=== PATIENT | male | born 1955 | race Caucasian/White ===

== ENCOUNTER 2020-12-31 22:37 | Observation (INO) ==
[2020-12-31] MEDS ORDERED: ASPIRIN CHEW 324 MG PO STA (22:55)
[2020-12-31] MEDS ORDERED: ASPIRIN 81 MG CHEW ONE (22:55)
--- NOTE | 2020-12-31 23:01 | Emergency Department Note ---
Impression & Plan Chest pain, Heart palpitations, Premature ventricular contraction ED Provider Note NAME: ABHI DOAN AGE: 65 SEX: M : 1955 ARRIVES VIA: Walk-In INFORMANT: Patient, ED PROVIDER(S): Manuel Lopez DO CHIEF COMPLAINT: Chest pain HPI: The patient is a 65-year-old male who is a history of coronary artery bypass grafting who presented to the emergency department for an evaluation of chest pain. The patient states that earlier this evening he started noticing chest pain while he was helping make dinner. 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 He states it was not overly exertional compared to his normal baseline. The patient started noticing pain in his left upper extremity and into his left upper chest. He has had similar episodes in the past with coronary artery syndrome however the patient states this pain is somewhat different. He did take baby aspirin as well as 3 sublingual nitroglycerin prior to coming to the emergency department without any a slight amount of relief of his pain. He denies having any shortness of breath. He denies having any back pain. He said no abdominal pain or vomiting. He denies having any lower extremity swelling. He states on his most recent catheterization his coronary artery bypass graft appeared to have failed and collapsed. He was felt to have no further intervention that would help him and his medical management at this time. Otherwise he states he has been very compliant with his outpatient medications. He did take a dose of beta-juana this evening as well. ROS: See above HPI for pertinent positives & negatives. A total of 10 systems reviewed and were otherwise negative. PAST MEDICAL HISTORY: See Below PAST SURGICAL HISTORY: See Below FAMILY HISTORY: See Below SOCIAL HISTORY: See Below HOME MEDICATIONS: See Below ALLERGIES: See Below VITALS: See Below PHYSICAL EXAMINATION: GENERAL: The patient is awake and alert. The patient is somewhat anxious appearing. EYES: The conjunctivae are clear. The pupils are round and reactive. EARS, NOSE, MOUTH AND THROAT: The nose is without any evidence of any deformity. NECK: The neck is nontender and supple. RESPIRATORY: Normal respiratory effort is noted there is no evidence of wheezing rhonchi or rales CARDIOVASCULAR: Regular rate and rhythm noted there no murmurs rubs or gallops normal S1 normal S2. GASTROINTESTINAL: The abdomen is soft. Abdomen is nontender. MUSCULOSKELETAL/EXTREMITIES: There is no evidence of gross deformity full range of motion is noted in the hips and shoulders. SKIN: There is no obvious evidence of any rash. There are no petechiae, pallor or cyanosis noted. NEUROLOGIC: Patient is awake alert and oriented x3. MEDICAL DECISION MAKING: The patient is a 65-year-old male who has a long cardiac history including coronary artery bypass grafting who presented to the emergency department for an evaluation of chest pain. The patient was also having episodes of palpitations which appear to be corresponding with PVCs. I discussed the patient's laboratory and radiographic studies with him. I also discussed the limitations of the emergency department work-up for chest pain with him. Given the patient's past medical history I do feel that he is high risk and outpatient cardiac work-up may not be ideal. I discussed the patient's condition with the on-call [facility] order dispatcher. I also discussed his case with the on-call [facility] hospitalist. He has agreed to evaluate the patient in the emergency department for further management and disposition. The patient was treated with aspirin in the emergency department. He was also given Lopressor. The patient took nitroglycerin prior to arrival. He does not have shortness of breath. I do not feel this is consistent with pulmonary embolism. Triage Nursing notes reviewed. Prior medical records reviewed Vital Signs: reviewed and remarkable for no significant abnormalities Differential diagnosis: Cardiac ischemia, aortic dissection, pulmonary embolism, pneumothorax, pneumonia, pericarditis, myocarditis, esophageal rupture, GERD, cholecystitis, pancreatitis, musculoskeletal, as well as other pathologies. ER treatment provided: See below Diagnostics interpreted by me: ECG: EKG was obtained in the emergency department. My interpretation is normal sinus rhythm at 74 bpm. There was no ectopy. There was no acute ST segment abnormalities noted. This was compared to a tracing from December 032018. No significant changes were noted. A second EKG was obtained in the emergency department. My interpretation is normal sinus rhythm at 65 bpm. There was no ectopy. There was no acute ST segment abnormalities noted. There was no significant change compared to the earlier tracing. Cardiac Monitoring: An order was placed for continuous cardiac monitoring. The monitor shows a rate of 63 bpm with sinus rhythm. Laboratory studies: As stated above and show below. Imaging studies: See below Consultation(s): [id number]: I discussed this case with Dr. Serrano who is on-call for [facility] cardio logy. 0015: I discussed this case with Dr. Yao who is on-call for [facility] hospitalist. They will evaluate the patient in the emergency department. Past Med/Surg History Medical History CAD (coronary artery disease) s/p PCI to LAD due to atretic WHITAKER graft CAD (coronary artery disease) Diabetes Diabetes HTN (hypertension) Hyperlipidemia Hypothyroidism associated with surgical procedure Kidney disease Obesity (BMI 30.0-34.9) Thyroid cancer thyroidectomy in 2001 Thyroidectomy (02/21/13) Surgical History Aortocoronary bypass status 03/2014 : 2x CABG at [facility] [place] [place] History of cardiac cath History of thyroidectomy Stented coronary artery Occluded Staphenous Vein Graft. NIMESH x's 4 Social History Smoking Status: Never smoker Second Hand Exposure: Yes ( smoker); Hx Alcohol Use: No Hx Substance Use: No Preferred Language: Georgian Communication Ability: Effective Dispensing Operator Required: No Beliefs That Will Affect Care: None marital status: Current Living Situation: Spouse current occupation: Retired Feels Safe at Home: Yes Assistive Devices: None Allergies Allergies Allergy/AdvReac Type Severity Reaction Status Date / Time Quinolones Allergy Unknown Unknown Verified 04/24/20 22:21 ofloxacin [From Floxin] AdvReac Severe Hallucinati Verified 04/24/20 22:21 ng Home Meds Home Medications Medication Instructions Recorded Confirmed alprazolam 0.5 mg tablet (Xanax) 0.5 mg PO HS PRN 01/29/18 12/31/20 aspirin 81 mg tablet,delayed 81 mg PO HS 01/29/18 12/31/20 release duloxetine 60 mg capsule,delayed 60 mg PO QAM 01/29/18 12/31/20 release (Cymbalta) metoprolol succinate 100 mg 100 mg PO HS 01/29/18 12/31/20 tablet,extended release 24 hr nitroglycerin 0.4 mg sublingual 0.4 mg SUBLINGUAL DIRECTED PRN 01/29/18 12/31/20 tablet (Nitrostat) icosapent ethyl 1 gram capsule 1 g PO DAILY 12/03/18 12/31/20 (Vascepa) atorvastatin 80 mg tablet (Lipitor) 80 mg PO HS 09/13/19 12/31/20 cyanocobalamin (vitamin B-12) 100 100 mcg PO DAILY 09/13/19 12/31/20 mcg tablet prasugrel 10 mg tablet (Effient) 10 mg PO QAM 09/13/19 12/31/20 ascorbic acid (vitamin C) 500 mg 500 mg PO QAM 04/24/20 12/31/20 tablet (Vitamin C) dexlansoprazole 60 mg 60 mg PO QAM 04/24/20 12/31/20 capsule,biphase delayed release (Dexilant) ferrous sulfate 325 mg (65 mg 325 mg PO QAM 04/24/20 12/31/20 iron) tablet levothyroxine 137 mcg tablet 137 mcg PO QAM 04/24/20 12/31/20 (Synthroid) metformin 500 mg tablet,extended 1,000 mg PO QAM 04/24/20 12/31/20 release 24 hr ondansetron 4 mg disintegrating 4 mg PO Q8H PRN 04/24/20 12/31/20 tablet acetaminophen 500 mg tablet 1,000 mg PO Q6H PRN 12/31/20 12/31/20 (Tylenol Extra Strength) empagliflozin 25 mg tablet 25 mg PO DAILY 12/31/20 12/31/20 (Jardiance) ezetimibe 10 mg tablet 10 mg PO DAILY 12/31/20 12/31/20 gabapentin 300 mg capsule 300 mg PO DAILY 12/31/20 12/31/20 isosorbide mononitrate 60 mg 60 mg PO DAILY 12/31/20 12/31/20 tablet,extended release 24 hr Previous Rx's Medication Instructions Recorded tamsulosin 0.4 mg capsule 0.4 mg PO DAILY #30 cap 04/26/20 Results & Data (ED) Vital Signs Vital Signs - 24 hr 12/31/20 22:39 12/31/20 23:00 12/31/20 23:30 Temperature 36.5 C Temperature Source Temporal Artery Scan Pulse Rate 78 71 70 Pulse Rate from SpO2 Sensor 71 71 Respiratory Rate 18 21 20 Respiratory Effort / Characteristics Non-Labored Spontaneous Respiratory Depth Normal Respiratory Pattern Regular Blood Pressure 137/78 128/76 121/81 Blood Pressure Mean 97 93 94 Blood Pressure Position Sitting Pulse Oximetry 96 96 95 Oxygen Delivery Method Room Air Sepsis Recent Fever Within 48 Hours No Sepsis New/Unexplained Change in Mental Status No Sepsis Action Taken by Nursing No Action Required 01/01/21 00:00 01/01/21 00:11 01/01/21 00:30 Temperature Temperature Source Pulse Rate 68 71 64 Pulse Rate from SpO2 Sensor 68 64 Respiratory Rate 19 19 Respiratory Effort / Characteristics Respiratory Depth Respiratory Pattern Blood Pressure 123/78 123/78 115/79 Blood Pressure Mean 93 91 Blood Pressure Position Pulse Oximetry 95 91 Oxygen Delivery Method Sepsis Recent Fever Within 48 Hours Sepsis New/Unexplained Change in Mental Status Sepsis Action Taken by Nursing 01/01/21 01:00 Temperature Temperature Source Pulse Rate 63 Pulse Rate from SpO2 Sensor 63 Respiratory Rate 25 H Respiratory Effort / Characteristics Respiratory Depth Respiratory Pattern Blood Pressure 132/77 Blood Pressure Mean 95 Blood Pressure Position Pulse Oximetry 95 Oxygen Delivery Method Sepsis Recent Fever Within 48 Hours Sepsis New/Unexplained Change in Mental Status Sepsis Action Taken by Shelter Medications Current Medication List: was personally reviewed by me Laboratory Data Attestation: I reviewed the patient's lab results. Result diagrams: 12/31/20 23:05 12/31/20 23:05 Lab Results 12/31/20 12/31/20 12/31/20 Range/Units 23:05 23:05 23:05 WBC 4.90 (4.8-10.8) K/uL RBC 5.94 (4.7-6.1) M/uL Hgb 16.9 (14.0-18.0) g/dL Hct 50.0 (42-52) % MCV 84.2 (80-100) fL MCH 28.5 (25-34) pg MCHC 33.8 (32-36) g/dL RDW Std Deviation 42.2 (36.4-46.3) fL RDW Coeff of Cuco 14.0 (11.5-14.5) % Plt Count 163 (130-400) K/uL MPV 9.0 (7.4-10.4) fL Immature Gran % (Auto) 0.4 % Neut % (Auto) 66.7 % Lymph % (Auto) 9.0 % [place] % (Auto) 18.2 % Eos % (Auto) 5.5 % Baso % (Auto) 0.2 % Neut # (Auto) 3.27 (1.4-6.5) K/uL Lymph # (Auto) 0.44 L (1.2-3.4) K/uL [place] # (Auto) 0.89 H (0.11-0.59) K/uL Eos # (Auto) 0.27 (0-0.5) K/uL Baso # (Auto) 0.01 (0-0.2) K/uL Immature Gran # (Auto) 0.02 (0.00-0.02) K/uL APTT 29.4 (21.0-31.0) Seconds PTT Ratio 1.1 Sodium 140 (136-145) mmol/L Potassium 3.9 (3.5-5.1) mmol/L Chloride 105 (98-107) mmol/L Carbon Dioxide 27 (21-32) mmol/L Anion Gap 8.0 (3-11) BUN 18 (7-18) mg/dl Creatinine 1.69 H (0.6-1.4) mg/dl Est Cr Clr Drug Dosing 49.7 ml/min Est GFR ( Amer) 48.7 ml/min Est GFR (Non-Af Amer) 42.0 ml/min BUN/Creatinine Ratio 10.8 (10-20) Glucose 114 H (70-99) mg/dl Calcium 9.7 (8.5-10.1) mg/dl Total Bilirubin 1.0 (0.2-1) mg/dl AST 15 (15-37) U/L ALT 26 (12-78) U/L Alkaline Phosphatase 108 (45-117) U/L Troponin I < 0.015 (0-0.045) ng/ml Total Protein 7.4 (6.4-8.2) gm/dl Albumin 4.0 (3.4-5.0) gm/dl Globulin 3.4 (2.5-4.0) gm/dl Albumin/Globulin Ratio 1.2 (0.9-2) Lipase 156 (73-393) U/L COVID-19 Eval Order 01/01/21 Range/Units 00:12 WBC (4.8-10.8) K/uL RBC (4.7-6.1) M/uL Hgb (14.0-18.0) g/dL Hct (42-52) % MCV (80-100) fL MCH (25-34) pg MCHC (32-36) g/dL RDW Std Deviation (36.4-46.3) fL RDW Coeff of Cuco (11.5-14.5) % Plt Count (130-400) K/uL MPV (7.4-10.4) fL Immature Gran % (Auto) % Neut % (Auto) % Lymph % (Auto) % [place] % (Auto) % Eos % (Auto) % Baso % (Auto) % Neut # (Auto) (1.4-6.5) K/uL Lymph # (Auto) (1.2-3.4) K/uL [place] # (Auto) (0.11-0.59) K/uL Eos # (Auto) (0-0.5) K/uL Baso # (Auto) (0-0.2) K/uL Immature Gran # (Auto) (0.00-0.02) K/uL APTT (21.0-31.0) Seconds PTT Ratio Sodium (136-145) mmol/L Potassium (3.5-5.1) mmol/L Chloride (98-107) mmol/L Carbon Dioxide (21-32) mmol/L Anion Gap (3-11) BUN (7-18) mg/dl Creatinine (0.6-1.4) mg/dl Est Cr Clr Drug Dosing ml/min Est GFR ( Amer) ml/min Est GFR (Non-Af Amer) ml/min BUN/Creatinine Ratio (10-20) Glucose (70-99) mg/dl Calcium (8.5-10.1) mg/dl Total Bilirubin (0.2-1) mg/dl AST (15-37) U/L ALT (12-78) U/L Alkaline Phosphatase (45-117) U/L Troponin I (0-0.045) ng/ml Total Protein (6.4-8.2) gm/dl Albumin (3.4-5.0) gm/dl Globulin (2.5-4.0) gm/dl Albumin/Globulin Ratio (0.9-2) Lipase (73-393) U/L COVID-19 Eval Order Covid19 at [facility] Administered Medications Discontinued Medications Aspirin (Aspirin 81 Mg Chew) Confirm Administered Dose 243 mg .ROUTE .STK-MED ONE Stop: 12/31/20 22:56 Last Admin: 12/31/20 22:57 Dose: 243 mg Documented by: [id number] Metoprolol Tartrate (Metoprolol Tartrate 1 Mg/Ml Vial) 5 mg IV NOW STA Stop: 01/01/21 00:01 Last Admin: 01/01/21 00:11 Dose: 5 mg Documented by: [id number] Imaging Data Attestation: I personally reviewed and interpreted this imaging study as follows: My Impression: 1 view chest x-ray was obtained in the emergency department. Postoperative changes were noted. No free air was noted, no definite infiltrate was noted, this was compared to a chest x-ray from December 032018. No significant changes were noted. Discharge Plan Visit Data Chief Complaint: Cardiac Assessment Stated Complaint: PAIN IN L ARM SOMETIMES, HX HEART PROBLEMS ED Provider: Manuel Lopez Discharge Problem: Chest pain, Heart palpitations, Premature ventricular contraction Patient Disposition: Being Evaluated by Hospitalist Condition: Good Forms Stand Alone Forms: My [facility] Prescriptions Prescriptions: No Action prasugrel [Effient] 10 mg tablet 10 mg PO QAM RF: 0 cyanocobalamin (vitamin B-12) 100 mcg tablet 100 mcg PO DAILY RF: 0 atorvastatin [Lipitor] 80 mg tablet 80 mg PO HS RF: 0 icosapent ethyl [Vascepa] 1 gram Capsule 1 g PO DAILY RF: 0 aspirin 81 mg Tablet,Delayed Release (Dr/Ec) 81 mg PO HS RF: 0 alprazolam [Xanax] 0.5 mg Tablet 0.5 mg PO HS PRN (Reason: Sleep) RF: 0 metoprolol succinate 100 mg tablet extended release 24 hr 100 mg PO HS RF: 0 nitroglycerin [Nitrostat] 0.4 mg Tablet, Sublingual 0.4 mg Sublingual DIRECTED PRN (Reason: Chest Pain) RF: 0 duloxetine [Cymbalta] 60 mg Capsule,Delayed Release(Dr/Ec) 60 mg PO QAM RF: 0 levothyroxine [Synthroid] 137 mcg tablet 137 mcg PO QAM RF: 0 ascorbic acid (vitamin C) [Vitamin C] 500 mg Tablet 500 mg PO QAM RF: 0 ferrous sulfate 325 mg (65 mg iron) tablet 325 mg PO QAM RF: 0 ondansetron 4 mg tablet,disintegrating 4 mg PO Q8H PRN (Reason: Nausea) RF: 0 metformin 500 mg tablet extended release 24 hr 1,000 mg PO QAM RF: 0 Dexilant 60 mg capsule,biphase delayed releas 60 mg PO QAM RF: 0 tamsulosin 0.4 mg capsule 0.4 mg PO DAILY Qty: 30 RF: 0 acetaminophen [Tylenol Extra Strength] 500 mg Tablet 1,000 mg PO Q6H PRN (Reason: Pain) RF: 0 isosorbide mononitrate 60 mg tablet extended release 24 hr 60 mg PO DAILY RF: 0 gabapentin 300 mg capsule 300 mg PO DAILY RF: 0 ezetimibe 10 mg tablet 10 mg PO DAILY RF: 0 Jardiance 25 mg tablet 25 mg PO DAILY RF: 0 Referrals Referrals: Abundio Melissa MD [Primary Care Provider] -
[2020-12-31 23:25] LABS: Basophils # (auto) 0.01 K/uL (0-0.2); Basophils % (auto) 0.2 %; Eosinophils # (auto) 0.27 K/uL (0-0.5); Eosinophils % (auto) 5.5 %; Hemoglobin 16.9 g/dL (14.0-18.0); Immature Granulocytes # (auto) 0.02 K/uL (0.00-0.02); Immature Granulocytes % (auto) 0.4 %; Lymphocytes # (auto) 0.44 K/uL (1.2-3.4); Mean Corpuscular Hemoglobin 28.5 pg (25-34); Mean Corpuscular Hgb Conc 33.8 g/dL (32-36); Mean Corpuscular Volume 84.2 fL (80-100); Monocytes # (auto) 0.89 K/uL (0.11-0.59); Monocytes % (auto) 18.2 %; Neutrophils # (auto) 3.27 K/uL (1.4-6.5); Neutrophils % (auto) 66.7 %; Platelet Count 163 K/uL (130-400); RDW Standard Deviation 42.2 fL (36.4-46.3); Red Blood Count 5.94 M/uL (4.7-6.1)
[2020-12-31 23:45] LABS: Alanine Aminotransferase 26 U/L (12-78); Aspartate Aminotransferase 15 U/L (15-37); BUN Creatinine Ratio 10.8 (10-20); Blood Urea Nitrogen 18 mg/dl (7-18); Calcium 9.7 mg/dl (8.5-10.1); Carbon Dioxide 27 mmol/L (21-32); Chloride 105 mmol/L (98-107); Creatinine Clr Calc Pharmacy 49.7 ml/min; Est GFR (African American) 48.7 ml/min; Glucose 114 mg/dl (70-99); Lipase 156 U/L (73-393); Potassium 3.9 mmol/L (3.5-5.1); Sodium 140 mmol/L (136-145)
[2020-12-31 23:46] LABS: Partial Thromboplastin Ratio 1.1; Partial Thromboplastin Time 29.4 Seconds (21.0-31.0)
[2020-12-31 23:50] LABS: Albumin Globulin Ratio 1.2 (0.9-2); Alkaline Phosphatase 108 U/L (45-117); Globulin 3.4 gm/dl (2.5-4.0); Total Protein 7.4 gm/dl (6.4-8.2); Troponin I < 0.015 ng/ml (0-0.045)
[2021-01-01] MEDS ORDERED: METOPROLOL TARTRATE 1 MG/ML VIAL IV STA
[2021-01-01] MEDS ORDERED: ONDANSETRON INJ 2 MG/ML 2 ML VIAL IV PRN (03:56)
[2021-01-01] MEDS ORDERED: NITROGLYCERIN SL 0.4 MG/TAB TAB SL PRN ×2 (03:56)
[2021-01-01] MEDS ORDERED: ACETAMINOPHEN 325 MG TAB PO PRN (03:56)
[2021-01-01] MEDS ORDERED: ALPRAZolam 0.5 MG TABLET PO PRN (03:56)
[2021-01-01] MEDS ORDERED: POLYETHYLENE (MIRALAX) 17 GM PACK PO PRN (03:56)
[2021-01-01] MEDS ORDERED: ACETAMINOPHEN HOME PACK 500 MG TABLET PO PRN (03:56)
[2021-01-01] MEDS ORDERED: ONDANSETRON 4 MG OD TAB PO PRN (04:26)
[2021-01-01] MEDS ORDERED: GLUCOSE 40% GEL 15 GM TUBE PO PRN (04:30)
[2021-01-01] MEDS ORDERED: GLUCAGON FOR INJ 1 MG VIAL IM PRN (04:30)
[2021-01-01] MEDS ORDERED: GLUCOSE 10 TABS/TUBE PO PRN (04:30)
[2021-01-01] MEDS ORDERED: DEXTROSE 50% 50 ML SYRINGE IV PRN (04:30)
[2021-01-01] MEDS ORDERED: CARBOHYDRATES FOR HYPOGLYCEMIA PO PRN (04:30)
--- NOTE | 2021-01-01 05:04 | History and Physical Report ---
DATE OF ADMISSION: 01/01/2021. CHIEF COMPLAINT: Chest pain. 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 The patient says he noticed chest pain around dinner time, initially started in the left arm and on and off in the chest. He could not eat much. He took 3 nitros but the pain did not improve and decided to come to the ER. Currently, pain is better, but still comes on and off. Initial EKG and troponins are negative. Currently, resting comfortably and hemodynamically stable. Denies any shortness of breath, no sweating, no nausea. He has some headache from the nitro, no cough, no fevers, no blurred visions, no earache, no runny nose, no sore throat. Appetite is okay otherwise, no abdominal pain, normal bowel and bladder movements. He says , he was in [place], had a cardiac catheterization and his venous grafts had collapsed, but he is currently on medical management. Recently saw [facility] for any further recommendations and still waiting for their opinion. ALLERGIES: QUINOLONES. PAST MEDICAL HISTORY: As mentioned above. PAST SURGICAL HISTORY: CABG, bronchoscopy, colonoscopy, cardiac catheterization, laparoscopic cholecystectomy, removal of thyroid gland. MEDICATIONS: The patient is on Tylenol Extra Strength 1000 mg p.o. q. 6 hours p.r.n., Xanax 0.5 mg p.o. at bedtime p.r.n., vitamin C 500 mg p.o. a.m., aspirin 81 mg p.o. at bedtime, atorvastatin 80 mg p.o. at bedtime, vitamin B12 100 mg p.o. daily, Dexilant 60 mg p.o. a.m., Cymbalta 60 mg p.o. a.m., Jardiance 25 mg p.o. daily, ezetimibe 10 p.o. daily, ferrous sulfate 325 mg p.o. a.m., gabapentin 300 mg p.o. daily, Vascepa 1 gram p.o. daily, isosorbide mononitrate 60 mg p.o. daily, isosorbide mononitrate 120 mg p.o. daily, levothyroxine 137 mcg p.o. daily, metformin 1000 mg p.o. a.m., metoprolol succinate 100 mg p.o. at bedtime, Nitrostat 0.4 mg sublingual p.r.n., Zofran 4 mg p.o. q. 8 hours p.r.n., prasugrel 10 mg p.o. a.m., Flomax 0.4 mg p.o. daily. FAMILY HISTORY: Significant for brother had COVID, ulcerative colitis. Sister has Crohn's disease, father has diabetes, heart disorder; mother has diabetes. SOCIAL HISTORY: , no smoking, no alcohol, no drug use. REVIEW OF SYSTEMS: As per HPI. Rest of review of systems is negative. PHYSICAL EXAMINATION: GENERAL: The patient is of moderate build, not in acute distress. VITAL SIGNS: Temperature 36.5, pulse 60, respiratory rate 16, blood pressure 116/76, oxygen 95% on room air. HEENT: Pupils equal, round and reactive to light. Oral mucosa moist. NECK: No JVD, no neck masses. CARDIOVASCULAR: S1 and S2 heard. Regular rate and rhythm. No murmur, no gallop. RESPIRATORY SYSTEM: Normal AP diameter. No accessory muscle use. No wheezing, no crackles. ABDOMEN: Soft, bowel sounds present, nontender, no distention. CENTRAL NERVOUS SYSTEM: Cranial nerves II-XII grossly intact, nonfocal. EXTREMITIES: No edema, no erythema. LABORATORY DATA: WBC 4.8, hemoglobin 16.9, hematocrit 50, platelets 163. APTT 29.1. Sodium 140, potassium 3.9, chloride 105, bicarbonate 27, BUN 18, creatinine 1.69, serum glucose 114, calcium 9.7, total bilirubin 1, AST 15, ALT 26, alkaline phosphatase 108. Troponin I less than 0.015. Lipase 156. SARS-CoV-2 PCR negative. IMAGING DATA: Chest x-ray, no acute findings. EKG: Normal sinus rhythm, rate of 65, no significant change was found. ASSESSMENT AND PLAN: This is a 65-year-old male who presents with chest pain. 1. Chest pain, history of CAD status post CABG, status post stent. As per patient, his venous grafts had stenotic and is currently under medical management. He recently saw [facility], waiting for their recommendations. Currently, EKG and troponins are unremarkable. Follow the serial enzymes, echo. Keep him n.p.o. Continue his home medications. Consult Cardiology in a.m. for further recommendations. 2. History of CAD, status post stent. s/p cabg. Continue his home medication of aspirin, prasugrel, atorvastatin, isosorbide mononitrate, metoprolol succinate. We will monitor. 3. History of diabetes: Hold his home medication, place on insulin sliding scale. Follow the blood sugars. 4. History of hypercalcemia with sarcoidosis. Follow up. 5. Obstructive sleep apnea, on CPAP at bedtime. 6. GERD, home medication 7. Chronic kidney disease stage III, currently creatinine of 1.69, seems to be at baseline per the recent labs. Follow repeat labs. 8. Deep venous thrombosis prophylaxis. Sequential compression devices. DISPOSITION: Closely monitor in tele floor. Level 1 full code. Expect to discharge home and follow with family doctor. Job ID: [id number] [facility] HEALTH SYSTEMJosé Miguel
[2021-01-01 05:23] LABS: Basophils # (auto) 0.01 K/uL (0-0.2); Basophils % (auto) 0.2 %; Eosinophils # (auto) 0.34 K/uL (0-0.5); Eosinophils % (auto) 7.7 %; Hematocrit (blood only) 47.1 % (42-52); Hemoglobin 15.9 g/dL (14.0-18.0); Immature Granulocytes # (auto) 0.02 K/uL (0.00-0.02); Immature Granulocytes % (auto) 0.5 %; Lymphocytes # (auto) 0.57 K/uL (1.2-3.4); Mean Corpuscular Hemoglobin 28.3 pg (25-34); Mean Corpuscular Hgb Conc 33.8 g/dL (32-36); Mean Platelet Volume 9.2 fL (7.4-10.4); Monocytes # (auto) 1.01 K/uL (0.11-0.59); Neutrophils # (auto) 2.45 K/uL (1.4-6.5); Neutrophils % (auto) 55.6 %; Platelet Count 156 K/uL (130-400); RDW Standard Deviation 42.7 fL (36.4-46.3); Red Blood Count 5.61 M/uL (4.7-6.1)
[2021-01-01 05:41] LABS: BUN Creatinine Ratio 12.8 (10-20); Blood Urea Nitrogen 20 mg/dl (7-18); Carbon Dioxide 26 mmol/L (21-32); Chloride 108 mmol/L (98-107); Creatinine Clr Calc Pharmacy 54.9 ml/min; Est GFR (African American) 54.9 ml/min; Est GFR (Non-African American) 47.4 ml/min; Glucose 106 mg/dl (70-99); Magnesium 1.9 mg/dl (1.8-2.4); Potassium 3.7 mmol/L (3.5-5.1); Sodium 140 mmol/L (136-145)
[2021-01-01 05:45] LABS: Troponin I < 0.015 ng/ml (0-0.045)
[2021-01-01] MEDS ORDERED: INSULIN ASPART 100 UNITS/ML 3 ML PEN SC SCH (06:00)
[2021-01-01] MEDS ORDERED: LEVOTHYROXINE SODIUM 137 MCG TABLET PO SCH (06:30)
--- NOTE | 2021-01-01 07:56 | XRay Report ---
SINGLE VIEW CHEST CLINICAL HISTORY: Atypical chest pain. FINDINGS: An AP, portable, upright chest radiograph is compared to study dated 12/03/2018 and correlate d with chest CT dated 03/03/2020. The patient is status post midline sternotomy. 4 views of the herberth c orresponds to mediastinal lymphadenopathy when compared to prior CT scans. The heart is enlarged noti ng atherosclerotic calcification of the thoracic aorta. The pulmonary vasculature is noncongested. Th ere is bibasilar scarring/atelectasis. No airspace consolidation or large pleural effusion is identif ied. No pneumothorax is seen. The skeletal structures are osteopenic. The bony thorax is grossly inta ct. IMPRESSION: 1. Cardiomegaly with no acute cardiopulmonary abnormality. 2. Hilar enlargement corresponds to lymphadenopathy when correlated with prior CT scans. This is da lar to previous. ACT 112: Negative or not required by law. Electronically signed by: Mario Loving M.D. 01/01/2021 7:54 AM
[2021-01-01 07:58] LABS: Estimated Average Glucose 143 mg/dl; Hemoglobin A1C 6.6 % (4.5-5.6)
[2021-01-01 08:32] VITALS: O2SAT 98
[2021-01-01] MEDS ORDERED: ASCORBIC ACID 500 MG TAB PO SCH (09:00)
[2021-01-01] MEDS ORDERED: CYANOCOBALAMIN (VITAMIN B-12) 100 MCG TABLET PO SCH (09:00)
[2021-01-01] MEDS ORDERED: OMEGA-3 (PURIFIED FISH OIL) 1 GM CAP PO SCH (09:00)
[2021-01-01] MEDS ORDERED: DULoxetine HCL 60 MG CAP PO SCH (09:00)
[2021-01-01] MEDS ORDERED: PRASugrel TAB 10 MG TAB PO SCH (09:00)
[2021-01-01] MEDS ORDERED: TAMSULOSIN HCL 0.4 MG CAP PO SCH (09:00)
[2021-01-01] MEDS ORDERED: EZETIMIBE 10 MG TABLET PO SCH (09:00)
[2021-01-01] MEDS ORDERED: FERROUS SULFATE 325 MG TAB PO SCH (09:00)
[2021-01-01] MEDS ORDERED: PANTOprazole 40 MG TAB PO SCH (09:00)
[2021-01-01] MEDS ORDERED: ISOSORBIDE MONO EXTENDED REL 60 MG TABCR PO SCH (09:00)
[2021-01-01] MEDS ORDERED: GABAPENTIN 300 MG CAP PO SCH (09:00)
--- NOTE | 2021-01-01 10:43 | Cardiology Consultation ---
Date of Consultation January 01, 2021 Assessment & Plan (1) Chest pain: (2) Premature ventricular contraction: (3) CAD (coronary artery disease): Patient is a complex 65-year-old male with multiple coronary inventions, last cardiac catheterization July 2020 demonstrating chronic occlusion of the left circumflex and right coronary artery. Patient has class II 3 angina pectoris and presents now with symptoms of chest pressure pain and left arm pain, sensed ventricular ectopy. No signs of acute coronary syndrome by EKG, echo or cardiac enzyme. Patient in mid process of evaluation by [facility] regarding interventions available Recommend increasing medical therapy. Add low-dose amlodipine 2.5 mg/day for possible antianginal effect, aid in collaterals. Continue all other prehospital medications including metoprolol succinate. Patient can be discharged home for outpatient follow-up. See [facility] cardiology in the next 2 weeks. Patient has appointment with [facility] next week, videoconference after review of imaging History of Present Illness Reason for Consultation: Chest pain chronic coronary artery disease Requesting Physician: Dr. Campos Attending Physician: Willian Campos MD History of Present Illness Patient is a 65-year-old male with complex coronary artery disease prior coronary bypass grafting and coronary interventions with chronic class III angina pectoris. Patient presented last night with symptoms of left arm and chest pain, sensed ventricular ectopy. Symptoms were not resolving and he sought ER evaluation. EKGs and cardiac enzymes without ischemic findings. Patient asymptomatic this morning anxious to be discharged. He denies recent fevers chills or infections. Notes no bleeding difficulties. Notes exertional dyspnea is a chronic issue. Appetite and weight have been stable. Sugars are controlled. Allergies Allergy/AdvReac Type Severity Reaction Status Date / Time Quinolones Allergy Unknown Unknown Verified 04/24/20 22:21 ofloxacin [From Floxin] AdvReac Severe Hallucinati Verified 04/24/20 22:21 ng Home Medications Medication Instructions Recorded Confirmed Type alprazolam 0.5 mg tablet (Xanax) 0.5 mg PO HS PRN 01/29/18 12/31/20 History aspirin 81 mg tablet,delayed 81 mg PO HS 01/29/18 12/31/20 History release duloxetine 60 mg capsule,delayed 60 mg PO QAM 01/29/18 12/31/20 History release (Cymbalta) metoprolol succinate 100 mg 100 mg PO HS 01/29/18 12/31/20 History tablet,extended release 24 hr nitroglycerin 0.4 mg sublingual 0.4 mg SUBLINGUAL DIRECTED PRN 01/29/18 12/31/20 History tablet (Nitrostat) icosapent ethyl 1 gram capsule 1 g PO DAILY 12/03/18 12/31/20 History (Vascepa) atorvastatin 80 mg tablet (Lipitor) 80 mg PO HS 09/13/19 12/31/20 History cyanocobalamin (vitamin B-12) 100 100 mcg PO DAILY 09/13/19 12/31/20 History mcg tablet prasugrel 10 mg tablet (Effient) 10 mg PO QAM 09/13/19 12/31/20 History ascorbic acid (vitamin C) 500 mg 500 mg PO QAM 04/24/20 12/31/20 History tablet (Vitamin C) dexlansoprazole 60 mg 60 mg PO QAM 04/24/20 12/31/20 History capsule,biphase delayed release (Dexilant) ferrous sulfate 325 mg (65 mg 325 mg PO QAM 04/24/20 12/31/20 History iron) tablet levothyroxine 137 mcg tablet 137 mcg PO QAM 04/24/20 12/31/20 History (Synthroid) metformin 500 mg tablet,extended 1,000 mg PO QAM 04/24/20 12/31/20 History release 24 hr ondansetron 4 mg disintegrating 4 mg PO Q8H PRN 04/24/20 12/31/20 History tablet tamsulosin 0.4 mg capsule 0.4 mg PO DAILY #30 cap 04/26/20 12/31/20 Rx acetaminophen 500 mg tablet 1,000 mg PO Q6H PRN 12/31/20 12/31/20 History (Tylenol Extra Strength) empagliflozin 25 mg tablet 25 mg PO DAILY 12/31/20 12/31/20 History (Jardiance) ezetimibe 10 mg tablet 10 mg PO DAILY 12/31/20 12/31/20 History gabapentin 300 mg capsule 300 mg PO DAILY 12/31/20 12/31/20 History isosorbide mononitrate 60 mg 120 mg PO DAILY 12/31/20 01/01/21 History tablet,extended release 24 hr Patient History Medical History CAD (coronary artery disease) s/p PCI to LAD due to atretic WHITAKER graft CAD (coronary artery disease) Diabetes Diabetes HTN (hypertension) Hyperlipidemia Hypothyroidism associated with surgical procedure Kidney disease Obesity (BMI 30.0-34.9) Thyroid cancer thyroidectomy in 2001 Thyroidectomy (02/21/13) Surgical History Aortocoronary bypass status 03/2014 : 2x CABG at [facility] [place] [facility] History of cardiac cath History of thyroidectomy Stented coronary artery Occluded Staphenous Vein Graft. NIMESH x's 4 Social History Smoking Status: Never smoker Second Hand Exposure: Yes ( smoker); Hx Alcohol Use: No Hx Substance Use: No Preferred Language: Armenian Communication Ability: Effective Fuse Cup Expander Required: No Beliefs That Will Affect Care: None marital status: Current Living Situation: Alone current occupation: Retired Other Information That Helps Us Care for You: No Feels Safe at Home: Yes Safety Concerns: Feels Safe At This Time Assistive Devices: CPAP Review of Systems 2 Review of Systems: All systems reviewed & are unremarkable except as noted in HPI & below Physical Exam Constitutional: WD/WN, vitals as above Eyes: PERRL, conjunctivae normal, anicteric sclerae ENMT: external ear and nose normal, oropharynx normal Neck: trachea midline, no thyromegaly Respiratory: normal respiratory effort, lungs clear to auscultation Cardiovascular: Rate/Rhythm: regular rate and regular rhythm Heart Sounds: normal S1 and normal S2; no gallop and no murmur Palpation: normal PMI Vessels: normal carotid upstroke and radial pulses present; no JVD and no carotid bruit Extremities: no edema Gastrointestinal (Abdomen): normal bowel sounds, soft, nontender, no hepatosplenomegaly Musculoskeletal: no cyanosis or clubbing, extremities motor strength 5/5 Skin: no rashes, warm and dry Neurologic: PERRL, EOMI, accommodation nl, no face palsy, no dysarthria Psychiatric: A+Ox3, euthymic affect Results & Data ([facility]) Vital Signs (Past 12 Hours) Vital Signs Temp Pulse Pulse Resp BP BP Pulse Ox 01/01/21 08:00 36.9 C 59 L 18 118/71 98 09/02/21 05:01 58 L 18 123/71 93 01/01/21 04:30 61 15 108/57 L 93 01/01/21 04:11 36.6 C 66 16 120/72 94 01/01/21 04:00 65 19 120/72 95 01/01/21 03:30 60 16 116/72 93 01/01/21 03:00 61 18 122/74 93 01/01/21 02:31 66 18 124/76 92 01/01/21 02:02 61 18 126/75 94 01/01/21 01:30 57 L 18 119/79 93 01/01/21 01:00 63 25 H 132/77 95 01/01/21 00:30 64 19 115/79 91 01/01/21 00:11 71 123/78 01/01/21 00:00 68 19 123/78 95 12/31/20 23:30 70 20 121/81 95 12/31/20 23:00 71 21 128/76 96 Laboratory Results Laboratory Results - last 24 hr 12/31/20 12/31/20 12/31/20 23:05 23:05 23:05 WBC 4.90 RBC 5.94 Hgb 16.9 Hct 50.0 MCV 84.2 MCH 28.5 MCHC 33.8 RDW Std Deviation 42.2 RDW Coeff of Cuco 14.0 Plt Count 163 MPV 9.0 Immature Gran % (Auto) 0.4 Neut % (Auto) 66.7 Lymph % (Auto) 9.0 [place] % (Auto) 18.2 Eos % (Auto) 5.5 Baso % (Auto) 0.2 Neut # (Auto) 3.27 Lymph # (Auto) 0.44 L [place] # (Auto) 0.89 H Eos # (Auto) 0.27 Baso # (Auto) 0.01 Immature Gran # (Auto) 0.02 APTT 29.4 PTT Ratio 1.1 Sodium 140 Potassium 3.9 Chloride 105 Carbon Dioxide 27 Anion Gap 8.0 BUN 18 Creatinine 1.69 H Est Cr Clr Drug Dosing 49.7 Est GFR ( Amer) 48.7 Est GFR (Non-Af Amer) 42.0 BUN/Creatinine Ratio 10.8 Glucose 114 H POC Glucose Estimat Average Glucose Hemoglobin A1c Calcium 9.7 Magnesium Total Bilirubin 1.0 AST 15 ALT 26 Alkaline Phosphatase 108 Troponin I < 0.015 Total Protein 7.4 Albumin 4.0 Globulin 3.4 Albumin/Globulin Ratio 1.2 Lipase 156 COVID-19 Eval Order SARS-CoV-2 (PCR) 01/01/21 01/01/21 01/01/21 00:12 00:12 05:12 WBC 4.40 L RBC 5.61 Hgb 15.9 Hct 47.1 MCV 84.0 MCH 28.3 MCHC 33.8 RDW Std Deviation 42.7 RDW Coeff of Cuco 14.0 Plt Count 156 MPV 9.2 Immature Gran % (Auto) 0.5 Neut % (Auto) 55.6 Lymph % (Auto) 13.0 [place] % (Auto) 23.0 Eos % (Auto) 7.7 Baso % (Auto) 0.2 Neut # (Auto) 2.45 Lymph # (Auto) 0.57 L [place] # (Auto) 1.01 H Eos # (Auto) 0.34 Baso # (Auto) 0.01 Immature Gran # (Auto) 0.02 APTT PTT Ratio Sodium Potassium Chloride Carbon Dioxide Anion Gap BUN Creatinine Est Cr Clr Drug Dosing Est GFR ( Amer) Est GFR (Non-Af Amer) BUN/Creatinine Ratio Glucose POC Glucose Estimat Average Glucose Hemoglobin A1c Calcium Magnesium Total Bilirubin AST ALT Alkaline Phosphatase Troponin I Total Protein Albumin Globulin Albumin/Globulin Ratio Lipase COVID-19 Eval Order Covid19 at [facility] SARS-CoV-2 (PCR) NEGATIVE 01/01/21 01/01/21 01/01/21 05:15 05:15 05:59 WBC RBC Hgb Hct MCV MCH MCHC RDW Std Deviation RDW Coeff of Cuco Plt Count MPV Immature Gran % (Auto) Neut % (Auto) Lymph % (Auto) [place] % (Auto) Eos % (Auto) Baso % (Auto) Neut # (Auto) Lymph # (Auto) [place] # (Auto) Eos # (Auto) Baso # (Auto) Immature Gran # (Auto) APTT PTT Ratio Sodium 140 Potassium 3.7 Chloride 108 H Carbon Dioxide 26 Anion Gap 6.0 BUN 20 H Creatinine 1.53 H Est Cr Clr Drug Dosing 54.9 Est GFR ( Amer) 54.9 Est GFR (Non-Af Amer) 47.4 BUN/Creatinine Ratio 12.8 Glucose 106 H POC Glucose 111 H Estimat Average Glucose 143 Hemoglobin A1c 6.6 H Calcium 9.0 Magnesium 1.9 Total Bilirubin AST ALT Alkaline Phosphatase Troponin I < 0.015 Total Protein Albumin Globulin Albumin/Globulin Ratio Lipase COVID-19 Eval Order SARS-CoV-2 (PCR) 01/01/21 10:41 WBC RBC Hgb Hct MCV MCH MCHC RDW Std Deviation RDW Coeff of Cuco Plt Count MPV Immature Gran % (Auto) Neut % (Auto) Lymph % (Auto) [place] % (Auto) Eos % (Auto) Baso % (Auto) Neut # (Auto) Lymph # (Auto) [place] # (Auto) Eos # (Auto) Baso # (Auto) Immature Gran # (Auto) APTT PTT Ratio Sodium Potassium Chloride Carbon Dioxide Anion Gap BUN Creatinine Est Cr Clr Drug Dosing Est GFR ( Amer) Est GFR (Non-Af Amer) BUN/Creatinine Ratio Glucose POC Glucose Estimat Average Glucose Hemoglobin A1c Calcium Magnesium Total Bilirubin AST ALT Alkaline Phosphatase Troponin I Pending Total Protein Albumin Globulin Albumin/Globulin Ratio Lipase COVID-19 Eval Order SARS-CoV-2 (PCR) (1) Chest pain Chest pain type: unspecified Qualified Code(s): R07.9 - Chest pain, unspecified
--- NOTE | 2021-01-01 11:16 | Hospitalist Progress Note ---
Date of Service January 01, 2021 delayed entry date of service noted above Assessment & Plan (1) Chest pain: Plan: ASSESSMENT AND PLAN: This is a 65-year-old male who presents with chest pain. 1. Chest pain, acute coronary syndrome ruled out - history of CAD status post CABG, status post stent. -Troponins negative EKG no signs of acute ischemia or infarct Echocardiogram unrevealing as per Dr. Serrano fire control technician g -Evaluated by Dr. Serrano Recommend addition of amlodipine 2.5 mg/day for possible antianginal effect Continue usual cardiac medications Follow-up with the clinic as scheduled next week 2. History of CAD, status post stent. s/p cabg. --Continue usual aspirin, prasugrel, atorvastatin, isosorbide mononitrate, metoprolol succinate. 3. History of diabetes: Continue usual regimen 4. History of hypercalcemia with sarcoidosis. Follow up. 5. Obstructive sleep apnea, on CPAP at bedtime. 6. GERD, home medication 7. Chronic kidney disease stage III, currently creatinine of 1.69, seems to be at baseline 8. Deep venous thrombosis prophylaxis. Sequential compression devices. DISPOSITION: [place] home Follow-up with [facility] in 1 week Follow-up with Nena fire control technician g as scheduled plan of care discussed with patient in detail and at length all questions answered he is understanding, agreeable, comfortable with the plan of care Admission and Anticipated Discharge Date Admission Date: January 01, 2021 Subjective ff up for chest pain, etc seen resting in bed, comfortable states he feels much better overall chest pain free no dyspnea, palpitations, dizziness no other symptoms states that he is ready and would like to be discharged Review of Systems Review of Systems: all noted and negative except for above Physical Exam Physical Exam: General- oriented x 3, not in distress, speaks in sentences with no effort or accessory muscle use Eyes- anicteric Neck- no JVD Lungs- clear BS BL no rales/wheezing Heart- normal rate, regular rhythm; no murmurs Abdomen- normal bowel sounds, nondistended, soft, nontender Extremities- no pretibial edema, no calf tenderness Neuro- alert, oriented x 3; no gross focal neurologic deficits Skin- warm & dry Results & Data Results & Data ([facility]) Vital Signs (Past 12 Hours) Vital Signs Temp Pulse Pulse Resp BP BP Pulse Ox 01/01/21 08:00 36.9 C 59 L 18 118/71 98 01/01/21 05:01 58 L 18 123/71 93 01/01/21 04:30 61 15 108/57 L 93 01/01/21 04:11 36.6 C 66 16 120/72 94 01/01/21 04:00 65 19 120/72 95 01/01/21 03:30 60 16 116/72 93 01/01/21 03:00 61 18 122/74 93 01/01/21 02:31 66 18 124/76 92 01/01/21 02:02 61 18 126/75 94 01/01/21 01:30 57 L 18 119/79 93 01/01/21 01:00 63 25 H 132/77 95 01/01/21 00:30 64 19 115/79 91 01/01/21 00:11 71 123/78 01/01/21 00:00 68 19 123/78 95 12/31/20 23:30 70 20 121/81 95 all noted and reviewed including below (1) Chest pain Chest pain type: unspecified Qualified Code(s): R07.9 - Chest pain, unspecified
[2021-01-01 12:23] VITALS: BP 125/76; PULSE 62; TEMP 98.6
[2021-01-01] MEDS ORDERED: ATORVASTATIN 40 MG TAB PO SCH (21:00)
[2021-01-01] MEDS ORDERED: METOPROLOL SUCC 50MG EXT REL TAB PO SCH (21:00)
[2021-01-01] MEDS ORDERED: ASPIRIN 81 MG ECTAB PO SCH (21:00)
--- NOTE | 2021-01-02 05:58 | Electrocardiogram Report ---
Test Reason : Blood Pressure : / mmHG Vent. Rate : 074 BPM Atrial Rate : 074 BPM P-R Int : 166 ms QRS Dur : 080 ms QT Int : 386 ms P-R-T Axes : 038 006 039 degrees QTc Int : 428 ms Poor data quality, interpretation may be adversely affected Normal sinus rhythm Normal ECG When compared with ECG of 03-DEC-2018 19:36, No significant change was found Confirmed by Kun Davies ([id number]) on 01/02/2021 5:58:38 AM Referred By: REFERRED SELF Confirmed By:Kun Davies
--- NOTE | 2021-01-02 05:59 | Electrocardiogram Report ---
Test Reason : Blood Pressure : / mmHG Vent. Rate : 065 BPM Atrial Rate : 065 BPM P-R Int : 162 ms QRS Dur : 086 ms QT Int : 410 ms P-R-T Axes : 014 -10 023 degrees QTc Int : 426 ms Poor data quality, interpretation may be adversely affected Normal sinus rhythm Normal ECG When compared with ECG of 31-DEC-2020 22:52, No significant change was found Confirmed by Kun Davies ([id number]) on 01/02/2021 5:59:16 AM Referred By: REFERRED SELF Confirmed By:Kun Davies
--- NOTE | 2021-01-05 17:32 | Discharge Summary ---
Date of Service January 05, 2021 Admission HPI Per Admitting Provider CHIEF COMPLAINT: Chest pain. 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 The patient says he noticed chest pain around dinner time, initially started in the left arm and on and off in the chest. He could not eat much. He took 3 nitros but the pain did not improve and decided to come to the ER. Currently, pain is better, but still comes on and off. Initial EKG and troponins are negative. Currently, resting comfortably and hemodynamically stable. Denies any shortness of breath, no sweating, no nausea. He has some headache from the nitro, no cough, no fevers, no blurred visions, no earache, no runny nose, no sore throat. Appetite is okay otherwise, no abdominal pain, normal bowel and bladder movements. He says , he was in [place], had a cardiac catheterization and his venous grafts had collapsed, but he is currently on medical management. Recently saw [facility] for any further recommendations and still waiting for their opinion. Admission Exam (Per Admitting) Constitutional GENERAL: The patient is of moderate build, not in acute distress. VITAL SIGNS: Temperature 36.5, pulse 60, respiratory rate 16, blood pressure 116/76, oxygen 95% on room air. HEENT: Pupils equal, round and reactive to light. Oral mucosa moist. NECK: No JVD, no neck masses. CARDIOVASCULAR: S1 and S2 heard. Regular rate and rhythm. No murmur, no gallop. RESPIRATORY SYSTEM: Normal AP diameter. No accessory muscle use. No wheezing, no crackles. ABDOMEN: Soft, bowel sounds present, nontender, no distention. CENTRAL NERVOUS SYSTEM: Cranial nerves II-XII grossly intact, nonfocal. EXTREMITIES: No edema, no erythema. Discharge Data Consultations 01/01/21 00:15 ED Decision to Admit Stat 01/01/21 08:00 Consult Cardiology Routine Hospital Course (1) Chest pain: ASSESSMENT AND PLAN: This is a 65-year-old male who presents with chest pain. 1. Chest pain, acute coronary syndrome ruled out - history of CAD status post CABG, status post stent. -Troponins negative EKG no signs of acute ischemia or infarct Echocardiogram unrevealing as per Dr. Serrano sales consulting director -Evaluated by Dr. Serrano Recommend addition of amlodipine 2.5 mg/day for possible antianginal effect Continue usual cardiac medications Follow-up with the clinic as scheduled next week 2. History of CAD, status post stent. s/p cabg. --Continue usual aspirin, prasugrel, atorvastatin, isosorbide mononitrate, metoprolol succinate. 3. History of diabetes: Continue usual regimen 4. History of hypercalcemia with sarcoidosis. Follow up. 5. Obstructive sleep apnea, on CPAP at bedtime. 6. GERD, home medication 7. Chronic kidney disease stage III, currently creatinine of 1.69, seems to be at baseline 8. Deep venous thrombosis prophylaxis. Sequential compression devices. DISPOSITION: [place] home Follow-up with [facility] in 1 week Follow-up with carmita sales consulting director as scheduled plan of care discussed with patient in detail and at length all questions answered he is understanding, agreeable, comfortable with the plan of care
== END 2021-01-01 12:39 | disposition home or self-care (01) ==
LOC: ED 22:37 → EDINP 22:37
DX: E66.9 Obesity, unspecified; I49.3 Ventricular premature depolarization; I25.10 Atherosclerotic heart disease of native coronary artery without angina pectoris; Z95.5 Presence of coronary angioplasty implant and graft; Z79.899 Other long term (current) drug therapy; K21.9 Gastro-esophageal reflux disease without esophagitis; R07.9 Chest pain, unspecified; D86.9 Sarcoidosis, unspecified; Z95.1 Presence of aortocoronary bypass graft; Z79.02 Long term (current) use of antithrombotics/antiplatelets; Z79.82 Long term (current) use of aspirin; G47.33 Obstructive sleep apnea (adult) (pediatric); E11.22 Type 2 diabetes mellitus with diabetic chronic kidney disease; N18.30 Chronic kidney disease, stage 3 unspecified

== ENCOUNTER 2022-07-31 17:41 | Inpatient (IN) ==
[2022-07-31] MEDS ORDERED: SODIUM CHLORIDE 0.9% 1000ML 1,000 ML IV SCH (17:45)
[2022-07-31] MEDS ORDERED: ONDANSETRON INJ 2 MG/ML 2 ML VIAL IV STA (17:45)
--- NOTE | 2022-07-31 17:48 | ED Triage Note ---
Date of Service July 31, 2022 History of Present Illness This patient was briefly evaluated while in triage. An abbreviated physical exam was performed. This patient is a 66-year-old Male who presents to the ED for evaluation of nausea and vomiting for the past few days. He has attempted Zofran without rel ief. He does not describe any distinct pain. Nothing to eat or drink today due to the symptoms. Physical Exam VITALS: Vitals are noted on the nurse's note and reviewed by myself. Vital signs stable. GENERAL: Well-developed, well-nourished, white male, who is mildly uncomfortable appearing. HEAD: Normocephalic atraumatic. NEURO: Patient was alert and oriented to person place and time. CN II through XII grossly intact. Initial orders for labs and / or imaging were placed and patient was placed in the waiting area until a bed is available. Please see further documentation for the full ED course. MDM / Impression Impression Impression: Lab test positive for detection of COVID-19 virus, Nausea & vomiting Impression: Nausea & vomiting Qualifiers: Vomiting type: unspecified Qualified Code(s): R11.2 - Nausea with vomiting, unspecified
--- NOTE | 2022-07-31 17:58 | Emergency Department Note ---
Impression & Plan Lab test positive for detection of COVID-19 virus, Nausea & vomiting ED Provider Note NAME: ABHI DOAN AGE: 66 SEX: M : 1955 ARRIVES VIA: Walk-In INFORMANT: Patient, ED PROVIDER(S): Manuel Lopez DO CHIEF COMPLAINT: Vomiting HPI: The patient is a 66-year-old male who presented to the emergency department for an evaluation of nausea vomiting. The patient states that he has had symptoms for the last 2 to 3 days. He has been exposed to some family members that have been positive for COVID. He denies having any cough. He denies having any chest pain or difficulty breathing. He denies having any swelling in the legs. The patient has extensive cardiac history. He does take blood thinners. He denies having any black or bloody bowel movements. The patient has not been seen by provider today. Because of the weekend he came to the emergency department for further evaluation. ROS: See above HPI for pertinent positives & negatives. A total of 10 systems reviewed and were otherwise negative. PAST MEDICAL HISTORY: See Below PAST SURGICAL HISTORY: See Below FAMILY HISTORY: See Below SOCIAL HISTORY: See Below HOME MEDICATIONS: See Below ALLERGIES: See Below VITALS: See Below PHYSICAL EXAMINATION: GENERAL: The patient is awake and alert. He is very anxious appearing. EYES: The conjunctivae are clear. The pupils are round and reactive. EARS, NOSE, MOUTH AND THROAT: The nose is without any evidence of any deformity. NECK: The neck is nontender and supple. RESPIRATORY: Normal respiratory effort is noted there is no evidence of wheezing rhonchi or rales CARDIOVASCULAR: Regular rate and rhythm noted there no murmurs rubs or gallops normal S1 normal S2. GASTROINTESTINAL: The abdomen is soft. Abdomen is nontender. MUSCULOSKELETAL/EXTREMITIES: There is no evidence of gross deformity full range of motion is noted in the hips and shoulders. SKIN: There is no obvious evidence of any rash. There are no petechiae, pallor or cyanosis noted. NEUROLOGIC: Patient is awake alert and oriented x3 MEDICAL DECISION MAKING: The patient is a 66-year-old male who presented to the emergency department for nausea vomiting. The patient has been exposed to COVID-19 through family members. The patient was treated with IV fluids and IV antiemetics. He was reevaluated multiple times. He was feeling somewhat better but was very concerned because he was not able to keep down his medications and he takes multiple cardiac medications. For this reason I discussed patient's condition with the on-call [facility] hospitalist. They have agreed to evaluate the patient in the emergency department for further management and disposition. Triage Nursing notes reviewed. Prior medical records reviewed Vital Signs: reviewed and remarkable for no significant abnormalities Differential diagnosis: Gastroenteritis, food borne illness, infections, appendicitis, diverticulitis, inflammatory bowel disease, obstruction, GI bleed, biliary pathology, volvulus, as well as other pathologies. ER treatment provided: See below Diagnostics interpreted by me: ECG: EKG was obtained in the emergency department. My interpretation is normal sinus rhythm at 75 bpm. There is no ectopy. Nonspecific ST segment depressions were noted. Inferior T wave inversions were noted. This was compared to a tracing from April 19, 2021. No changes were noted. Cardiac Monitoring: An order was placed for continuous cardiac monitoring. The monitor shows a rate of 88 bpm with sinus rhythm. Laboratory studies: As stated above and show below. Imaging studies: See below. Radiographic imaging was reviewed by myself Consultation(s): I discussed this case with Dr. Yao [facility]. Past Med/Surg History Medical History CAD (coronary artery disease) s/p PCI to LAD due to atretic WHITAKER graft CAD (coronary artery disease) Diabetes Diabetes HTN (hypertension) Hyperlipidemia Hypothyroidism associated with surgical procedure Kidney disease Obesity (BMI 30.0-34.9) Thyroid cancer thyroidectomy in 2001 Thyroidectomy (02/21/13) Surgical History Aortocoronary bypass status 03/2014 : [place] [facility] [place] of cardiac cath History of thyroidectomy Stented coronary artery Occluded Staphenous Vein Graft. 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 Beliefs That Will Affect Care: None marital status: Current Living Situation: Alone current occupation: Retired Feels Safe at Home: Yes Assistive Devices: CPAP Allergies Allergies Allergy/AdvReac Type Severity Reaction Status Date / Time Quinolones Allergy Unknown Unknown Verified 04/19/21 17:22 ofloxacin [From Floxin] AdvReac Severe Hallucinati Verified 04/19/21 17:22 ng Home Meds Home Medications Medication Instructions Recorded Confirmed alprazolam 0.5 mg tablet (Xanax) 0.5 mg PO HS 01/29/18 07/31/22 metoprolol succinate 100 mg 100 mg PO HS 01/29/18 02/24/22 tablet,extended release 24 hr nitroglycerin 0.4 mg sublingual 0.4 mg sublingual DIRECTED PRN 01/29/18 02/24/22 tablet (Nitrostat) Chest Pain icosapent ethyl 1 gram capsule 1 g PO DAILY 12/03/18 02/24/22 (Vascepa) atorvastatin 80 mg tablet (Lipitor) 80 mg PO HS 09/13/19 02/24/22 cyanocobalamin (vitamin B-12) 100 100 mcg PO DAILY 09/13/19 02/24/22 mcg tablet ascorbic acid (vitamin C) 500 mg 500 mg PO 3XWK 04/24/20 02/24/22 tablet (Vitamin C) dexlansoprazole 60 mg 60 mg PO QAM 04/24/20 02/24/22 capsule,biphase delayed release (Dexilant) ferrous sulfate 325 mg (65 mg 325 mg PO 3XWK 04/24/20 02/24/22 iron) tablet levothyroxine 137 mcg tablet 137 mcg PO QAM 04/24/20 07/31/22 (Synthroid) metformin 500 mg tablet,extended 500 mg PO BIDM 04/24/20 07/31/22 release 24 hr ondansetron 4 mg disintegrating 4 mg PO Q8H PRN Nausea 04/24/20 07/31/22 tablet empagliflozin 25 mg tablet 25 mg PO DAILY 12/31/20 02/24/22 (Jardiance) ezetimibe 10 mg tablet 10 mg PO DAILY 12/31/20 07/31/22 isosorbide mononitrate 60 mg 120 mg PO DAILY 12/31/20 02/24/22 tablet,extended release 24 hr apixaban 5 mg tablet (Eliquis) 5 mg PO BID 04/19/21 07/31/22 clopidogrel 75 mg tablet 75 mg PO DAILY 04/19/21 07/31/22 duloxetine 30 mg capsule,delayed 30 mg PO DAILY 04/19/21 02/24/22 release ranolazine 500 mg tablet,extended 500 mg PO BID 04/19/21 02/24/22 release,12 hr duloxetine 60 mg capsule,delayed 60 mg PO QAM 07/31/22 07/31/22 release finasteride 5 mg tablet mg 07/31/22 gabapentin 300 mg capsule 300 mg PO HS 07/31/22 07/31/22 glipizide 2.5 mg tablet, extended 2.5 mg PO QAM 07/31/22 07/31/22 release 24 hr pantoprazole 40 mg tablet,delayed 40 mg PO AMHS 07/31/22 07/31/22 release Previous Rx's Medication Instructions Recorded tamsulosin 0.4 mg capsule 0.4 mg PO DAILY #30 caps 04/26/20 amlodipine 2.5 mg tablet 2.5 mg PO DAILY #30 tabs 01/01/21 metoprolol succinate 25 mg 25 mg PO HS #30 tabs 04/19/21 tablet,extended release 24 hr ondansetron 4 mg disintegrating 4 - 8 mg PO Q8H PRN nausea and 02/24/22 tablet vomiting #14 tabs oxycodone 5 mg tablet 5 mg PO Q6H PRN pain #12 tabs 02/24/22 Results & Data (ED) Vital Signs Vital Signs - 24 hr 07/31/22 17:45 07/31/22 18:12 Temperature 37.0 C Temperature Source Temporal Artery Scan Oral Pulse Rate 88 Respiratory Rate 18 Respiratory Effort / Characteristics Non-Labored Spontaneous Respiratory Depth Normal Respiratory Pattern Regular Blood Pressure 118/83 Blood Pressure Mean 94 Blood Pressure Position Sitting Pulse Oximetry 98 Oxygen Delivery Method Room Air Sepsis Recent Fever Within 48 Hours No Sepsis New/Unexplained Change in Mental Status No Sepsis Action Taken by Nursing No Action Required Home Medications Current Medication List: was personally reviewed by me Laboratory Data Attestation: I reviewed the patient's lab results. 07/31/22 18:05 07/31/22 18:05 Lab Results 07/31/22 07/31/22 07/31/22 Range/Units 18:05 18:05 18:32 WBC 4.63 L (4.8-10.8) K/ul RBC 5.73 (4.70-6.10) M/uL Hgb 16.8 (14.0-18.0) g/dl Hct 49.1 (42.0-52.0) % MCV 85.7 (80.0-100.0) fL MCH 29.3 (25.0-34.0) pg MCHC 34.2 (32.0-36.0) g/dL RDW Std Deviation 40.8 (36.4-46.3) fL RDW Coeff of Cuco 13.2 (11.5-14.5) % Plt Count 185 (130-400) K/uL MPV 9.1 L (9.4-12.4) fL Immature Gran % (Auto) 1.1 % Neut % (Auto) 79.7 % Lymph % (Auto) 4.8 % [place] % (Auto) 14.0 % Eos % (Auto) 0.0 % Baso % (Auto) 0.4 % Neut # (Auto) 3.69 (1.40-6.50) K/uL Lymph # (Auto) 0.22 L (1.2-3.4) K/uL [place] # (Auto) 0.65 H (0.11-0.59) K/uL Eos # (Auto) 0.00 (0-0.50) K/uL Baso # (Auto) 0.02 (0-0.2) K/uL Immature Gran # (Auto) 0.05 (0.01-0.20) K/uL Sodium 137 (136-145) mmol/L Potassium 3.6 (3.5-5.1) mmol/L Chloride 99 (98-107) mmol/L Carbon Dioxide 25 (21-32) mmol/L Anion Gap 13 H (3-11) BUN 15 (6-23) mg/dl Creatinine 1.35 (0.6-1.4) mg/dl Est Cr Clr Drug Dosing 54.6 ml/min Est GFR ( Amer) 63.4 ml/min Est GFR (Non-Af Amer) 54.7 ml/min BUN/Creatinine Ratio 11.1 (10-20) Glucose 126 H (70-99(Fasting)) mg/dl Calcium 9.0 (8.6-10.3) mg/dl Magnesium 1.8 (1.7-2.4) mg/dl Total Bilirubin 1.1 H (0.2-1.0) mg/dl AST 18 (13-39) U/L ALT 15 (7-52) U/L Alkaline Phosphatase 66 (34-104) U/L Troponin I High Sens 9.8 (0-20) pg/ml Total Protein 7.6 (6.0-8.3) gm/dl Albumin 4.4 (3.4-5.0) gm/dl Globulin 3.2 (2.5-4.0) gm/dl Albumin/Globulin Ratio 1.4 (0.9-2) Lipase 26 (11-82) U/L SARS-CoV-2 (PCR) POSITIVE A* (Negative) Influenza Type A (PCR) Negative (Neg) Influenza Type B (PCR) Negative (Neg) RSV (RT-PCR) Negative (Neg) Administered Medications Discontinued Medications Sodium Chloride (Nss 1000ml) 1,000 mls @ 999 mls/hr IV .Q1H1M ANA Stop: 07/31/22 18:45 Last Infusion: 07/31/22 19:14 Dose: 0 mls/hr Documented By: Admin: 07/31/22 18:07 Dose: 999 mls/hr Documented By: AV Promethazine HCl (Phenergan) 12.5 mg in 50.5 mls @ 202 mls/hr IV NOW STA Stop: 07/31/22 19:10 Last Infusion: 07/31/22 19:28 Dose: 0 mls/hr Documented By: Admin: 07/31/22 19:05 Dose: 202 mls/hr Documented By: ASHLEIGH Ondansetron HCl (Ondansetron Inj 2 Mg/Ml 2 Ml Vial) 4 mg IV NOW STA Stop: 07/31/22 17:46 Last Admin: 07/31/22 18:07 Dose: 4 mg Documented By: AV Imaging Data Attestation: I personally reviewed and interpreted this imaging study as follows: My Impression: 1 view chest x-ray and KUB were obtained emergency department. My interpretation is no free air and no definite infiltrate, nonspecific bowel gas pattern, no signs of obstruction, final report below. Radiologist's Impression: Chest X-Ray 07/31/22 17:57 XR chest 1V portable CLINICAL HISTORY: vomiting TECHNIQUE: Single frontal radiograph of the chest was obtained. Comparison: Comparison is made to chest radiograph 04/19/2021 FINDINGS: No lines and tubes are seen. Mild bilateral hilar prominence is unchanged. Stable mild cardiomegaly. The lungs are clear. No evidence of pleural effusion or pneumothorax. IMPRESSION: No acute chest disease. ACT 112: Negative or not required by law. Electronically signed by: Saulo Gilliam M.D. 07/31/2022 6:45 PM KUB X-Ray 07/31/22 17:57 XR KUB/Abdomen 1 view CLINICAL HISTORY: vomiting TECHNIQUE: 1 view of the abdomen was obtained. Comparison: Comparison is made to abdomen radiograph 04/26/2020 FINDINGS: Cholecystomy clips are seen in the right upper quadrant. Degenerative changes are seen in the visualized skeleton. The bowel gas pattern is nonobstructive. A moderate amount of stool is noted within the large bowel. IMPRESSION: Nonobstructive bowel gas pattern. ACT 112: Negative or not required by law. Electronically signed by: Saulo Gilliam M.D. 07/31/2022 6:43 PM Discharge Plan Visit Data Chief Complaint: Nausea Stated Complaint: NAUSEA, VOMITING ED Provider: Manuel Lopez Discharge Problem: Lab test positive for detection of COVID-19 virus, Nausea & vomiting Patient Disposition: Being Evaluated by Hospitalist Forms Stand Alone Forms: My [facility] [address] Prescriptions Prescriptions: No Action cyanocobalamin (vitamin B-12) 100 mcg tablet 100 mcg PO DAILY atorvastatin [Lipitor] 80 mg tablet 80 mg PO HS icosapent ethyl [Vascepa] 1 gram Capsule 1 g PO DAILY alprazolam [Xanax] 0.5 mg Tablet 0.5 mg PO HS metoprolol succinate 100 mg tablet extended release 24 hr 100 mg PO HS nitroglycerin [Nitrostat] 0.4 mg Tablet, Sublingual 0.4 mg Sublingual DIRECTED PRN (Reason: Chest Pain) Rx Instructions: PLACE ONE TABLET UNDER THE TONGUE EVERY 5 MINUTES FOR UP TO 3 DOSES OVER 15 MINUTES IF NEEDED FOR CHEST PAIN levothyroxine [Synthroid] 137 mcg tablet 137 mcg PO QAM ascorbic acid (vitamin C) [Vitamin C] 500 mg Tablet 500 mg PO 3XWK Rx Instructions: TAKES ON MON, WED, & FRI. ferrous sulfate 325 mg (65 mg iron) tablet 325 mg PO 3XWK Rx Instructions: TAKES MON, WED, & FRI. TAKE THIS MEDICATION WITH VITAMIN C ondansetron 4 mg tablet,disintegrating 4 mg PO Q8H PRN (Reason: Nausea) Rx Instructions: ALLOW TABLET TO DISSOLVE ON TONGUE metformin 500 mg tablet extended release 24 hr 500 mg PO BIDM dexlansoprazole [Dexilant] 60 mg capsule,biphase delayed releas 60 mg PO QAM tamsulosin 0.4 mg capsule 0.4 mg PO DAILY Qty: 30 0RF isosorbide mononitrate 60 mg tablet extended release 24 hr 120 mg PO DAILY ezetimibe 10 mg tablet 10 mg PO DAILY Jardiance 25 mg tablet 25 mg PO DAILY amlodipine 2.5 mg tablet 2.5 mg PO DAILY Qty: 30 2RF clopidogrel 75 mg tablet 75 mg PO DAILY duloxetine 30 mg capsule,delayed release(DR/EC) 30 mg PO DAILY ranolazine 500 mg tablet extended release 12 hr 500 mg PO BID Eliquis 5 mg tablet 5 mg PO BID metoprolol succinate 25 mg tablet extended release 24 hr 25 mg PO HS Qty: 30 0RF Rx Instructions: This medication is to be taken along with your 100 mg tablet at bedtime. finasteride 5 mg tablet duloxetine 60 mg capsule,delayed release(DR/EC) 60 mg PO QAM gabapentin 300 mg capsule 300 mg PO HS glipizide 2.5 mg tablet extended release 24hr 2.5 mg PO QAM pantoprazole 40 mg tablet,delayed release (DR/EC) 40 mg PO AMHS ondansetron 4 mg tablet,disintegrating 4 - 8 mg PO Q8H PRN (Reason: nausea and vomiting) Qty: 14 0RF oxycodone 5 mg tablet 5 mg PO Q6H PRN (Reason: pain) Qty: 12 0RF Referrals Referrals: Abundio Melissa MD [Primary Care Provider] -
[2022-07-31 18:37] LABS: Basophils # (auto) 0.02 K/uL (0-0.2); Basophils % (auto) 0.4 %; Hematocrit (blood only) 49.1 % (42.0-52.0); Hemoglobin 16.8 g/dl (14.0-18.0); Immature Granulocytes # (auto) 0.05 K/uL (0.01-0.20); Immature Granulocytes % (auto) 1.1 %; Lymphocytes # (auto) 0.22 K/uL (1.2-3.4); Lymphocytes % (auto) 4.8 %; Mean Corpuscular Hemoglobin 29.3 pg (25.0-34.0); Mean Corpuscular Hgb Conc 34.2 g/dL (32.0-36.0); Mean Corpuscular Volume 85.7 fL (80.0-100.0); Mean Platelet Volume 9.1 fL (9.4-12.4); Monocytes # (auto) 0.65 K/uL (0.11-0.59); Neutrophils # (auto) 3.69 K/uL (1.40-6.50); Neutrophils % (auto) 79.7 %; Platelet Count 185 K/uL (130-400); RDW Coefficient of Variation 13.2 % (11.5-14.5); RDW Standard Deviation 40.8 fL (36.4-46.3); Red Blood Count 5.73 M/uL (4.70-6.10); White Blood Count 4.63 K/ul (4.8-10.8)
--- NOTE | 2022-07-31 18:45 | XRay Report ---
XR KUB/Abdomen 1 view CLINICAL HISTORY: vomiting TECHNIQUE: 1 view of the abdomen was obtained. Comparison: Comparison is made to abdomen radiograph 04/26/2020 FINDINGS: Cholecystomy clips are seen in the right upper quadrant. Degenerative changes are seen in the visuali zed skeleton. The bowel gas pattern is nonobstructive. A moderate amount of stool is noted within the large bowel. IMPRESSION: Nonobstructive bowel gas pattern. ACT 112: Negative or not required by law. Electronically signed by: Saulo Gilliam M.D. 07/31/2022 6:43 PM
--- NOTE | 2022-07-31 18:47 | XRay Report ---
XR chest 1V portable CLINICAL HISTORY: vomiting TECHNIQUE: Single frontal radiograph of the chest was obtained. Comparison: Comparison is made to chest radiograph 04/19/2021 FINDINGS: No lines and tubes are seen. Mild bilateral hilar prominence is unchanged. Stable mild cardiomegaly. The lungs are clear. No evidence of pleural effusion or pneumothorax. IMPRESSION: No acute chest disease. ACT 112: Negative or not required by law. Electronically signed by: Saulo Gilliam M.D. 07/31/2022 6:45 PM
[2022-07-31 18:51] LABS: Albumin Globulin Ratio 1.4 (0.9-2); Albumin Level 4.4 gm/dl (3.4-5.0); BUN Creatinine Ratio 11.1 (10-20); Bilirubin,Total 1.1 mg/dl (0.2-1.0); Creatinine Clr Calc Pharmacy 54.6 ml/min; Est GFR (African American) 63.4 ml/min; Est GFR (Non-African American) 54.7 ml/min; Globulin 3.2 gm/dl (2.5-4.0); Magnesium 1.8 mg/dl (1.7-2.4); Potassium 3.6 mmol/L (3.5-5.1); Total Protein 7.6 gm/dl (6.0-8.3)
[2022-07-31] MEDS ORDERED: PROMETHAZINE 12.5 MG/50.5 ML BAG IV STA (18:56)
[2022-07-31 18:58] LABS: Troponin I High Sensitivity 9.8 pg/ml (0-20)
[2022-07-31 19:19] LABS: Influenza A virus by PCR Negative (Neg); Influenza B virus by PCR Negative (Neg); RSV by PCR Negative (Neg)
[2022-07-31 19:24] LABS: SARS CoV2 RNA(COVID-19) Ceph POSITIVE (Negative)
[2022-07-31] MEDS ORDERED: PROMETHAZINE 12.5 MG/50.5 ML BAG IV ONE (21:50)
[2022-07-31] MEDS ORDERED: PROMETHAZINE HCL 12.5 MG in SODIUM CHLORIDE 0.9% 50 ML IV STA (21:50)
[2022-07-31] MEDS ORDERED: PROMETHAZINE 12.5 MG/50.5 ML NSS IV ONE (21:59)
[2022-07-31] MEDS ORDERED: GLUCAGON FOR INJ 1 MG VIAL SQ PRN (23:58)
[2022-07-31] MEDS ORDERED: DEXTROSE 50% 50 ML SYRINGE IV PRN (23:58)
[2022-07-31] MEDS ORDERED: MECLIZINE HCL 25 MG TAB PO PRN (23:58)
[2022-07-31] MEDS ORDERED: CARBOHYDRATES FOR HYPOGLYCEMIA PO PRN (23:58)
[2022-07-31] MEDS ORDERED: traMADol HCL 50 MG TABLET PO PRN (23:58)
[2022-07-31] MEDS ORDERED: GLUCOSE 40% GEL 15 GM TUBE PO PRN (23:58)
[2022-07-31] MEDS ORDERED: ONDANSETRON INJ 2 MG/ML 2 ML VIAL IV PRN (23:58)
[2022-07-31] MEDS ORDERED: NITROGLYCERIN SL 0.4 MG/TAB TAB SL PRN (23:58)
[2022-07-31] MEDS ORDERED: GLUCOSE 10 TAB/TUBE PO PRN (23:58)
[2022-07-31] MEDS ORDERED: oxyCODONE HCL IR 5 MG TAB (IMMEDIATE RELEASE) PO PRN (23:58)
[2022-08-01] MEDS: APIXABAN 5 MG TABLET PO SCH ×3 (00:37→20:53)
[2022-08-01] MEDS: SODIUM CHLORIDE 0.9% 1000ML 1,000 ML IV SCH ×4 (00:38→18:08)
[2022-08-01] MEDS: dexAMETHasone 6 MG in SYRINGE 0 ML IV SCH ×2 (00:38→20:54)
--- NOTE | 2022-08-01 01:14 | History and Physical Report ---
DATE OF ADMISSION: 07/31/2022. CHIEF COMPLAINT: Nausea, vomiting, COVID. 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 Denies any cough. Has some runny nose and sore throat. Denies any headache. No blurred visions, no earache, no difficulty swallowing. No chest pain, no shortness of breath, no abdominal pain. Normal bowel and bladder movements. No blood in the stools or black stools. No hematuria, no swelling in the legs. Hemodynamically stable. ALLERGIES: QUINOLONES, OFLOXACIN. PAST MEDICAL HISTORY: As mentioned above. PAST SURGICAL HISTORY: Bronchoscopy with EBUS, CABG, cardiac catheterization with stent placement, colonoscopy, laparoscopic cholecystectomy, sacroiliac joint injection and thyroidectomy. MEDICATIONS: The patient is on Tylenol 1000 mg p.o. q.6 hours p.r.n., Xanax 0.5 mg p.o. at bedtime, Eliquis 5 mg p.o. b.i.d., vitamin C 500 mg p.o. daily, atorvastatin 80 mg p.o. at bedtime, Plavix 75 mg p.o. daily, vitamin B12 200 mcg p.o. daily, Trulicity 1.5 mg subcutaneous weekly, duloxetine 60 mg p.o. a.m., ezetimibe 10 mg p.o. daily, ferrous sulfate 325 mg p.o. 3 times a week, finasteride 5 mg p.o. a.m., gabapentin 300 mg p.o. at bedtime, Vascepa 2 g p.o. b.i.d., levothyroxine 137 mcg p.o. a.m., meclizine 12.5 mg p.o. q.6 hours p.r.n., metformin 500 mg p.o. b.i.d., metoprolol succinate 500 mg p.o. b.i.d., Nitrostat 0.4 mg sublingual p.r.n., Zofran 4 mg p.o. q.8 hours p.r.n., oxycodone 5 mg p.o. q.6 hours p.r.n., Protonix 40 mg p.o. b.i.d., prednisone 5 mg p.o. daily, Flomax 0.4 mg p.o. daily, tramadol 50 mg p.o. daily p.r.n. FAMILY HISTORY: Significant for brother had COVID, at the age of 59; sister has Crohn's disease; father has diabetes, heart disorder, [place] at age 40s; mother had diabetes, heart disorder, at age of 66; brother has ulcerative colitis. SOCIAL HISTORY: . Passive smoking. No alcohol, no drug use. REVIEW OF SYSTEMS: As per HPI. Rest of review of systems is negative. PHYSICAL EXAMINATION: GENERAL: The patient is of moderate build, not in acute distress. VITAL SIGNS: Temperature 37, pulse 82, respiratory rate 20, blood pressure 120/73, oxygen 92% on room air. HEENT: Pupils equal, round and reactive to light. Oral mucosa moist. NECK: Supple. CARDIOVASCULAR: S1 and S2 heard. Regular rate and rhythm. No murmur, no gallop. RESPIRATORY SYSTEM: Normal AP diameter. No accessory muscle use. No wheezing or crackles. ABDOMEN: Soft, bowel sounds present, nontender, no distention. CENTRAL NERVOUS SYSTEM: Alert and oriented. Speech is clear. No facial droop. Obeys simple commands. Moves extremities. EXTREMITIES: No edema, no erythema. LABORATORY DATA: WBC 4.6, hemoglobin 16.8, hematocrit 49.1, platelets 185. Sodium 137, potassium 3.6, chloride 99, CO2 of 25, BUN 15, creatinine 1.3, serum glucose 126, calcium 9, magnesium 1.8, total bilirubin 1.1, AST 18, ALT 15, alkaline phosphatase 66. Troponin I high sensitivity 9.8. Lipase 26. SARS-CoV-2 PCR positive. Influenza A and B PCR negative. RSV PCR negative. KUB x-ray: No acute findings. Chest x-ray: No acute chest disease. EKG: Normal sinus rhythm, rate of 75, nonspecific T-wave abnormalities, no acute ST changes seen. ASSESSMENT AND PLAN: This is a 66-year-old male who presents with nausea, vomiting and diagnosis of COVID. 1. COVID-19 diagnosis. The patient has some runny nose and sore throat and nausea, vomiting for 2-3 days. He is hemodynamically stable. The patient is COVID vaccinated and also boosted twice, he is saturating okay on room air. The patient takes prednisone 5 mg for sarcoidosis at home. We will place him on Decadron for now and monitor. COVID precautions. 2. Nausea, vomiting. Since the last 2 to 3 days, he is not able to eat or keep anything down. We will keep him on IV fluids, IV antiemetics. If he is not able to take his medications orally, we will change to IV medications or shots, and closely monitor. 3. History of coronary artery disease, status post coronary artery bypass grafting, status post stents. Continue his home medications of beta juana, Plavix, statin and ezetimibe. 4. Paroxysmal atrial fibrillation. Continue metoprolol succinate and Eliquis. If he is not able to take orally, we will give Lovenox shots and IV Lopressor. We will monitor. 5. History of diabetes. Hold his home medication. Place him on insulin sliding scale. Follow the blood sugars. 6. History of sarcoidosis, on prednisone [address] him on IV Decadron, hold prednisone for now. 7. Gastroesophageal reflux disease. Continue Protonix. 8. Benign prostatic hypertrophy. Continue Flomax and finasteride. Monitor for any urinary retention. 9. Depression. Continue duloxetine. 10. Hyperlipidemia, on statin and ezetimibe. 11. Hypothyroidism, on Synthroid. 12. Obstructive sleep apnea, on CPAP at bedtime. 13. Chronic kidney disease stage III. Presents with creatinine of 1.3. We will follow the laboratories. 14. History of hypercalcemia from sarcoidosis. His calcium is okay. We will monitor the laboratories. 15. Deep venous thrombosis prophylaxis, on Eliquis. DISPOSITION: Closely monitor in the tele floor. Level 1, full code. Expect to discharge home and follow with family doctor. Job ID: [id number] [facility]
[2022-08-01] MEDS ORDERED: ACETAMINOPHEN 1,000 MG/100 ML VIAL IV PRN (02:21)
[2022-08-01] MEDS: LEVOTHYROXINE SODIUM 137 MCG TABLET PO SCH (05:40)
[2022-08-01 06:07] LABS: Appearance Urine Clear (Clear); Bacteria Urine Automated Negative (Negative); Bilirubin Urine Negative (Negative); Blood Urine Negative (Negative); Color Urine Yellow; Glucose Urine UA Negative (Negative); Ketones Urine 1+ (Negative); Leukocyte Esterase Urine Negative (Negative); Nitrite Urine Negative (Negative); Protein Urine 1+ (Negative); RBC Urine Automated 0-4 /hpf (0-4); Specific Gravity Urine 1.016 (1.000-1.030); Urobilinogen Urine Negative (Negative)
[2022-08-01 06:57] LABS: Basophils # (auto) 0.01 K/uL (0-0.2); Basophils % (auto) 0.2 %; Hematocrit (blood only) 49.3 % (42.0-52.0); Hemoglobin 16.7 g/dl (14.0-18.0); Immature Granulocytes # (auto) 0.02 K/uL (0.01-0.20); Immature Granulocytes % (auto) 0.4 %; Lymphocytes # (auto) 0.21 K/uL (1.2-3.4); Lymphocytes % (auto) 4.7 %; Mean Corpuscular Hemoglobin 30.3 pg (25.0-34.0); Mean Corpuscular Hgb Conc 33.9 g/dL (32.0-36.0); Mean Corpuscular Volume 89.5 fL (80.0-100.0); Mean Platelet Volume 9.4 fL (9.4-12.4); Monocytes # (auto) 0.21 K/uL (0.11-0.59); Monocytes % (auto) 4.7 %; Neutrophils # (auto) 4.03 K/uL (1.40-6.50); Platelet Count 172 K/uL (130-400); RDW Coefficient of Variation 13.2 % (11.5-14.5); RDW Standard Deviation 43.2 fL (36.4-46.3); Red Blood Count 5.51 M/uL (4.70-6.10); White Blood Count 4.48 K/ul (4.8-10.8)
[2022-08-01 07:08] LABS: BUN Creatinine Ratio 12.2 (10-20); Calcium 8.1 mg/dl (8.6-10.3); Creatinine Clr Calc Pharmacy 56.2 ml/min; Est GFR (African American) 65.8 ml/min; Est GFR (Non-African American) 56.7 ml/min; Magnesium 1.9 mg/dl (1.7-2.4); Phosphorus 3.9 mg/dl (2.5-4.9); Potassium 4.2 mmol/L (3.5-5.1)
[2022-08-01 07:15] LABS: Troponin I High Sensitivity 11.4 pg/ml (0-20)
[2022-08-01] MEDS: DULoxetine HCL 60 MG CAP PO SCH (08:05)
[2022-08-01] MEDS: CLOPIDOGREL BISULFATE 75 MG TAB PO SCH (08:05)
[2022-08-01] MEDS: FINASTERIDE 5 MG TAB PO SCH (08:05)
[2022-08-01] MEDS: PANTOprazole 40 MG TAB PO SCH ×2 (08:05→20:52)
[2022-08-01] MEDS: ASCORBIC ACID 500 MG TAB PO SCH (08:06)
[2022-08-01] MEDS: METOPROLOL SUCC 50MG EXT REL TAB PO SCH ×2 (08:06→20:53)
[2022-08-01] MEDS: TAMSULOSIN HCL 0.4 MG CAP PO SCH (08:06)
[2022-08-01] MEDS: EZETIMIBE 10 MG TABLET PO SCH (08:06)
[2022-08-01] MEDS: CYANOCOBALAMIN (B-12) 100 MCG TABLET PO SCH (08:06)
--- NOTE | 2022-08-01 08:11 | Hospitalist Progress Note ---
Date of Service August 01, 2022 Assessment & Plan (1) Nausea & vomiting: (2) Lab test positive for detection of COVID-19 virus: Plan: This is a 66-year-old male who presents with nausea, vomiting and diagnosis of COVID 19. 1. COVID-19 diagnosis. The patient has some runny nose and sore throat and nausea, vomiting for 2-3 days. He is hemodynamically stable. The patient is COVID vaccinated and also boosted twice, he is saturating okay on room air. The patient takes prednisone 5 mg for sarcoidosis at home. We will place him on Decadron for now and monitor. COVID precautions. 2. Nausea, vomiting. Since the last 2 to 3 days, he is not able to eat or keep anything down. We will keep him on IV fluids, IV antiemetics. If he is not able to take his medications orally, we will change to IV medications or shots, and closely monitor. Pt able to take PO meds and have breakfast, now after lunch having nausea cont. to closely monitor 3. History of coronary artery disease, status post coronary artery bypass grafting, status post stents. Continue his home medications of beta juana, Plavix, statin and ezetimibe. 4. Paroxysmal atrial fibrillation. Continue metoprolol succinate and Eliquis. If he is not able to take orally, we will give Lovenox shots and IV Lopressor. We will monitor. For now, able to take meds this AM 5. History of diabetes. Hold his home medication. Place him on insulin sliding scale. Follow the blood sugars. 6. History of sarcoidosis, on prednisone [address] him on IV Decadron, hold prednisone for now. 7. Gastroesophageal reflux disease. Continue Protonix. 8. Benign prostatic hypertrophy. Continue Flomax and finasteride. Monitor for any urinary retention. 9. Depression. Continue duloxetine. 10. Hyperlipidemia, on statin and ezetimibe. 11. Hypothyroidism, on Synthroid. 12. Obstructive sleep apnea, on CPAP at bedtime. 13. Chronic kidney disease stage III. Presents with creatinine of 1.3. We will follow the laboratories. 14. History of hypercalcemia from sarcoidosis. His calcium is okay. We will monitor the laboratories. DVT ppx, on Eliquis. DISPOSITION:tele floor. Level 1, full code. Expect to discharge home and follow with family doctor. Admission and Anticipated Discharge Date Admission Date: July 31, 2022 Subjective Pt seen in follow up of nausea/vomiting, + covid 19 Currently laying in bed, in no acute distress Breathing comfortably on room air Not feeling well, especially after lunch, developed again severe nausea He was able to eat breakfast and he was able to take his a.m. meds No fevers chills chest pain, no shortness of breath Reports having diarrhea since Review of Systems Review of Systems: All systems reviewed & are unremarkable except as noted in Subjective Physical Exam Physical Exam: GENERAL: The patient is of moderate build, not in acute distress. HEENT: NC/AT. Pupils equal, round and reactive to light. Oral mucosa moist. NECK: Supple. CARDIOVASCULAR: S1 and S2 heard. Regular rate and rhythm. No murmur, no gallop. RESPIRATORY: Normal AP diameter. No accessory muscle use. No wheezing or crackles. ABDOMEN: Soft, bowel sounds present, nontender, no distention. NEURO: Alert and oriented. Speech is clear. No facial droop. Obeys simple commands. Moves extremities. EXTREMITIES: No edema, no erythema. Results & Data Results & Data Vital Signs (Past 12 Hours) Vital Signs Temp Pulse Pulse Resp BP BP Pulse Ox 08/01/22 07:42 37.0 C 86 18 138/94 97 08/01/22 04:05 95 08/01/22 03:59 37.2 C 91 H 18 129/82 91 08/01/22 00:00 85 07/31/22 23:30 36.8 C 104 H 18 144/85 H 94 07/31/22 22:09 80 07/31/22 23:00 93 H 25 H 125/83 93 07/31/22 22:30 87 16 86 L 07/31/22 22:00 87 07/31/22 21:55 73 07/31/22 23:22 87 18 141/86 H 34 L 07/31/22 21:53 82 20 120/73 92 O2 Del Method O2 Flow Rate 08/01/22 07:42 Room Air 08/01/22 04:05 Nasal Cannula 1 08/01/22 03:59 Room Air 08/01/22 00:00 07/31/22 23:30 Room Air 07/31/22 22:09 07/31/22 23:00 07/31/22 22:30 07/31/22 22:00 07/31/22 21:55 07/31/22 23:22 Room Air 07/31/22 21:53 Room Air Laboratory Results 08/01/22 08/01/22 08/01/22 Range/Units 07:33 05:30 05:30 WBC (4.8-10.8) K/ul RBC (4.70-6.10) M/uL Hgb (14.0-18.0) g/dl Hct (42.0-52.0) % MCV (80.0-100.0) fL MCH (25.0-34.0) pg MCHC (32.0-36.0) g/dL RDW Std Deviation (36.4-46.3) fL RDW Coeff of Cuco (11.5-14.5) % Plt Count (130-400) K/uL MPV (9.4-12.4) fL Immature Gran % (Auto) % Neut % (Auto) % Lymph % (Auto) % Greer % (Auto) % Eos % (Auto) % Baso % (Auto) % Neut # (Auto) (1.40-6.50) K/uL Lymph # (Auto) (1.2-3.4) K/uL Greer # (Auto) (0.11-0.59) K/uL Eos # (Auto) (0-0.50) K/uL Baso # (Auto) (0-0.2) K/uL Immature Gran # (Auto) (0.01-0.20) K/uL Sodium (136-145) mmol/L Potassium (3.5-5.1) mmol/L Chloride (98-107) mmol/L Carbon Dioxide (21-32) mmol/L Anion Gap (3-11) BUN (6-23) mg/dl Creatinine (0.6-1.4) mg/dl Est Cr Clr Drug Dosing ml/min Est GFR ( Amer) ml/min Est GFR (Non-Af Amer) ml/min BUN/Creatinine Ratio (10-20) Glucose (70-99(Fasting)) mg/dl POC Glucose 189 H (70-99) mg/dl Estimat Average Glucose Pending Hemoglobin A1c Pending Calcium (8.6-10.3) mg/dl Phosphorus (2.5-4.9) mg/dl Magnesium (1.7-2.4) mg/dl Total Bilirubin (0.2-1.0) mg/dl AST (13-39) U/L ALT (7-52) U/L Alkaline Phosphatase (34-104) U/L Troponin I High Sens (0-20) pg/ml Total Protein (6.0-8.3) gm/dl Albumin (3.4-5.0) gm/dl Globulin (2.5-4.0) gm/dl Albumin/Globulin Ratio (0.9-2) Lipase (11-82) U/L Urine Color Yellow Urine Appearance Clear (Clear) Urine pH 6.0 (4.5-7.5) Ur Specific Swink 1.016 (1.000-1.030) Urine Protein 1+ H (Negative) Urine Glucose (UA) Negative (Negative) Urine Ketones 1+ H (Negative) Urine Blood Negative (Negative) Urine Nitrite Negative (Negative) Urine Bilirubin Negative (Negative) Urine Urobilinogen Negative (Negative) Ur Leukocyte Esterase Negative (Negative) Urine WBC (Auto) 1-5 (0-5) /hpf Urine RBC (Auto) 0-4 (0-4) /hpf U Hyaline Cast (Auto) 1-5 (0-5) /lpf U Epithel Cells (Auto) 5-10 H (0-5) /lpf Urine Bacteria (Auto) Negative (Negative) SARS-CoV-2 (PCR) (Negative) Influenza Type A (PCR) (Neg) Influenza Type B (PCR) (Neg) RSV (RT-PCR) (Neg) 08/01/22 08/01/22 07/31/22 Range/Units 05:30 05:30 18:32 WBC 4.48 L (4.8-10.8) K/ul RBC 5.51 (4.70-6.10) M/uL Hgb 16.7 (14.0-18.0) g/dl Hct 49.3 (42.0-52.0) % MCV 89.5 (80.0-100.0) fL MCH 30.3 (25.0-34.0) pg MCHC 33.9 (32.0-36.0) g/dL RDW Std Deviation 43.2 (36.4-46.3) fL RDW Coeff of Cuco 13.2 (11.5-14.5) % Plt Count 172 (130-400) K/uL MPV 9.4 (9.4-12.4) fL Immature Gran % (Auto) 0.4 % Neut % (Auto) 90.0 % Lymph % (Auto) 4.7 % Greer % (Auto) 4.7 % Eos % (Auto) 0.0 % Baso % (Auto) 0.2 % Neut # (Auto) 4.03 (1.40-6.50) K/uL Lymph # (Auto) 0.21 L (1.2-3.4) K/uL Greer # (Auto) 0.21 (0.11-0.59) K/uL Eos # (Auto) 0.00 (0-0.50) K/uL Baso # (Auto) 0.01 (0-0.2) K/uL Immature Gran # (Auto) 0.02 (0.01-0.20) K/uL Sodium 139 (136-145) mmol/L Potassium 4.2 (3.5-5.1) mmol/L Chloride 104 (98-107) mmol/L Carbon Dioxide 25 (21-32) mmol/L Anion Gap 10 (3-11) BUN 16 (6-23) mg/dl Creatinine 1.31 (0.6-1.4) mg/dl Est Cr Clr Drug Dosing 56.2 ml/min Est GFR ( Amer) 65.8 ml/min Est GFR (Non-Af Amer) 56.7 ml/min BUN/Creatinine Ratio 12.2 (10-20) Glucose 159 H (70-99(Fasting)) mg/dl POC Glucose (70-99) mg/dl Estimat Average Glucose Hemoglobin A1c Calcium 8.1 L (8.6-10.3) mg/dl Phosphorus 3.9 (2.5-4.9) mg/dl Magnesium 1.9 (1.7-2.4) mg/dl Total Bilirubin (0.2-1.0) mg/dl AST (13-39) U/L ALT (7-52) U/L Alkaline Phosphatase (34-104) U/L Troponin I High Sens 11.4 (0-20) pg/ml Total Protein (6.0-8.3) gm/dl Albumin (3.4-5.0) gm/dl Globulin (2.5-4.0) gm/dl Albumin/Globulin Ratio (0.9-2) Lipase (11-82) U/L Urine Color Urine Appearance (Clear) Urine pH (4.5-7.5) Ur Specific Swink (1.000-1.030) Urine Protein (Negative) Urine Glucose (UA) (Negative) Urine Ketones (Negative) Urine Blood (Negative) Urine Nitrite (Negative) Urine Bilirubin (Negative) Urine Urobilinogen (Negative) Ur Leukocyte Esterase (Negative) Urine WBC (Auto) (0-5) /hpf Urine RBC (Auto) (0-4) /hpf U Hyaline Cast (Auto) (0-5) /lpf U Epithel Cells (Auto) (0-5) /lpf Urine Bacteria (Auto) (Negative) SARS-CoV-2 (PCR) POSITIVE A* (Negative) Influenza Type A (PCR) Negative (Neg) Influenza Type B (PCR) Negative (Neg) RSV (RT-PCR) Negative (Neg) 07/31/22 07/31/22 Range/Units 18:05 18:05 WBC 4.63 L (4.8-10.8) K/ul RBC 5.73 (4.70-6.10) M/uL Hgb 16.8 (14.0-18.0) g/dl Hct 49.1 (42.0-52.0) % MCV 85.7 (80.0-100.0) fL MCH 29.3 (25.0-34.0) pg MCHC 34.2 (32.0-36.0) g/dL RDW Std Deviation 40.8 (36.4-46.3) fL RDW Coeff of Cuco 13.2 (11.5-14.5) % Plt Count 185 (130-400) K/uL MPV 9.1 L (9.4-12.4) fL Immature Gran % (Auto) 1.1 % Neut % (Auto) 79.7 % Lymph % (Auto) 4.8 % Greer % (Auto) 14.0 % Eos % (Auto) 0.0 % Baso % (Auto) 0.4 % Neut # (Auto) 3.69 (1.40-6.50) K/uL Lymph # (Auto) 0.22 L (1.2-3.4) K/uL Greer # (Auto) 0.65 H (0.11-0.59) K/uL Eos # (Auto) 0.00 (0-0.50) K/uL Baso # (Auto) 0.02 (0-0.2) K/uL Immature Gran # (Auto) 0.05 (0.01-0.20) K/uL Sodium 137 (136-145) mmol/L Potassium 3.6 (3.5-5.1) mmol/L Chloride 99 (98-107) mmol/L Carbon Dioxide 25 (21-32) mmol/L Anion Gap 13 H (3-11) BUN 15 (6-23) mg/dl Creatinine 1.35 (0.6-1.4) mg/dl Est Cr Clr Drug Dosing 54.6 ml/min Est GFR ( Amer) 63.4 ml/min Est GFR (Non-Af Amer) 54.7 ml/min BUN/Creatinine Ratio 11.1 (10-20) Glucose 126 H (70-99(Fasting)) mg/dl POC Glucose (70-99) mg/dl Estimat Average Glucose Hemoglobin A1c Calcium 9.0 (8.6-10.3) mg/dl Phosphorus (2.5-4.9) mg/dl Magnesium 1.8 (1.7-2.4) mg/dl Total Bilirubin 1.1 H (0.2-1.0) mg/dl AST 18 (13-39) U/L ALT 15 (7-52) U/L Alkaline Phosphatase 66 (34-104) U/L Troponin I High Sens 9.8 (0-20) pg/ml Total Protein 7.6 (6.0-8.3) gm/dl Albumin 4.4 (3.4-5.0) gm/dl Globulin 3.2 (2.5-4.0) gm/dl Albumin/Globulin Ratio 1.4 (0.9-2) Lipase 26 (11-82) U/L Urine Color Urine Appearance (Clear) Urine pH (4.5-7.5) Ur Specific Swink (1.000-1.030) Urine Protein (Negative) Urine Glucose (UA) (Negative) Urine Ketones (Negative) Urine Blood (Negative) Urine Nitrite (Negative) Urine Bilirubin (Negative) Urine Urobilinogen (Negative) Ur Leukocyte Esterase (Negative) Urine WBC (Auto) (0-5) /hpf Urine RBC (Auto) (0-4) /hpf U Hyaline Cast (Auto) (0-5) /lpf U Epithel Cells (Auto) (0-5) /lpf Urine Bacteria (Auto) (Negative) SARS-CoV-2 (PCR) (Negative) Influenza Type A (PCR) (Neg) Influenza Type B (PCR) (Neg) RSV (RT-PCR) (Neg) Medications Administered Current Inpatient Medications Alprazolam (Alprazolam 0.5 Mg Tablet) 0.5 mg PO HS [facility] Stop: 08/31/22 20:59 Apixaban (Apixaban 5 Mg Tablet) 5 mg PO BID ANA Stop: 08/30/22 23:57 Last Admin: 08/01/22 08:07 Dose: 5 mg Ascorbic Acid (Ascorbic Acid 500 Mg Tab) 500 mg PO DAILY ANA Stop: 08/31/22 08:59 Last Admin: 08/01/22 08:06 Dose: 500 mg Atorvastatin Calcium (Atorvastatin 40 Mg Tab) 80 mg PO HS ANA Stop: 08/31/22 20:59 Clopidogrel Bisulfate (Clopidogrel Bisulfate 75 Mg Tab) 75 mg PO DAILY [facility] Stop: 08/31/22 08:59 Last Admin: 08/01/22 08:05 Dose: 75 mg Cyanocobalamin (Cyanocobalamin (B-12) 100 Mcg Tablet) 200 mcg PO QAM ANA Stop: 08/31/22 08:59 Last Admin: 08/01/22 08:06 Dose: 200 mcg Dextrose (Dextrose 50% 50 Ml Syringe) 25 - 50 ml IV UD PRN; Protocol PRN Reason: Hypoglycemia Protocol Stop: 08/30/22 23:57 Duloxetine HCl (Duloxetine Hcl 60 Mg Cap) 60 mg PO QAM ANA Stop: 08/31/22 08:59 Last Admin: 08/01/22 08:05 Dose: 60 mg Ezetimibe (Ezetimibe 10 Mg Tablet) 10 mg PO DAILY ANA Stop: 08/31/22 08:59 Last Admin: 08/01/22 08:06 Dose: 10 mg Finasteride (Finasteride 5 Mg Tab) 5 mg PO QAM ANA Stop: 08/31/22 08:59 Last Admin: 08/01/22 08:05 Dose: 5 mg Gabapentin (Gabapentin 300 Mg Cap) 300 mg PO HS [facility] Stop: 08/31/22 20:59 Glucagon (Glucagon For Inj 1 Mg Vial) 1 mg SQ UD PRN; Protocol PRN Reason: Hypoglycemia Protocol Stop: 08/30/22 23:57 Glucose (Glucose 10 Tab/Tube) 4 - 8 tab PO UD PRN; Protocol PRN Reason: Hypoglycemia Treatment Stop: 08/30/22 23:57 Glucose (Glucose 40% Gel 15 Gm Tube) 15 - 30 gm PO UD PRN; Protocol PRN Reason: Hypoglycemia Protocol Stop: 08/30/22 23:57 Sodium Chloride (Nss 1000ml) 1,000 mls @ 125 mls/hr IV .Q8H [facility] Stop: 08/30/22 23:57 Last Admin: 08/01/22 00:38 Dose: 125 mls/hr Dexamethasone 6 mg/ Syringe 1.5 mls @ 1 mls/min IV DAILY@2200 [facility] Stop: 08/30/22 23:57 Last Admin: 08/01/22 00:38 Dose: 1 mls/min Acetaminophen (Ofirmev) 1,000 mg in 100 mls @ 400 mls/hr IV Q8H PRN PRN Reason: Pain or Fever Stop: 08/04/22 02:20 Insulin Aspart (Insulin Aspart Per Unit Charge) 0 units SC ACHS [facility] Stop: 08/31/22 07:29 Levothyroxine Sodium (Levothyroxine Sodium 137 Mcg Tablet) 137 mcg PO DAILYBB [facility] Stop: 08/31/22 06:29 Last Admin: 08/01/22 05:40 Dose: 137 mcg Meclizine HCl (Meclizine Hcl 25 Mg Tab) 12.5 - 25 mg PO Q6 PRN PRN Reason: Dizziness Stop: 08/30/22 23:57 Metoprolol Succinate (Metoprolol Succ 50mg Ext Rel Tab) 50 mg PO [facility] Stop: 08/31/22 08:59 Last Admin: 08/01/22 08:06 Dose: 50 mg Miscellaneous (Icosapent Ethyl [Vascepa] - Order Awaiting Action) 1 each N/A QS [facility] Stop: 08/31/22 07:59 Miscellaneous (Carbohydrates For Hypoglycemia ) 15 - 30 gm PO UD PRN PRN Reason: Hypoglycemia Protocol Stop: 08/30/22 23:57 Nitroglycerin (Nitroglycerin Sl 0.4 Mg/Tab Tab) 0.4 mg SL UD PRN PRN Reason: Chest Pain Stop: 08/30/22 23:57 Ondansetron HCl (Ondansetron Inj 2 Mg/Ml 2 Ml Vial) 4 mg IV Q6H PRN PRN Reason: Nausea Stop: 08/30/22 23:57 Oxycodone HCl (Oxycodone Hcl Ir 5 Mg Tab (Immediate Release)) 5 mg PO Q6H PRN PRN Reason: pain Stop: 08/14/22 23:57 Pantoprazole Sodium (Pantoprazole 40 Mg Tab) 40 mg PO [facility] Stop: 08/31/22 08:59 Last Admin: 08/01/22 08:05 Dose: 40 mg Tamsulosin HCl (Tamsulosin Hcl 0.4 Mg Cap) 0.4 mg PO DAILY ANA Stop: 08/31/22 08:59 Last Admin: 08/01/22 08:06 Dose: 0.4 mg Tramadol HCl (Tramadol Hcl 50 Mg Tablet) 50 mg PO DAILY PRN PRN Reason: mod-severe pain Stop: 08/30/22 23:57 (1) Nausea & vomiting Vomiting type: unspecified Qualified Code(s): R11.2 - Nausea with vomiting, unspecified
[2022-08-01] MEDS: INSULIN ASPART PER UNIT CHARGE SC SCH ×4 (08:16→20:40)
--- NOTE | 2022-08-01 08:40 | Electrocardiogram Report ---
Test Reason : Blood Pressure : / mmHG Vent. 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
[2022-08-01] MEDS ORDERED: MECLIZINE HCL 25 MG TAB PO PRN (09:00)
[2022-08-01] MEDS: ADVANCED PROBIOTIC 1250 MG CAPSULE PO SCH (16:34)
[2022-08-01] MEDS ORDERED: GABAPENTIN 300 MG CAP PO SCH (21:00)
[2022-08-01] MEDS ORDERED: ALPRAZolam 0.5 MG TABLET PO SCH (21:00)
[2022-08-01] MEDS ORDERED: ATORVASTATIN 40 MG TAB PO SCH (21:00)
[2022-08-02] MEDS: SODIUM CHLORIDE 0.9% 1000ML 1,000 ML IV SCH ×2 (01:50→09:57)
[2022-08-02] MEDS: LEVOTHYROXINE SODIUM 137 MCG TABLET PO SCH (05:48)
[2022-08-02 06:29] LABS: BUN Creatinine Ratio 14.3 (10-20); Calcium 7.2 mg/dl (8.6-10.3); Creatinine Clr Calc Pharmacy 75.1 ml/min; Est GFR (African American) 93.4 ml/min; Est GFR (Non-African American) 80.6 ml/min; Magnesium 1.8 mg/dl (1.7-2.4)
[2022-08-02 07:55] LABS: Estimated Average Glucose 151 mg/dl; Hemoglobin A1C 6.9 % (4.5-5.6)
[2022-08-02] MEDS: METOPROLOL SUCC 50MG EXT REL TAB PO SCH (08:57)
[2022-08-02] MEDS: CYANOCOBALAMIN (B-12) 100 MCG TABLET PO SCH (08:57)
[2022-08-02] MEDS: EZETIMIBE 10 MG TABLET PO SCH (08:57)
[2022-08-02] MEDS: ADVANCED PROBIOTIC 1250 MG CAPSULE PO SCH (08:57)
[2022-08-02] MEDS: DULoxetine HCL 60 MG CAP PO SCH (08:58)
[2022-08-02] MEDS: CLOPIDOGREL BISULFATE 75 MG TAB PO SCH (08:58)
[2022-08-02] MEDS: PANTOprazole 40 MG TAB PO SCH (08:58)
[2022-08-02] MEDS: APIXABAN 5 MG TABLET PO SCH (08:58)
[2022-08-02] MEDS: TAMSULOSIN HCL 0.4 MG CAP PO SCH (08:58)
[2022-08-02] MEDS: ASCORBIC ACID 500 MG TAB PO SCH (08:58)
[2022-08-02] MEDS: FINASTERIDE 5 MG TAB PO SCH (08:58)
[2022-08-02] MEDS: INSULIN ASPART PER UNIT CHARGE SC SCH ×2 (09:07→12:04)
--- NOTE | 2022-08-02 12:36 | Discharge Summary ---
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 Denies any cough. Has some runny nose and sore throat. Denies any headache. No blurred visions, no earache, no difficulty swallowing. No chest pain, no shortness of breath, no abdominal pain. Normal bowel and bladder movements. No blood in the stools or black stools. No hematuria, no swelling in the legs. Hemodynamically stable. Admission Exam Per Admitting Provider GENERAL: The patient is of moderate build, not in acute distress. VITAL SIGNS: Temperature 37, pulse 82, respiratory rate 20, blood pressure 120/73, oxygen 92% on room air. HEENT: Pupils equal, round and reactive to light. Oral mucosa moist. NECK: Supple. CARDIOVASCULAR: S1 and S2 heard. Regular rate and rhythm. No murmur, no gallop. RESPIRATORY SYSTEM: Normal AP diameter. No accessory muscle use. No wheezing or crackles. ABDOMEN: Soft, bowel sounds present, nontender, no distention. CENTRAL NERVOUS SYSTEM: Alert and oriented. Speech is clear. No facial droop. Obeys simple commands. Moves extremities. EXTREMITIES: No edema, no erythema. Principal Diagnosis Nausea, vomiting, in the setting of COVID-19 Discharge Exam GENERAL: The patient is of moderate build, not in acute distress. HEENT: NC/AT. Pupils equal, round and reactive to light. Oral mucosa moist. NECK: Supple. CARDIOVASCULAR: S1 and S2 heard. Regular rate and rhythm. No murmur, no gallop. RESPIRATORY: Normal AP diameter. No accessory muscle use. No wheezing or crackles. ABDOMEN: Soft, bowel sounds present, nontender, no distention. NEURO: Alert and oriented. Speech is clear. No facial droop. Obeys simple commands. Moves extremities. EXTREMITIES: No edema, no erythema. Discharge Data Allergies Allergy/AdvReac Type Severity Reaction Status Date / Time Quinolones Allergy Unknown Unknown Verified 07/31/22 21:25 ofloxacin [From Floxin] AdvReac Severe Hallucinati Verified 07/31/22 21:25 ng Consultations 07/31/22 20:34 ED Decision to Admit Stat Hospital Course (1) Nausea & vomiting: (2) Lab test positive for detection of COVID-19 virus: This is a 66-year-old male who presents with nausea, vomiting and diagnosis of COVID 19. 1. COVID-19 diagnosis. The patient has some runny nose and sore throat and nausea, vomiting for 2-3 days. He is hemodynamically stable. The patient is COVID vaccinated and also boosted twice, he is saturating okay on room air. The patient takes prednisone 5 mg for sarcoidosis at home. On Decadron while inpt. COVID precautions. 2. Nausea, vomiting. Since the last 2 to 3 days, he is not able to eat or keep anything down. Gave IV fluids, IV antiemetics. Pt able to take PO meds and have breakfast and early lunch (advanced diet) today without nausea Pt clinically much improved and is inquiring about going home. 3. History of coronary artery disease, status post coronary artery bypass grafting, status post stents. Continue his home medications of beta juana, Plavix, statin and ezetimibe. 4. Paroxysmal atrial fibrillation. Continue metoprolol succinate and Eliquis. Pt able to take PO meds now 5. History of diabetes. Hold his home medication. Place him on insulin sliding scale. Follow the blood sugars. 6. History of sarcoidosis, on prednisone 5 mg daily.Placed him on IV Decadron while inpt, resume prednisone on discharge. 7. Gastroesophageal reflux disease. Continue Protonix. 8. Benign prostatic hypertrophy. Continue Flomax and finasteride. Monitor for any urinary retention. 9. Depression. Continue duloxetine. 10. Hyperlipidemia, on statin and ezetimibe. 11. Hypothyroidism, on Synthroid. 12. Obstructive sleep apnea, on CPAP at bedtime. 13. Chronic kidney disease stage III. Presents with creatinine of 1.3. Monitor labs. 14. History of hypercalcemia from sarcoidosis. His calcium is okay.Monitor laboratories. Total Time Total Time Spent Total Time Spent (In Minutes): 40 Discharge Plan Discharge Items Patient Disposition: Home - Self-Care Reason For Visit: N/V, COVID-19 Discharge Diagnosis: Nausea, vomiting, in the setting of COVID-19 Activity: Per Instructions section Non-emergency contact: Primary Care Provider Call non-emergency contact if: you have any medication questions and your symptoms worsen Follow-up/Referrals: Abundio Melissa MD [Primary Care Provider] - (Date & Time 08/05/2022 1:00 PM Provider Abundio Melissa III, MD Department [facility] ) Diet: Regular Addtl Attending Provider Instructions: Follow-up with your primary care physician, the appointment was scheduled for you for August 05. Slowly advance your diet as tolerated. Addtl Office Lead Provider Instructions: Home Isolation COVID-19 Instructions The following information about Home Isolation is from the CDC Website: https://www.cdc.gov/coronavirus/2019-ncov/hcp/lhngkavj-juxvmbj-apftcr.html Stay home except to get medical care People who are mildly ill with COVID-19 are able to isolate at home during their illness. You should restrict activities outside your home, except for getting medical care. Do not go to work, school, or public areas. Avoid using public transportation, ride-sharing, or taxis. Separate yourself from other people and animals in your home People: As much as possible, you should stay in a specific room and away from o ther people in your home. Also, you should use a separate bathroom, if available. Animals: You should restrict contact with pets and other animals while you are sick with COVID-19, just like you would around other people. Although there have not been reports of pets or other animals becoming sick with COVID-19, it is still recommended that people sick with COVID-19 limit contact with animals until more information is known about the virus. When possible, have another member of your household care for your animals while you are sick. If you are sick with COVID-19, avoid contact with your pet, including petting, snuggling, being kissed or licked, and sharing food. If you must care for your pet or be around animals while you are sick, wash your hands before and after you interact with pets and wear a face mask. Call ahead before visiting your doctor If you have a medical appointment, call the healthcare provider and tell them that you have or may have COVID-19. This will help the healthcare providers office take steps to keep other people from getting infected or exposed. Wear a face mask You should wear a face mask when you are around other people (e.g., sharing a room or vehicle) or pets and before you enter a healthcare providers office. If you are not able to wear a face mask (for example, because it causes trouble breathing), then people who live with you should not stay in the same room with you, or they should wear a face mask if they enter your room. Cover your coughs and sneezes Cover your mouth and nose with a tissue when you cough or sneeze. Throw used tissues in a lined trash can. Immediately wash your hands with soap and water for at least 20 seconds or, if soap and water are not available, clean your hands with an alcohol-based hand candy dipper that contains at least 60% alcohol. Clean your hands often Wash your hands often with soap and water for at least 20 seconds, especially after blowing your nose, coughing, or sneezing; going to the bathroom; and before eating or preparing food. If soap and water are not readily available, use an alcohol-based hand candy dipper with at least 60% alcohol, covering all surfaces of your hands and rubbing them together until they feel dry. Soap and water are the best option if hands are visibly dirty. Avoid touching your eyes, nose, and mouth with unwashed hands. Avoid sharing personal household items You should not share dishes, drinking glasses, cups, eating utensils, towels, or bedding with other people or pets in your home. After using these items, they should be washed thoroughly with soap and water. Clean all high-touch surfaces everyday High touch surfaces include counters, tabletops, doorknobs, bathroom fixtures, toilets, phones, keyboards, tablets, and bedside tables. Also, clean any surfaces that may have blood, stool, or body fluids on them. Use a household cleaning spray or wipe, according to the label instructions. Labels contain instructions for safe and effective use of the cleaning product including pr ecautions you should take when applying the product, such as wearing gloves and making sure you have good ventilation during use of the product. Monitor your symptoms Seek prompt medical attention if your illness is worsening (e.g., difficulty breathing).Beforeseeking care, call your healthcare provider and tell them that you have, or are being evaluated for, COVID-19. Put on a face mask before you enter the facility. These steps will help the healthcare providers office to keep other people in the office or waiting room from getting infected or exposed. Ask your healthcare provider to call the local or state health department. Persons who are placed under active monitoring or facilitated self- monitoring should follow instructions provided by their local health department or occupational health professionals, as appropriate. When working with your local health department check their available hours. If you have a medical emergency and need to call 911, notify the dispatch personnel that you have, or are being evaluated for COVID-19. If possible, put on a face mask before emergency medical services arrive. Discontinuing home isolation Patients with confirmed COVID-19 should remain under home isolation precautions until the risk of secondary transmission to others is thought to be low. The decision to discontinue home isolation precautions should be made on a ykkv-vy-xmir basis, in consultation with healthcare providers and state and [facility] health departments. Coronavirus disease 2019 (COVID-19) is a virus that causes a respiratory illness. It is caused by a coronavirus called 2019 novel coronavirus (2019- nCoV). There are many types of coronavirus. Coronaviruses are a very common cause of bronchitis. They may sometimes cause lung infection(pneumonia). Symptoms can range from mild to severe respiratory illness. These viruses are also foundin some animals. COVID-19 was first found in people in [facility], in late 2019. In 2020, several cases of COVID-19 have been confirmed in the [place] Public health officials are working to find the source. How the virus spreads is not yet fully known. It may be spread through droplets of fluid that a person coughs or sneezes into the air. It may be spread if you touch a surface with virus on it, such as a handle or object, and then touch your mouth. What are the symptoms of COVID-19? Some people have no symptoms or mild symptoms. Symptoms may appear 2 to 14 days after contact with the virus. Symptoms can include: Fever Coughing Trouble breathing What are possible complications from COVID-19? In many cases, this virus can cause infection (pneumonia) in both lungs. In some cases, this can cause . How is COVID-19 diagnosed? Your healthcare provider will ask about your symptoms. He or she will also ask about your recent travel and contact with sick people. Testing for the virus is only done through the CDC. If yourhealthcare provider thinks you may have COVID- 19, he or she will work with your local health department and the CDC on testing. Follow all instructions from your healthcare provider. COVID-19 is diagnosed by: Nasal and throat swab. A cotton-tipped swab is wiped inside your nose or throat. This is done to check for viruses in your nasal mucus. Sputum culture. A small sample of mucus coughed from your lungs (sputum) is collected if you have a cough. It is checked for the virus. How is COVID-19 treated? There is currently no medicine to treat the virus. Treatment is done to help your body while it fights the virus. This is known as supportive care. Supportive care may include: Pain medicine. These include acetaminophen and ibuprofen. They are used to help ease pain and reduce fever. Bed rest. This helps your body fight the illness. For severe illness, you may need to stay in the hospital. Care during severe illness may include: IV (intravenous) fluids.These are given through a vein to help keep your body hydrated. Oxygen. Supplemental oxygen or ventilation with a breathing machine (ventilator) may be given. This is done to keep enough oxygen in your body. Are you at risk for COVID-19? If youve been to a place where people have been sick with this virus, you are at risk for infection. You are at risk if you: Recently traveled to an affected area Had contact with a sick person who recently traveled to this area Had contact with a person who was diagnosed with COVID-19 How can COVID-19 be prevented? There is no vaccine yet. The best prevention is to not have contact with the virus. The CDC advises that people should not travel to areas where there are COVID-19 outbreaks right now for any reason that is not urgent. To help prevent spreading the infection, wash your hands often, or use an alcohol-basedhand candy dipper. If you are in an area with COVID-19: Wash your hands often. Or use an alcohol-based hand candy dipper often. Only touch your eyes, nose, or mouth with clean hands. Dont have contact with people who are sick. Follow local instructions about being in public. For example, you may be told to not use public transport for a period of time. Stay away from markets that have live or animals. Wash your hands after touching any animals. Don't touch animals that may be sick. Dont share eating or drinking tools with sick people. Dont kiss someone who is sick. Clean surfaces often with disinfectant. If you were in an area with COVID-19 in the last 14 days: Call your healthcare provider. He or she can talk with local health staff to see what action may be needed. Follow all instructions from your provider. Take your temperature every morning and evening for at least 14 days. This is to check for fever. Keep a record of the readings. Keep watch for symptoms of the virus. Tell your provider right away if you have symptoms. If you were in an area with COVID-19 and have a fever or other symptoms: Dont panic. Keep in mind that other illnesses can cause similar symptoms. Stay away from work, school, and public places. Limit physical contact with family members. Don't kiss anyone or share eating or drinking utensils. Clean surfaces you touch with disinfectant. This is to help prevent the virus from spreading. Call your healthcare provider. Explain that you have been exposed to COVID-19 and have symptoms. Do this before going to any hospital. Wait for instructions. Keep in mind that healthcare staff may wear protective equipment such as masks, gowns, gloves, and eye protection. You may be put in a separate room. This is to prevent the possible virus from spreading. Tell the healthcare staff about recent travel. This includes local travel on public transport. Staff may need to find other people you have been in contact with. Follow all instructions the healthcare staff give you. If you have been diagnosed with COVID-19 Follow all instructions from your healthcare provider. Dont leave your home, except to get medical care. Call your healthcare providers office before going. They can prepare and give you instructions. This will help prevent the virus from spreading. Dont go to work, school, or public areas. Dont use public transport or taxis. Stay away from other people in your home. Have them wear face masks around you. Dont share household items or food. Wear a face mask if you can. This includes at home or in a medical facility. Cover your face with a tissue when you cough or sneeze. Throw the tissue away. Wash your hands. Wash your hands often. Caregivers should: Follow all instructions from healthcare staff. Wear a face mask and protective clothing as advised. Wash hands often. Keep track of the sick persons symptoms. Clean surfaces, fabrics, and laundry thoroughly. Keep other people away from the sick person. When to call your healthcare provider Call your healthcare provider: If youve recently traveled and have symptoms If you have been diagnosed with COVID-19 and your symptoms are worse To learn more To find out more about COVID-19, visit the CDC website at www.cdc.gov/coronavirus/2019-ncov/index.html. 7362-2931 [employer]. [address] [place] [address]. All rights reserved. This information is not intended as a substitute for professional medical care. Always follow your healthcare professional's instructions. This information has been adapted from [employer] Pending Studies at Discharge: No Stand-Alone Forms: My [facility] Relationship Science, Smoking Cessation Medications and DC Order Prescriptions: New Advanced Probiotic 625 mg (10 billion cell) Capsule 2 cap PO DAILY 7 Days Qty: 14 0RF promethazine 12.5 mg suppository 12.5 mg OK DAILY Qty: 12 0RF Continued cyanocobalamin (vitamin B-12) 100 mcg tablet 200 mcg PO QAM atorvastatin [Lipitor] 80 mg tablet 80 mg PO HS icosapent ethyl [Vascepa] 1 gram Capsule 2 g PO AMHS alprazolam [Xanax] 0.5 mg Tablet 0.5 mg PO HS nitroglycerin [Nitrostat] 0.4 mg Tablet, Sublingual 0.4 mg Sublingual DIRECTED PRN (Reason: Chest Pain) Rx Instructions: PLACE ONE TABLET UNDER THE TONGUE EVERY 5 MINUTES FOR UP TO 3 DOSES OVER 15 MINUTES IF NEEDED FOR CHEST PAIN levothyroxine [Synthroid] 137 mcg tablet 137 mcg PO QAM ascorbic acid (vitamin C) [Vitamin C] 500 mg Tablet 500 mg PO DAILY ferrous sulfate 325 mg (65 mg iron) tablet 325 mg PO [id number] Rx Instructions: TAKES MON, WED, & FRI. TAKE THIS MEDICATION WITH VITAMIN C ondansetron 4 mg tablet,disintegrating 4 mg PO Q8H PRN (Reason: Nausea) Rx Instructions: ALLOW TABLET TO DISSOLVE ON TONGUE metformin 500 mg tablet extended release 24 hr 500 mg PO AMHS tamsulosin 0.4 mg capsule 0.4 mg PO DAILY Qty: 30 0RF ezetimibe 10 mg tablet 10 mg PO DAILY clopidogrel 75 mg tablet 75 mg PO DAILY Eliquis 5 mg tablet 5 mg PO BID finasteride 5 mg tablet 5 mg PO QAM duloxetine 60 mg capsule,delayed release(DR/EC) 60 mg PO QAM gabapentin 300 mg capsule 300 mg PO HS pantoprazole 40 mg tablet,delayed release (DR/EC) 40 mg PO AMHS metoprolol succinate 50 mg tablet extended release 24 hr 50 mg PO AMHS tramadol 50 mg tablet 50 mg PO DAILY PRN (Reason: mod-severe pain) prednisone 5 mg Tablet 5 mg PO QAM acetaminophen 500 mg Tablet 1,000 mg PO Q6H PRN (Reason: Fever Or Pain) meclizine 25 mg Tablet 12.5 - 25 mg PO Q6 PRN (Reason: Dizziness) Trulicity 1.5 mg/0.5 mL Pen Injector 1.5 mg SUBCUT WK Rx Instructions: administer on SUNDAYS oxycodone 5 mg tablet 5 mg PO Q6H PRN (Reason: pain) Qty: 12 0RF Discharge Orders: Discharge Order (Routine); Ordered 08/02/22 Ordered By: Ke Bautista/Other Patient Handouts: Managing Type 2 Diabetes Admission Data Admit Date/Time: 08/01/22 14:42 Attending Provider: Ke Timmons Admit Provider: Jac Yao Primary Care Provider: Abundio Melissa Other Providers: Jac Yao
== END 2022-08-02 13:39 | disposition home or self-care (01) | DRG 178 ==
LOC: ED 17:41 → 2E 17:41

== ENCOUNTER 2022-08-05 22:06 | Inpatient (IN) ==
[2022-08-05] MEDS ORDERED: ONDANSETRON INJ 2 MG/ML 2 ML VIAL IV STA (22:20)
[2022-08-05] MEDS ORDERED: FAMOTIDINE 20MG IV PUSH 20 MG/5 ML SYR IV STA (22:20)
--- NOTE | 2022-08-05 22:26 | Emergency Department Note ---
History of Present Illness General Chief complaint: Vomiting Stated complaint: VOMITING Time Seen by Provider: 08/05/22 22:13 History of Present Illness Maximum Pain Intensity: 7 This 66-year-old male that was just released from the hospital the other day for COVID and with nausea and vomiting presents with same complaints. He now states his abdomen hurts. Patient denies chest pain, dyspnea, cough, congestion. He states he keeps on vomiting and cannot keep anything down. The pharmacy was out of the suppository nausea medicine. Home Medications Medication Instructions Recorded Confirmed Type alprazolam 0.5 mg tablet (Xanax) 0.5 mg PO HS 01/29/18 08/05/22 History nitroglycerin 0.4 mg sublingual 0.4 mg sublingual DIRECTED PRN 01/29/18 08/05/22 History tablet (Nitrostat) Chest Pain icosapent ethyl 1 gram capsule 2 g PO AMHS 12/03/18 08/05/22 History (Vascepa) atorvastatin 80 mg tablet (Lipitor) 80 mg PO HS 09/13/19 08/05/22 History cyanocobalamin (vitamin B-12) 100 200 mcg PO QAM 09/13/19 08/05/22 History mcg tablet ascorbic acid (vitamin C) 500 mg 500 mg PO DAILY 04/24/20 08/05/22 History tablet (Vitamin C) ferrous sulfate 325 mg (65 mg 325 mg PO 3XWK 04/24/20 08/05/22 History iron) tablet levothyroxine 137 mcg tablet 137 mcg PO QAM 04/24/20 08/05/22 History (Synthroid) metformin 500 mg tablet,extended 500 mg PO AMHS 04/24/20 08/05/22 History release 24 hr ondansetron 4 mg disintegrating 4 mg PO Q8H PRN Nausea 04/24/20 08/05/22 History tablet ezetimibe 10 mg tablet 10 mg PO DAILY 12/31/20 08/05/22 History apixaban 5 mg tablet (Eliquis) 5 mg PO BID 04/19/21 08/05/22 History clopidogrel 75 mg tablet 75 mg PO DAILY 04/19/21 08/05/22 History oxycodone 5 mg tablet 5 mg PO Q6H PRN pain #12 tabs 02/24/22 08/05/22 Rx acetaminophen 500 mg tablet 1,000 mg PO Q6H PRN Fever Or Pain 07/31/22 08/05/22 History dulaglutide 1.5 mg/0.5 mL 1.5 mg subcut WK 07/31/22 08/05/22 History subcutaneous pen injector (Trulicity) duloxetine 60 mg capsule,delayed 60 mg PO QAM 07/31/22 08/05/22 History release finasteride 5 mg tablet 5 mg PO QAM 07/31/22 08/05/22 History gabapentin 300 mg capsule 300 mg PO HS 07/31/22 08/05/22 History meclizine 25 mg tablet 12.5 - 25 mg PO Q6 PRN Dizziness 07/31/22 08/05/22 Hist ory metoprolol succinate 50 mg 50 mg PO AMHS 07/31/22 08/05/22 History tablet,extended release 24 hr pantoprazole 40 mg tablet,delayed 40 mg PO AMHS 07/31/22 08/05/22 History release prednisone 5 mg tablet 5 mg PO QAM 07/31/22 08/05/22 History tramadol 50 mg tablet 50 mg PO DAILY PRN mod-severe pain 07/31/22 08/05/22 History L.acidop,casei,lactis,rham-B.lact,augusto 2 cap PO DAILY 7 days #14 caps 08/02/22 08/05/22 Rx 625 mg (10 billion cell) capsule (Advanced Probiotic) promethazine 12.5 mg rectal 12.5 mg [place] DAILY #12 ea 08/02/22 08/05/22 Rx suppository tamsulosin 0.4 mg capsule 0.4 mg PO QAM 08/05/22 08/05/22 History Allergies Allergy/AdvReac Type Severity Reaction Status Date / Time Quinolones Allergy Unknown Unknown Verified 07/31/22 21:25 ofloxacin [From Floxin] AdvReac Severe Hallucinati Verified 07/31/22 21:25 ng Past Med/Surg History Medical History CAD (coronary artery disease) s/p PCI to LAD due to atretic WHITAKER graft CAD (coronary artery disease) Diabetes Diabetes HTN (hypertension) Hyperlipidemia Hypothyroidism associated with surgical procedure Kidney disease Obesity (BMI 30.0-34.9) Thyroid cancer thyroidectomy in 2001 Thyroidectomy (02/21/13) Surgical History Aortocoronary bypass status 03/2014 : 2x CABG [place] [facility] [place] History of cardiac cath History of thyroidectomy Stented coronary artery Occluded Staphenous Vein Graft. NIMESH x's 4 Social History Smoking Status: Never smoker Second Hand Exposure: Yes ( smoker); Hx Alcohol Use: No Hx Substance Use: No Preferred Language: Faroese Communication Ability: Effective Thread Cutter Tender Required: No Beliefs That Will Affect Care: None marital status: Current Living Situation: Spouse and Family Current Living Situation Comment: House current occupation: Retired Feels Safe at Home: Yes Assistive Devices: Contacts Review of Systems A total of 10 systems reviewed and were otherwise negative Physical Exam Vital Signs Vital Signs - 24 hr 08/05/22 22:16 08/05/22 23:14 08/06/22 01:22 Temperature 37.2 C Temperature Source Temporal Artery Scan Pulse Rate 105 H 87 81 Pulse Rate [Finger] Pulse Rhythm [Finger] Respiratory Rate 18 20 Respiratory Effort / Characteristics Non-Labored Spontaneous Respiratory Depth Normal Blood Pressure 100/64 Blood Pressure [Left Arm] Blood Pressure Mean 76 Blood Pressure Mean [Left Arm] Pulse Oximetry 93 98 Oxygen Delivery Method Room Air Room Air Sepsis Recent Fever Within 48 Hours No Sepsis New/Unexplained Change in Mental Status No Sepsis Action Taken by Nursing No Action Required 08/06/22 00:00 08/06/22 01:00 08/06/22 02:00 Temperature Temperature Source Pulse Rate Pulse Rate [Finger] 84 75 75 Pulse Rhythm [Finger] Regular Respiratory Rate 18 18 18 Respiratory Effort / Characteristics Respiratory Depth Blood Pressure Blood Pressure [Left Arm] 124/84 115/77 112/74 Blood Pressure Mean Blood Pressure Mean [Left Arm] 97 89 86 Pulse Oximetry 94 94 90 Oxygen Delivery Method Room Air Sepsis Recent Fever Within 48 Hours Sepsis New/Unexplained Change in Mental Status Sepsis Action Taken by Nursing 08/06/22 03:00 Temperature Temperature Source Pulse Rate Pulse Rate [Finger] 71 Pulse Rhythm [Finger] Respiratory Rate 18 Respiratory Effort / Characteristics Respiratory Depth Blood Pressure Blood Pressure [Left Arm] 116/62 Blood Pressure Mean Blood Pressure Mean [Left Arm] 80 Pulse Oximetry 89 L Oxygen Delivery Method Sepsis Recent Fever Within 48 Hours Sepsis New/Unexplained Change in Mental Status Sepsis Action Taken by Nursing VITALS: Vitals are noted on the nurse's note and reviewed by myself. Vital signs stable. GENERAL: Pleasant gentleman vomiting in front of me, in no acute distress, nondiaphoretic, well-developed well-nourished. SKIN: The skin was without rashes, erythema, edema, or bruising. There is no tenting of the skin. Capillary reflex less than 2 seconds. HEAD: Normocephalic atraumatic. EARS: External auditory canals clear, tympanic membranes pearly blancas without erythema or effusion bilaterally. EYES: Pupils equal round and reactive to light and accommodation. Conjunctivae without injection, sclerae without icterus. Extraocular movements intact. NOSE: Patent, turbinates without inflammation or discharge. MOUTH: Mucous membranes mildly dry. Pharynx without erythema or exudate. Uvula midline. Airway patent. Tongue does not deviate. NECK: Supple without nuchal rigidity. No lymphadenopathy. No thyromegaly. Cervical spine is nontender. No JVD. HEART: Regular rate and rhythm LUNGS: Clear to auscultation bilaterally without wheezes, rales or rhonchi. No retractions or accessory muscle use. ABDOMEN: Positive bowel sounds x 4. Normal tympanic percussion. Soft, mild diffuse tenderness, without masses or organomegaly. Mcgraw sign negative. No guarding or rebound tenderness. No CVA tenderness MUSCULOSKELETAL: No muscle atrophy, erythema, or edema noted. NEURO: Patient was alert and oriented to person place and time. Normal sensation to light and sharp touch. No focal neurological deficits. Course Administered Medications Magnesium Sulfate/Dextrose (Magnesium Sulfate / D5w) 1 gm in 100 mls @ 50 mls/hr IV ONE STA Stop: 08/06/22 04:45 Last Admin: 08/06/22 03:05 Dose: 50 mls/hr Documented By: MARGARETH Discontinued Medications Sodium Chloride (Nss) 500 mls @ 999 mls/hr IV .Q31M ANA Stop: 08/05/22 23:00 Last Infusion: 08/05/22 23:43 Dose: 0 mls/hr Documented By: Admin: 08/05/22 23:08 Dose: 999 mls/hr Documented By: MARGARETH Famotidine (Pepcid 20mg Iv Push) 20 mg in 5 mls @ 2.5 mls/min IV NOW STA Stop: 08/05/22 22:21 Last Admin: 08/05/22 23:08 Dose: 2.5 mls/min Documented By: MARGARETH Sodium Chloride (Nss 1000ml) 500 mls @ 999 mls/hr IV .Q31M ONE Stop: 08/06/22 00:02 Last Admin: 08/06/22 01:18 Dose: 999 mls/hr Documented By: MARGARETH Piperacillin Sod/Tazobactam Sod (Zosyn) 4.5 gm in 120 mls @ 240 mls/hr IV NOW STA Stop: 08/06/22 03:49 Last Admin: 08/06/22 03:55 Dose: 240 mls/hr Documented By: MARGARETH Ioversol (Optiray 320 500ml) 125 ml IV ONCE ONE Stop: 08/06/22 00:04 Last Admin: 08/06/22 00:03 Dose: 100 ml Documented By: YUDELKA Metoclopramide HCl (Metoclopramide Hcl Inj 5 Mg/Ml 2 Ml Vial) 10 mg IV NOW STA Stop: 08/06/22 00:54 Last Admin: 08/06/22 01:17 Dose: 10 mg Documented By: MARGARETH Ondansetron HCl (Ondansetron Inj 2 Mg/Ml 2 Ml Vial) 4 mg IV NOW STA Stop: 08/05/22 22:21 Last Admin: 08/05/22 23:05 Dose: 4 mg Documented By: MARGARETH Medical Decision Making Medical Records Attestation: I reviewed the patient's medical records. Home Medications Current Medication List: was personally reviewed by me Laboratory Data Attestation: I reviewed the patient's lab results. 08/05/22 22:41 08/05/22 22:41 Lab Results 08/05/22 08/05/22 08/05/22 Range/Units 00:00 22:41 22:41 WBC 2.92 L (4.8-10.8) K/ul RBC 5.48 (4.70-6.10) M/uL Hgb 16.1 (14.0-18.0) g/dl Hct 45.5 (42.0-52.0) % MCV 83.0 (80.0-100.0) fL MCH 29.4 (25.0-34.0) pg MCHC 35.4 (32.0-36.0) g/dL RDW Std Deviation 38.1 (36.4-46.3) fL RDW Coeff of Cuco 12.5 (11.5-14.5) % Plt Count 221 (130-400) K/uL MPV 9.6 (9.4-12.4) fL Immature Gran % (Auto) 0.7 % Neut % (Auto) 80.1 % Lymph % (Auto) 8.2 % [place] % (Auto) 11.0 % Eos % (Auto) 0.0 % Baso % (Auto) 0.0 % Neut # (Auto) 2.34 (1.40-6.50) K/uL Lymph # (Auto) 0.24 L (1.2-3.4) K/uL [place] # (Auto) 0.32 (0.11-0.59) K/uL Eos # (Auto) 0.00 (0-0.50) K/uL Baso # (Auto) 0.00 (0-0.2) K/uL Immature Gran # (Auto) 0.02 (0.01-0.20) K/uL ABG pH (7.35-7.45) ABG pCO2 (35-46) mmHg ABG pO2 (80-95) mmHg ABG HCO3 (19-24) mmol/L ABG O2 Saturation (90-95) % ABG Base Excess (-9-1.8) mEq/L Sodium 135 L (136-145) mmol/L Potassium 3.3 L (3.5-5.1) mmol/L Chloride 100 (98-107) mmol/L Carbon Dioxide 22 (21-32) mmol/L Anion Gap 13 H (3-11) BUN 14 (6-23) mg/dl Creatinine 1.20 (0.6-1.4) mg/dl Est Cr Clr Drug Dosing 60.3 ml/min Est GFR ( Amer) 73.1 ml/min Est GFR (Non-Af Amer) 63.1 ml/min BUN/Creatinine Ratio 11.7 (10-20) Glucose 111 H (70-99(Fasting)) mg/dl Lactate (0.4-2.0) mmol/L Calcium 7.9 L (8.6-10.3) mg/dl Magnesium 1.8 (1.7-2.4) mg/dl Total Bilirubin 1.0 (0.2-1.0) mg/dl AST 22 (13-39) U/L ALT 13 (7-52) U/L Alkaline Phosphatase 48 (34-104) U/L Total Creatine Kinase 46 (30-223) U/L Troponin I High Sens 9.4 (0-20) pg/ml Total Protein 6.8 (6.0-8.3) gm/dl Albumin 3.7 (3.4-5.0) gm/dl Globulin 3.1 (2.5-4.0) gm/dl Albumin/Globulin Ratio 1.2 (0.9-2) Lipase (11-82) U/L Urine Color Urine Appearance (Clear) Urine pH (4.5-7.5) Ur Specific [place] (1.000-1.030) Urine Protein (Negative) Urine Glucose (UA) (Negative) Urine Ketones (Negative) Urine Blood (Negative) Urine Nitrite (Negative) Urine Bilirubin (Negative) Urine Urobilinogen (Negative) Ur Leukocyte Esterase (Negative) Urine WBC (Auto) (0-5) /hpf Urine RBC (Auto) (0-4) /hpf U Hyaline Cast (Auto) (0-5) /lpf U Epithel Cells (Auto) (0-5) /lpf Urine Bacteria (Auto) (Negative) SARS-CoV-2, RNA, NAAT POSITIVE A* (NEGATIVE) 08/05/22 08/06/22 08/06/22 Range/Units 23:24 00:20 00:46 WBC (4.8-10.8) K/ul RBC (4.70-6.10) M/uL Hgb (14.0-18.0) g/dl Hct (42.0-52.0) % MCV (80.0-100.0) fL MCH (25.0-34.0) pg MCHC (32.0-36.0) g/dL RDW Std Deviation (36.4-46.3) fL RDW Coeff of Cuco (11.5-14.5) % Plt Count (130-400) K/uL MPV (9.4-12.4) fL Immature Gran % (Auto) % Neut % (Auto) % Lymph % (Auto) % [place] % (Auto) % Eos % (Auto) % Baso % (Auto) % Neut # (Auto) (1.40-6.50) K/uL Lymph # (Auto) (1.2-3.4) K/uL [place] # (Auto) (0.11-0.59) K/uL Eos # (Auto) (0-0.50) K/uL Baso # (Auto) (0-0.2) K/uL Immature Gran # (Auto) (0.01-0.20) K/uL ABG pH (7.35-7.45) ABG pCO2 (35-46) mmHg ABG pO2 (80-95) mmHg ABG HCO3 (19-24) mmol/L ABG O2 Saturation (90-95) % ABG Base Excess (-9-1.8) mEq/L Sodium (136-145) mmol/L Potassium (3.5-5.1) mmol/L Chloride (98-107) mmol/L Carbon Dioxide (21-32) mmol/L Anion Gap (3-11) BUN (6-23) mg/dl Creatinine (0.6-1.4) mg/dl Est Cr Clr Drug Dosing ml/min Est GFR ( Amer) ml/min Est GFR (Non-Af Amer) ml/min BUN/Creatinine Ratio (10-20) Glucose (70-99(Fasting)) mg/dl Lactate 1.8 (0.4-2.0) mmol/L Calcium (8.6-10.3) mg/dl Magnesium (1.7-2.4) mg/dl Total Bilirubin (0.2-1.0) mg/dl AST (13-39) U/L ALT (7-52) U/L Alkaline Phosphatase (34-104) U/L Total Creatine Kinase (30-223) U/L Troponin I High Sens 9.5 (0-20) pg/ml Total Protein (6.0-8.3) gm/dl Albumin (3.4-5.0) gm/dl Globulin (2.5-4.0) gm/dl Albumin/Globulin Ratio (0.9-2) Lipase 41 (11-82) U/L Urine Color Yellow Urine Appearance Clear (Clear) Urine pH 6.0 (4.5-7.5) Ur Specific [place] > 1.045 H (1.000-1.030) Urine Protein 2+ H (Negative) Urine Glucose (UA) Negative (Negative) Urine Ketones 1+ H (Negative) Urine Blood Negative (Negative) Urine Nitrite Negative (Negative) Urine Bilirubin Negative (Negative) Urine Urobilinogen Negative (Negative) Ur Leukocyte Esterase Negative (Negative) Urine WBC (Auto) 1-5 (0-5) /hpf Urine RBC (Auto) 0-4 (0-4) /hpf U Hyaline Cast (Auto) 5-10 H (0-5) /lpf U Epithel Cells (Auto) 20-30 H (0-5) /lpf Urine Bacteria (Auto) Negative (Negative) SARS-CoV-2, RNA, NAAT (NEGATIVE) 08/06/22 08/06/22 Range/Units 03:47 03:47 WBC (4.8-10.8) K/ul RBC (4.70-6.10) M/uL Hgb (14.0-18.0) g/dl Hct (42.0-52.0) % MCV (80.0-100.0) fL MCH (25.0-34.0) pg MCHC (32.0-36.0) g/dL RDW Std Deviation (36.4-46.3) fL RDW Coeff of Cuco (11.5-14.5) % Plt Count (130-400) K/uL MPV (9.4-12.4) fL Immature Gran % (Auto) % Neut % (Auto) % Lymph % (Auto) % [place] % (Auto) % Eos % (Auto) % Baso % (Auto) % Neut # (Auto) (1.40-6.50) K/uL Lymph # (Auto) (1.2-3.4) K/uL [place] # (Auto) (0.11-0.59) K/uL Eos # (Auto) (0-0.50) K/uL Baso # (Auto) (0-0.2) K/uL Immature Gran # (Auto) (0.01-0.20) K/uL ABG pH 7.43 (7.35-7.45) ABG pCO2 33 L (35-46) mmHg ABG pO2 74 L (80-95) mmHg ABG HCO3 22 (19-24) mmol/L ABG O2 Saturation 97.3 H (90-95) % ABG Base Excess -1.7 (-9-1.8) mEq/L Sodium (136-145) mmol/L Potassium (3.5-5.1) mmol/L Chloride (98-107) mmol/L Carbon Dioxide (21-32) mmol/L Anion Gap (3-11) BUN (6-23) mg/dl Creatinine (0.6-1.4) mg/dl Est Cr Clr Drug Dosing ml/min Est GFR ( Amer) ml/min Est GFR (Non-Af Amer) ml/min BUN/Creatinine Ratio (10-20) Glucose (70-99(Fasting)) mg/dl Lactate 0.8 (0.4-2.0) mmol/L Calcium (8.6-10.3) mg/dl Magnesium (1.7-2.4) mg/dl Total Bilirubin (0.2-1.0) mg/dl AST (13-39) U/L ALT (7-52) U/L Alkaline Phosphatase (34-104) U/L Total Creatine Kinase (30-223) U/L Troponin I High Sens (0-20) pg/ml Total Protein (6.0-8.3) gm/dl Albumin (3.4-5.0) gm/dl Globulin (2.5-4.0) gm/dl Albumin/Globulin Ratio (0.9-2) Lipase (11-82) U/L Urine Color Urine Appearance (Clear) Urine pH (4.5-7.5) Ur Specific [place] (1.000-1.030) Urine Protein (Negative) Urine Glucose (UA) (Negative) Urine Ketones (Negative) Urine Blood (Negative) Urine Nitrite (Negative) Urine Bilirubin (Negative) Urine Urobilinogen (Negative) Ur Leukocyte Esterase (Negative) Urine WBC (Auto) (0-5) /hpf Urine RBC (Auto) (0-4) /hpf U Hyaline Cast (Auto) (0-5) /lpf U Epithel Cells (Auto) (0-5) /lpf Urine Bacteria (Auto) (Negative) SARS-CoV-2, RNA, NAAT (NEGATIVE) Imaging Data Attestation: I personally reviewed and interpreted this imaging study as follows: Radiologist's Impression: Abdomen/Pelvis CT 04/06/23 22:20 Exam(s): CT ABDOMEN + PELVIS With Contrast IV Amt: 100 ml optiray 320 EXAM: CT Abdomen and Pelvis With Intravenous Contrast CLINICAL HISTORY: Reason for exam: n/v, weakness. TECHNIQUE: Axial computed tomography images of the abdomen and pelvis with intravenous contrast. CTDI is 16.9 mGy and DLP is 744.97 mGy-cm. Automated exposure control was utilized for the study. A dose lowering technique was utilized adhering to the principles of ALARA. CONTRAST: Patient received 100 ml optiray 320 of IV contrast COMPARISON: Prior 03/03/2020 CT chest and 02/24/2022 CT abdomen and pelvis. CTA chest also today FINDINGS: Lung bases: Unremarkable. No mass. No consolidation. ABDOMEN: Liver: Unremarkable. No mass. Gallbladder and bile ducts: Cholecystectomy. No ductal dilation. Pancreas: Unremarkable. No mass. No ductal dilation. Spleen: Unremarkable. No splenomegaly. Adrenals: Unremarkable. No mass. Kidneys and ureters: Bilateral renal low-density lesions, likely cysts. Nonobstructing bilateral renal calculi. No hydronephrosis. Stomach and bowel: Colonic diverticulosis. No obstruction. No mucosal thickening. PELVIS: Appendix: Normal appendix. Bladder: Unremarkable. No mass. Reproductive: Unremarkable as visualized. ABDOMEN and PELVIS: Intraperitoneal space: Unremarkable. No free air. No significant fluid collection. Bones/joints: Please see separate CTA chest also today for thoracic findings. No acute fracture. No dislocation. Soft tissues: Unremarkable. Vasculature: Moderate aortoiliac calcifications. No abdominal aortic aneurysm. Lymph nodes: Unremarkable. No enlarged lymph nodes. IMPRESSION: 1. No evidence of acute abnormality. 2. Nonobstructing bilateral renal calculi. No hydronephrosis. 3. Colonic diverticulosis. Electronically signed by: Willam Baptiste M.D. 08/06/22 02:24 AM Chest CTA 08/05/22 23:11 Exam(s): CTA CHEST IV Amt: 100 ml optiray 320 EXAM: CT Angiography Chest With Intravenous Contrast CLINICAL HISTORY: Reason for exam: PE. History of sarcoidosis based on the prior chest CT report. TECHNIQUE: Axial computed tomographic angiography images of the chest with intravenous contrast. CTDI is 16.9 mGy and DLP is 744.97 mGy-cm. Automated exposure control was utilized for the study. A dose lowering technique was utilized adhering to the principles of ALARA. MIP reconstructed images were created and reviewed. COMPARISON: Prior 03/03/2020 CT chest and 02/24/2022 CT abdomen and pelvis. CT abdomen and pelvis also today. FINDINGS: Pulmonary arteries: Unremarkable. No pulmonary embolism. Aorta: No acute findings. No thoracic aortic aneurysm. Lungs: Bibasilar atelectasis or mild airspace disease. Scattered patchy areas of groundglass opacities bilaterally are new since the prior. Stable 6 mm right lower lobe peripheral nodule series 4 image 176. Similar mild peribronchial thickening. Pleural space: Small bilateral pleural effusions. New since the prior. No pneumothorax. Heart: Coronary calcifications. CABG. No significant pericardial effusion. No evidence of RV dysfunction. Mediastinum: See below. Bones/joints: Median sternotomy wires. No acute fracture. No dislocation. Soft tissues: Unremarkable. Lymph nodes: Mediastinal and bilateral hilar adenopathy similar to the prior. Right paratracheal node 2 cm short axis. IMPRESSION: 1. No evidence of pulmonary embolism. 2. Bibasilar atelectasis or mild airspace disease. Scattered patchy areas of groundglass opacities bilaterally are new since the prior. May represent infectious or inflammatory process. 3. Mediastinal and bilateral hilar adenopathy similar to the prior. Right paratracheal node 2 cm short axis. 4. Small bilateral pleural effusions. New since the prior. 5. Stable 6 mm right lower lobe peripheral nodule. Electronically signed by: Willam Baptiste M.D. 08/06/22 02:09 AM MDM Narrative Prior records/ancillary studies reviewed. Triage Nursing notes reviewed. Additional history obtained from the family. The patient's history was concerning for nausea, vomiting, and abdominal pain. Differential diagnosis: Etiologies such as COVID, gastroenteritis, food borne illness, infections, appendicitis, diverticulitis, inflammatory bowel disease, obstruction, GI bleed, biliary pathology, as well as others were entertained. Physical examination findings: As above. Abdominal examination revealed diffuse tenderness. Vital signs reviewed and revealed stable. ER treatment provided: IV hydration 1 L NSS. Zofran and Pepcid were ordered, Reglan was ordered as patient was still On reassessment the patient felt better. Patient was tolerating p.o. intake. Diagnostics interpretation by me: EKG ordered for weakness EKG: Normal sinus, left axis, no acute ST-T wave changes. Impression normal sinus rhythm left axis deviation rate of 95 independent interpreted by myself I think arrhythmia is unlikely. EKG shows normal sinus rhythm with no interval abnormalities such as QT prolongation or WPW. There are no findings to suggest Brugada syndrome. Cardiac monitoring in the emergency department reveals no tachycardic or bradycardic dysrhythmia. Hypertrophic cardiomyopathy was considered but there are no clear historical elements pointing toward this. EKG is not suggestive. The QRS voltage is not extremely large The labs Independently Interpreted by myself revealed positive COVID, no worrisome leukocytosis, negative urine Negative troponin x2 Imaging studies: CTs were reviewed and read by radiology. Patient has COVID most likely the infection seen is from this. Chest x-ray with patchy infiltrates most likely from the COVID without free air per my independent reputation Consultation: A consultation was placed with the hospitalist. The case was discussed and diagnostics were reviewed. The patient was evaluated in the ER for further treatment. This appears to be consistent with nausea and vomiting and COVID. Patient still continues to vomit. He feels quite weak. Medicine was consulted and the case was discussed. He will be readmitted. Labs and diagnostics are in for interpreted by myself. Radiology read the CAT scans as above. By the evaluation outlined above emergent etiologies such as appendicitis, diverticulitis, obstruction, cardiac sources, mesenteric ischemia, aortic pathology, inflammatory bowel disease, renal colic, PUD, biliary pathology, UTI, as well as others were deemed relatively unlikely. The pt informed about the findings as listed above. All questions were answered and pleased with the treatment. The chart was completed utilizing [email or web address] Speech voice recognition software. Grammatical errors, random word insertions, pronoun errors, and incomplete sentences are an occassional consequence of this system due to software limitations, ambient noise, and hardware issues. Any formal questions or concerns about the content, text, or information contained within the body of this dictation should be directly addressed to the physician assistant store manager operations for clarification. Impression & Plan Nausea & vomiting, COVID-19, Acute dehydration Discharge Plan Visit Data Chief Complaint: Vomiting Stated Complaint: VOMITING ED Provider: Jordyn Stoll ED Midlevel Provider: Maura Garcia Discharge Problem: Nausea & vomiting, COVID-19, Acute dehydration Patient Disposition: Admitted As Inpatient Condition: Good Forms Stand Alone Forms: My [facility] Prescriptions Prescriptions: No Action cyanocobalamin (vitamin B-12) 100 mcg tablet 200 mcg PO QAM atorvastatin [Lipitor] 80 mg tablet 80 mg PO HS icosapent ethyl [Vascepa] 1 gram Capsule 2 g PO AMHS alprazolam [Xanax] 0.5 mg Tablet 0.5 mg PO HS nitroglycerin [Nitrostat] 0.4 mg Tablet, Sublingual 0.4 mg Sublingual DIRECTED PRN (Reason: Chest Pain) Rx Instructions: PLACE ONE TABLET UNDER THE TONGUE EVERY 5 MINUTES FOR UP TO 3 DOSES OVER 15 MINUTES IF NEEDED FOR CHEST PAIN levothyroxine [Synthroid] 137 mcg tablet 137 mcg PO QAM ascorbic acid (vitamin C) [Vitamin C] 500 mg Tablet 500 mg PO DAILY ferrous sulfate 325 mg (65 mg iron) tablet 325 mg PO 3XWK Rx Instructions: TAKES MON, WED, & FRI. TAKE THIS MEDICATION WITH VITAMIN C ondansetron 4 mg tablet,disintegrating 4 mg PO Q8H PRN (Reason: Nausea) Rx Instructions: ALLOW TABLET TO DISSOLVE ON TONGUE metformin 500 mg tablet extended release 24 hr 500 mg PO AMHS ezetimibe 10 mg tablet 10 mg PO DAILY clopidogrel 75 mg tablet 75 mg PO DAILY Eliquis 5 mg tablet 5 mg PO BID finasteride 5 mg tablet 5 mg PO QAM duloxetine 60 mg capsule,delayed release(DR/EC) 60 mg PO QAM gabapentin 300 mg capsule 300 mg PO HS pantoprazole 40 mg tablet,delayed release (DR/EC) 40 mg PO AMHS metoprolol succinate 50 mg tablet extended release 24 hr 50 mg PO AMHS tramadol 50 mg tablet 50 mg PO DAILY PRN (Reason: mod-severe pain) prednisone 5 mg Tablet 5 mg PO QAM acetaminophen 500 mg Tablet 1,000 mg PO Q6H PRN (Reason: Fever Or Pain) meclizine 25 mg Tablet 12.5 - 25 mg PO Q6 PRN (Reason: Dizziness) Trulicity 1.5 mg/0.5 mL Pen Injector 1.5 mg SUBCUT WK Rx Instructions: administer on SUNDAYS Advanced Probiotic 625 mg (10 billion cell) Capsule 2 cap PO DAILY 7 Days Qty: 14 0RF promethazine 12.5 mg suppository 12.5 mg [place] DAILY Qty: 12 0RF tamsulosin 0.4 mg capsule 0.4 mg PO QAM oxycodone 5 mg tablet 5 mg PO Q6H PRN (Reason: pain) Qty: 12 0RF Referrals Referrals: Abundio Melissa MD [Primary Care Provider] - Nausea & vomiting Qualifiers: Vomiting type: unspecified Qualified Code(s): R11.2 - Nausea with vomiting, unspecified
[2022-08-05] MEDS ORDERED: SODIUM CHLORIDE 0.9% 500 ML IV SCH (22:30)
[2022-08-05 23:12] LABS: Hematocrit (blood only) 45.5 % (42.0-52.0); Hemoglobin 16.1 g/dl (14.0-18.0); Immature Granulocytes # (auto) 0.02 K/uL (0.01-0.20); Immature Granulocytes % (auto) 0.7 %; Lymphocytes # (auto) 0.24 K/uL (1.2-3.4); Lymphocytes % (auto) 8.2 %; Mean Corpuscular Hemoglobin 29.4 pg (25.0-34.0); Mean Corpuscular Hgb Conc 35.4 g/dL (32.0-36.0); Mean Platelet Volume 9.6 fL (9.4-12.4); Monocytes # (auto) 0.32 K/uL (0.11-0.59); Neutrophils # (auto) 2.34 K/uL (1.40-6.50); Neutrophils % (auto) 80.1 %; Platelet Count 221 K/uL (130-400); RDW Coefficient of Variation 12.5 % (11.5-14.5); RDW Standard Deviation 38.1 fL (36.4-46.3); Red Blood Count 5.48 M/uL (4.70-6.10); White Blood Count 2.92 K/ul (4.8-10.8)
[2022-08-05 23:19] LABS: Albumin Globulin Ratio 1.2 (0.9-2); Albumin Level 3.7 gm/dl (3.4-5.0); BUN Creatinine Ratio 11.7 (10-20); Calcium 7.9 mg/dl (8.6-10.3); Creatinine Clr Calc Pharmacy 60.3 ml/min; Est GFR (African American) 73.1 ml/min; Est GFR (Non-African American) 63.1 ml/min; Globulin 3.1 gm/dl (2.5-4.0); Magnesium 1.8 mg/dl (1.7-2.4); Potassium 3.3 mmol/L (3.5-5.1); Total Protein 6.8 gm/dl (6.0-8.3)
[2022-08-05 23:26] LABS: Troponin I High Sensitivity 9.4 pg/ml (0-20)
[2022-08-05] MEDS ORDERED: SODIUM CHLORIDE 0.9% 1000ML 500 ML IV ONE (23:32)
[2022-08-06] MEDS ORDERED: OPTIRAY 320 500ml IV ONE (00:03)
[2022-08-06 00:50] LABS: Troponin I High Sensitivity 9.5 pg/ml (0-20)
[2022-08-06] MEDS ORDERED: METOCLOPRAMIDE HCL INJ 5 MG/ML 2 ML VIAL IV STA (00:53)
[2022-08-06 01:13] LABS: Appearance Urine Clear (Clear); Bacteria Urine Automated Negative (Negative); Bilirubin Urine Negative (Negative); Blood Urine Negative (Negative); Color Urine Yellow; Epithelial Cell Urine Auto 20-30 /lpf (0-5); Glucose Urine UA Negative (Negative); Ketones Urine 1+ (Negative); Leukocyte Esterase Urine Negative (Negative); Nitrite Urine Negative (Negative); Protein Urine 2+ (Negative); RBC Urine Automated 0-4 /hpf (0-4); Specific Gravity Urine > 1.045 (1.000-1.030); Urobilinogen Urine Negative (Negative)
--- NOTE | 2022-08-06 02:11 | CT Scan Report ---
Exam(s): CTA CHEST IV Amt: 100 ml optiray 320 EXAM: CT Angiography Chest With Intravenous Contrast CLINICAL HISTORY: Reason for exam: PE. History of sarcoidosis based on the prior chest CT report. TECHNIQUE: Axial computed tomographic angiography images of the chest with intravenous contrast. CTDI is 16.9 mGy and DLP is 744.97 mGy-cm. Automated exposure control was utilized for the study. A dose lowering technique was utilized adhering to the principles of ALARA. MIP reconstructed images were created and reviewed. COMPARISON: Prior 03/03/2020 CT chest and 02/24/2022 CT abdomen and pelvis. CT abdomen and pelvis also today. FINDINGS: Pulmonary arteries: Unremarkable. No pulmonary embolism. Aorta: No acute findings. No thoracic aortic aneurysm. Lungs: Bibasilar atelectasis or mild airspace disease. Scattered patchy areas of groundglass opacities bilaterally are new since the prior. Stable 6 mm right lower lobe peripheral nodule series 4 image 176. Similar mild peribronchial thickening. Pleural space: Small bilateral pleural effusions. New since the prior. No pneumothorax. Heart: Coronary calcifications. CABG. No significant pericardial effusion. No evidence of RV dysfunction. Mediastinum: See below. Bones/joints: Median sternotomy wires. No acute fracture. No dislocation. Soft tissues: Unremarkable. Lymph nodes: Mediastinal and bilateral hilar adenopathy similar to the prior. Right paratracheal node 2 cm short axis. IMPRESSION: 1. No evidence of pulmonary embolism. 2. Bibasilar atelectasis or mild airspace disease. Scattered patchy areas of groundglass opacities bilaterally are new since the prior. May represent infectious or inflammatory process. 3. Mediastinal and bilateral hilar adenopathy similar to the prior. Right paratracheal node 2 cm short axis. 4. Small bilateral pleural effusions. New since the prior. 5. Stable 6 mm right lower lobe peripheral nodule. Electronically signed by: Willam Baptiste M.D. 08/06/22 02:09 AM
--- NOTE | 2022-08-06 02:25 | CT Scan Report ---
Exam(s): CT ABDOMEN + PELVIS With Contrast IV Amt: 100 ml optiray 320 EXAM: CT Abdomen and Pelvis With Intravenous Contrast CLINICAL HISTORY: Reason for exam: n/v, weakness. TECHNIQUE: Axial computed tomography images of the abdomen and pelvis with intravenous contrast. CTDI is 16.9 mGy and DLP is 744.97 mGy-cm. Automated exposure control was utilized for the study. A dose lowering technique was utilized adhering to the principles of ALARA. CONTRAST: Patient received 100 ml optiray 320 of IV contrast COMPARISON: Prior 03/03/2020 CT chest and 02/24/2022 CT abdomen and pelvis. CTA chest also today FINDINGS: Lung bases: Unremarkable. No mass. No consolidation. ABDOMEN: Liver: Unremarkable. No mass. Gallbladder and bile ducts: Cholecystectomy. No ductal dilation. Pancreas: Unremarkable. No mass. No ductal dilation. Spleen: Unremarkable. No splenomegaly. Adrenals: Unremarkable. No mass. Kidneys and ureters: Bilateral renal low-density lesions, likely cysts. Nonobstructing bilateral renal calculi. No hydronephrosis. Stomach and bowel: Colonic diverticulosis. No obstruction. No mucosal thickening. PELVIS: Appendix: Normal appendix. Bladder: Unremarkable. No mass. Reproductive: Unremarkable as visualized. ABDOMEN and PELVIS: Intraperitoneal space: Unremarkable. No free air. No significant fluid collection. Bones/joints: Please see separate CTA chest also today for thoracic findings. No acute fracture. No dislocation. Soft tissues: Unremarkable. Vasculature: Moderate aortoiliac calcifications. No abdominal aortic aneurysm. Lymph nodes: Unremarkable. No enlarged lymph nodes. IMPRESSION: 1. No evidence of acute abnormality. 2. Nonobstructing bilateral renal calculi. No hydronephrosis. 3. Colonic diverticulosis. Electronically signed by: Willam Baptiste M.D. 08/06/22 02:24 AM
[2022-08-06] MEDS ORDERED: MAGNESIUM SULFATE / D5W 1 GM/100 ML BAG IV STA (02:46)
[2022-08-06] MEDS ORDERED: NSS + 20MEQ KCL 20 MEQ/1,000 ML BAG IV STA (03:03)
[2022-08-06] MEDS ORDERED: PIPERACILLIN/TAZOBACTAM 4.5 GM/120 ML BAG IV STA (03:20)
[2022-08-06] MEDS ORDERED: PROMETHAZINE HCL 12.5 MG in SODIUM CHLORIDE 0.9% 50 ML IV PRN (03:25)
[2022-08-06] MEDS ORDERED: dexAMETHasone 6 MG in SYRINGE 0 ML IV STA (03:30)
[2022-08-06] MEDS ORDERED: REMDESIVIR 200 MG in SODIUM CHLORIDE 0.9% 210 ML IV STA (03:30)
[2022-08-06 03:53] LABS: Base Excess ABG -1.7 mEq/L (-9-1.8); HCO3 ABG 22 mmol/L (19-24); Oxygen Saturation ABG 97.3 % (90-95); PCO2 ABG 33 mmHg (35-46); PO2 ABG 74 mmHg (80-95); pH ABG 7.43 (7.35-7.45)
--- NOTE | 2022-08-06 04:02 | History & Physical Report ---
Date of Service August 06, 2022 Assessment & Plan (1) Acute hypoxemic respiratory failure: Plan: Secondary to severe COVID-19 pneumonia/HCAP given recent admission/possible aspiration pneumonia given nausea vomiting symptoms possible sepsis Immunocompromised patient, history sarcoidosis on chronic steroid Rx hx CAD status post CABG/stent PAF on Eliquis, patient NSR valvular heart disease (mild MR/AR) hypertension, BP on the lower side hyperlipidemia on statin Rx thyroid cancer status post surgery/radioablation DM2 on oral medications, well-controlled as of recent hemoglobin A1c of 6.9 last July 2022 postsurgical hypothyroidism, TSH noted to be low GERD, stable on regimen hypokalemia secondary to emesis Medical telemetry Supplemental O2 Baseline ABG CS, Zosyn Decadron course to be tapered down to patient's daily prednisone dose and Remdesivir for severe COVID-19 pneumonia. Pulmonary consult if without improvement Check free T4, levothyroxine dose may need adjustment Replace potassium DVT prophylaxis. Eliquis Full code Patient requests for to be updated of his progress. Ms. Libertad Hogan, contact #[phone]. Total critical time was 40 minutes. Text document was generated using [employer] voice recognition software. It may contain grammatical or spelling errors. Kindly contact undersigned for clarification of any documentation item in question. History of Present Illness Chief Complaint: Weakness, abdominal pain, nausea, vomiting Primary Care Provider: Abundio Melissa MD History obtained from patient and records. 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 Overnight confinement 4 days ago for COVID-19 illness presenting as congestion associated nausea vomiting symptoms. Patient felt okay upon discharge. At home, patient noted gradual worsening of cough symptoms later productive of green sputum. No chest pain, no SOB. Achy abdominal pain with nausea vomiting. Poor appetite and weakness. No diarrhea symptoms. Patient denies headache. O2 sats noted to be 80s at the ER. 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 Allergies Allergy/AdvReac Type Severity Reaction Status Date / Time Quinolones Allergy Unknown Unknown Verified 07/31/22 21:25 ofloxacin [From Floxin] AdvReac Severe Hallucinati Verified 07/31/22 21:25 ng Home Medications Medication Instructions Recorded Confirmed Type alprazolam 0.5 mg tablet (Xanax) 0.5 mg PO HS 01/29/18 08/05/22 History nitroglycerin 0.4 mg sublingual 0.4 mg sublingual DIRECTED PRN 01/29/18 08/05/22 History tablet (Nitrostat) Chest Pain icosapent ethyl 1 gram capsule 2 g PO AMHS 12/03/18 08/05/22 History (Vascepa) atorvastatin 80 mg tablet (Lipitor) 80 mg PO HS 09/13/19 08/05/22 History cyanocobalamin (vitamin B-12) 100 200 mcg PO QAM 09/13/19 08/05/22 History mcg tablet ascorbic acid (vitamin C) 500 mg 500 mg PO DAILY 04/24/20 08/05/22 History tablet (Vitamin C) ferrous sulfate 325 mg (65 mg 325 mg PO 3XWK 04/24/20 08/05/22 History iron) tablet levothyroxine 137 mcg tablet 137 mcg PO QAM 04/24/20 08/05/22 History (Synthroid) metformin 500 mg tablet,extended 500 mg PO AMHS 04/24/20 08/05/22 History release 24 hr ondansetron 4 mg disintegrating 4 mg PO Q8H PRN Nausea 04/24/20 08/05/22 History tablet ezetimibe 10 mg tablet 10 mg PO DAILY 12/31/20 08/05/22 History apixaban 5 mg tablet (Eliquis) 5 mg PO BID 04/19/21 08/05/22 History clopidogrel 75 mg tablet 75 mg PO DAILY 04/19/21 08/05/22 History oxycodone 5 mg tablet 5 mg PO Q6H PRN pain #12 tabs 02/24/22 08/05/22 Rx acetaminophen 500 mg tablet 1,000 mg PO Q6H PRN Fever Or Pain 07/31/22 08/05/22 History dulaglutide 1.5 mg/0.5 mL 1.5 mg subcut WK 07/31/22 08/05/22 History subcutaneous pen injector (Trulicity) duloxetine 60 mg capsule,delayed 60 mg PO QAM 07/31/22 08/05/22 History release finasteride 5 mg tablet 5 mg PO QAM 07/31/22 08/05/22 History gabapentin 300 mg capsule 300 mg PO HS 07/31/22 08/05/22 History meclizine 25 mg tablet 12.5 - 25 mg PO Q6 PRN Dizziness 07/31/22 08/05/22 History metoprolol succinate 50 mg 50 mg PO AMHS 07/31/22 08/05/22 History tablet,extended release 24 hr pantoprazole 40 mg tablet,delayed 40 mg PO AMHS 07/31/22 08/05/22 History release prednisone 5 mg tablet 5 mg PO QAM 07/31/22 08/05/22 History tramadol 50 mg tablet 50 mg PO DAILY PRN mod-severe pain 07/31/22 08/05/22 History L.acidop,casei,lactis,rham-B.lact,augusto 2 cap PO DAILY 7 days #14 caps 08/02/22 08/05/22 Rx 625 mg (10 billion cell) capsule (Advanced Probiotic) promethazine 12.5 mg rectal 12.5 mg [place] DAILY #12 ea 08/02/22 08/05/22 Rx suppository tamsulosin 0.4 mg capsule 0.4 mg PO QAM 08/05/22 08/05/22 History Past Med/Surg History Medical History CAD (coronary artery disease) s/p PCI to LAD due to atretic WHITAKER graft CAD (coronary artery disease) Diabetes Diabetes HTN (hypertension) Hyperlipidemia Hypothyroidism associated with surgical procedure Kidney disease Obesity (BMI 30.0-34.9) Thyroid cancer thyroidectomy in 2001 Thyroidectomy (02/21/13) Surgical History Aortocoronary bypass status 03/2014 : 2x CABG at [facility] History of cardiac cath History of thyroidectomy Stented coronary artery Occluded Staphenous Vein Graft. NIMESH x's 4 Social History Smoking Status: Never smoker Second Hand Exposure: Yes ( smoker); Hx Alcohol Use: No Hx Substance Use: No Preferred Language: Pashto Communication Ability: Effective Operating Theatre Technician Required: No Beliefs That Will Affect Care: None marital status: Current Living Situation: Spouse and Family Current Living Situation Comment: House current occupation: Retired Feels Safe at Home: Yes Assistive Devices: Contacts Review of Systems Review of Systems: As per HPI, all other systems reviewed and negative Physical Exam Physical Exam: GENERAL: Comfortable, pleasant, no respiratory distress SKIN: Normal color, warm HEENT: [place] palpebral conjunctivae, no ptosis, dry buccal mucosa, nasal cannula in place NECK : Supple, no tenderness CHEST : Decreased breath sounds, no tenderness HEART : RRR, no obvious murmurs ABDOMEN: Some distention, nontender EXTREMITIES : No LE swelling/tenderness, no other conspicuous deformities noted NEUROLOGIC : Coherent, no facial asymmetry, no other gross focality Results & Data Results & Data Vital Signs (Past 12 Hours) Vital Signs Temp Pulse Pulse Resp BP BP Pulse Ox 08/06/22 03:00 71 18 116/62 89 L 08/06/22 02:00 75 18 112/74 90 08/06/22 01:00 75 18 115/77 94 08/06/22 00:00 84 18 124/84 94 08/06/22 01:22 81 08/05/22 23:14 87 20 98 08/05/22 22:16 37.2 C 105 H 18 100/64 93 O2 Del Method 08/06/22 03:00 08/06/22 02:00 08/06/22 01:00 08/06/22 00:00 Room Air 08/06/22 01:22 08/05/22 23:14 Room Air 08/05/22 22:16 Room Air Laboratory Results Laboratory Results WBC 2.92 K/ul (4.8-10.8) L 08/05/22 22:41 RBC 5.48 M/uL (4.70-6.10) 08/05/22 22:41 Hgb 16.1 g/dl (14.0-18.0) 08/05/22 22:41 Hct 45.5 % (42.0-52.0) 08/05/22 22:41 MCV 83.0 fL (80.0-100.0) 08/05/22 22:41 MCH 29.4 pg (25.0-34.0) 08/05/22 22:41 MCHC 35.4 g/dL (32.0-36.0) 08/05/22 22: RDW Std Deviation 38.1 fL (36.4-46.3) 08/05/22 22: RDW Coeff of Cuco 12.5 % (11.5-14.5) 08/05/22 22:41 Plt Count 221 K/uL (130-400) 08/05/22 22:41 MPV 9.6 fL (9.4-12.4) 08/05/22 22:41 Immature Gran % (Auto) 0.7 % 08/05/22 22:41 Neut % (Auto) 80.1 % 08/05/22 22:41 Lymph % (Auto) 8.2 % 08/05/22 22:41 [place] % (Auto) 11.0 % 08/05/22 22:41 Eos % (Auto) 0.0 % 08/05/22 22:41 Baso % (Auto) 0.0 % 08/05/22 22:41 Neut # (Auto) 2.34 K/uL (1.40-6.50) 08/05/22 22:41 Lymph # (Auto) 0.24 K/uL (1.2-3.4) L 08/05/22 22:41 [place] # (Auto) 0.32 K/uL (0.11-0.59) 08/05/22 22:41 Eos # (Auto) 0.00 K/uL (0-0.50) 08/05/22 22:41 Baso # (Auto) 0.00 K/uL (0-0.2) 08/05/22 22:41 Immature Gran # (Auto) 0.02 K/uL (0.01-0.20) 08/05/22 22:41 ABG pH 7.43 (7.35-7.45) 08/06/22 03:47 ABG pCO2 33 mmHg (35-46) L 08/06/22 03:47 ABG pO2 74 mmHg (80-95) L 08/06/22 03:47 ABG HCO3 22 mmol/L (19-24) 08/06/22 03:47 ABG O2 Saturation 97.3 % (90-95) H 08/06/22 03:47 ABG Base Excess -1.7 mEq/L (-9-1.8) 08/06/22 03:47 Sodium 135 mmol/L (136-145) L 08/05/22 22:41 Potassium 3.3 mmol/L (3.5-5.1) L 08/05/22 22:41 Chloride 100 mmol/L (98-107) 08/05/22 22:41 Carbon Dioxide 22 mmol/L (21-32) 08/05/22 22:41 Anion Gap 13 (3-11) H 08/05/22 22:41 BUN 14 mg/dl (6-23) 08/05/22 22:41 Creatinine 1.20 mg/dl (0.6-1.4) 08/05/22 22:41 Est Cr Clr Drug Dosing 60.3 ml/min 08/05/22 22:41 Est GFR ( Amer) 73.1 ml/min 08/05/22 22:41 Est GFR (Non-Af Amer) 63.1 ml/min 08/05/22 22:41 BUN/Creatinine Ratio 11.7 (10-20) 08/05/22 22:41 Glucose 111 mg/dl (70-99(Fasting)) H 08/05/22 22:41 Lactate 0.8 mmol/L (0.4-2.0) 08/06/22 03:47 Calcium 7.9 mg/dl (8.6-10.3) L 08/05/22 22:41 Magnesium 1.8 mg/dl (1.7-2.4) 08/05/22 22:41 Total Bilirubin 1.0 mg/dl (0.2-1.0) 08/05/22 22:41 AST 22 U/L (13-39) 08/05/22 22:41 ALT 13 U/L (7-52) 08/05/22 22:41 Alkaline Phosphatase 48 U/L (34-104) 08/05/22 22:41 Total Creatine Kinase 46 U/L (30-223) 08/05/22 22:41 Troponin I High Sens 9.5 pg/ml (0-20) 08/06/22 00:20 Total Protein 6.8 gm/dl (6.0-8.3) 08/05/22 22:41 Albumin 3.7 gm/dl (3.4-5.0) 08/05/22 22:41 Globulin 3.1 gm/dl (2.5-4.0) 08/05/22 22:41 Albumin/Globulin Ratio 1.2 (0.9-2) 08/05/22 22:41 Lipase 41 U/L (11-82) 08/06/22 00:20 Urine Color Yellow 08/06/22 00:46 Urine Appearance Clear (Clear) 08/06/22 00:46 Urine pH 6.0 (4.5-7.5) 08/06/22 00:46 Ur Specific [place] > 1.045 (1.000-1.030) H 08/06/22 00:46 Urine Protein 2+ (Negative) H 08/06/22 00:46 Urine Glucose (UA) Negative (Negative) 08/06/22 00:46 Urine Ketones 1+ (Negative) H 08/06/22 00:46 Urine Blood Negative (Negative) 08/06/22 00:46 Urine Nitrite Negative (Negative) 08/06/22 00:46 Urine Bilirubin Negative (Negative) 08/06/22 00:46 Urine Urobilinogen Negative (Negative) 08/06/22 00:46 Ur Leukocyte Esterase Negative (Negative) 08/06/22 00:46 Urine WBC (Auto) 1-5 /hpf (0-5) 08/06/22 00:46 Urine RBC (Auto) 0-4 /hpf (0-4) 08/06/22 00:46 U Hyaline Cast (Auto) 5-10 /lpf (0-5) H 08/06/22 00:46 U Epithel Cells (Auto) 20-30 /lpf (0-5) H 08/06/22 00:46 Urine Bacteria (Auto) Negative (Negative) 08/06/22 00:46 SARS-CoV-2, RNA, NAAT POSITIVE (NEGATIVE) A* 08/05/22 00:00 Impressions Abdomen/Pelvis CT 08/05/22 22:20 Exam(s): CT ABDOMEN + PELVIS With Contrast IV Amt: 100 ml optiray 320 EXAM: CT Abdomen and Pelvis With Intravenous Contrast CLINICAL HISTORY: Reason for exam: n/v, weakness. TECHNIQUE: Axial computed tomography images of the abdomen and pelvis with intravenous contrast. CTDI is 16.9 mGy and DLP is 744.97 mGy-cm. Automated exposure control was utilized for the study. A dose lowering technique was utilized adhering to the principles of ALARA. CONTRAST: Patient received 100 ml optiray 320 of IV contrast COMPARISON: Prior 03/03/2020 CT chest and 02/24/2022 CT abdomen and pelvis. CTA chest also today FINDINGS: Lung bases: Unremarkable. No mass. No consolidation. ABDOMEN: Liver: Unremarkable. No mass. Gallbladder and bile ducts: Cholecystectomy. No ductal dilation. Pancreas: Unremarkable. No mass. No ductal dilation. Spleen: Unremarkable. No splenomegaly. Adrenals: Unremarkable. No mass. Kidneys and ureters: Bilateral renal low-density lesions, likely cysts. Nonobstructing bilateral renal calculi. No hydronephrosis. Stomach and bowel: Colonic diverticulosis. No obstruction. No mucosal thickening. PELVIS: Appendix: Normal appendix. Bladder: Unremarkable. No mass. Reproductive: Unremarkable as visualized. ABDOMEN and PELVIS: Intraperitoneal space: Unremarkable. No free air. No significant fluid collection. Bones/joints: Please see separate CTA chest also today for thoracic findings. No acute fracture. No dislocation. Soft tissues: Unremarkable. Vasculature: Moderate aortoiliac calcifications. No abdominal aortic aneurysm. Lymph nodes: Unremarkable. No enlarged lymph nodes. IMPRESSION: 1. No evidence of acute abnormality. 2. Nonobstructing bilateral renal calculi. No hydronephrosis. 3. Colonic diverticulosis. Electronically signed by: Willam Baptiste M.D. 08/06/22 02:24 AM Chest CTA 08/05/22 23:11 Exam(s): CTA CHEST IV Amt: 100 ml optiray 320 EXAM: CT Angiography Chest With Intravenous Contrast CLINICAL HISTORY: Reason for exam: PE. History of sarcoidosis based on the prior chest CT report. TECHNIQUE: Axial computed tomographic angiography images of the chest with intravenous contrast. CTDI is 16.9 mGy and DLP is 744.97 mGy-cm. Automated exposure control was utilized for the study. A dose lowering technique was utilized adhering to the principles of ALARA. MIP reconstructed images were created and reviewed. COMPARISON: Prior 03/03/2020 CT chest and 02/24/2022 CT abdomen and pelvis. CT abdomen and pelvis also today. FINDINGS: Pulmonary arteries: Unremarkable. No pulmonary embolism. Aorta: No acute findings. No thoracic aortic aneurysm. Lungs: Bibasilar atelectasis or mild airspace disease. Scattered patchy areas of groundglass opacities bilaterally are new since the prior. Stable 6 mm right lower lobe peripheral nodule series 4 image 176. Similar mild peribronchial thickening. Pleural space: Small bilateral pleural effusions. New since the prior. No pneumothorax. Heart: Coronary calcifications. CABG. No significant pericardial effusion. No evidence of RV dysfunction. Mediastinum: See below. Bones/joints: Median sternotomy wires. No acute fracture. No dislocation. Soft tissues: Unremarkable. Lymph nodes: Mediastinal and bilateral hilar adenopathy similar to the prior. Right paratracheal node 2 cm short axis. IMPRESSION: 1. No evidence of pulmonary embolism. 2. Bibasilar atelectasis or mild airspace disease. Scattered patchy areas of groundglass opacities bilaterally are new since the prior. May represent infectious or inflammatory process. 3. Mediastinal and bilateral hilar adenopathy similar to the prior. Right paratracheal node 2 cm short axis. 4. Small bilateral pleural effusions. New since the prior. 5. Stable 6 mm right lower lobe peripheral nodule. Electronically signed by: Willam Baptiste M.D. 08/06/22 02:09 AM Diagnostic Findings EKG as per my interpretation : Rate 95, NSR, LAD, LSB, T wave abnormalities in ferior leads Code Status & VTE Plan VTE Prophylaxis Plan VTE Prophylaxis will be ordered: Yes
[2022-08-06 04:04] LABS: Allen Test Pos (Pos)
[2022-08-06 04:15] LABS: Thyroid Stimulating Hormone 0.248 uIu/ml (0.300-4.500)
[2022-08-06 04:51] LABS: T4 Free Thyroxine 1.42 ng/dl (0.61-1.60)
[2022-08-06] MEDS ORDERED: DEXTROSE 50% 50 ML SYRINGE IV PRN (06:04)
[2022-08-06] MEDS ORDERED: CARBOHYDRATES FOR HYPOGLYCEMIA PO PRN (06:04)
[2022-08-06] MEDS ORDERED: GLUCAGON FOR INJ 1 MG VIAL SQ PRN (06:04)
[2022-08-06] MEDS ORDERED: ACETAMINOPHEN 325 MG TAB PO PRN (06:04)
[2022-08-06] MEDS ORDERED: oxyCODONE HCL IR 5 MG TAB (IMMEDIATE RELEASE) PO PRN (06:04)
[2022-08-06] MEDS ORDERED: NITROGLYCERIN SL 0.4 MG/TAB TAB SL PRN (06:04)
[2022-08-06] MEDS ORDERED: GLUCOSE 10 TAB/TUBE PO PRN (06:04)
[2022-08-06] MEDS ORDERED: GLUCOSE 40% GEL 15 GM TUBE PO PRN (06:04)
[2022-08-06] MEDS: LEVOTHYROXINE SODIUM 137 MCG TABLET PO SCH (07:23)
--- NOTE | 2022-08-06 07:44 | XRay Report ---
XR chest 1V portable HISTORY: weakness COMPARISON: Chest 07/31/2022. FINDINGS: There are low lung volumes. No pneumothorax. Trace bilateral pleural effusions are noted. T he cardiac silhouette is borderline enlarged. This remains unchanged. There are poststernotomy change s and a prior cholecystectomy. Bibasilar linear densities are new from the prior study. The upper cedric g zones are clear. No evidence for pulmonary edema. IMPRESSION: 1. There are new bibasilar linear densities. This may represent subsegmental atelectasis or a pneumon ia. 2. Trace bilateral pleural effusions. ACT 112: Negative or not required by law. Electronically signed by: Elvin Scherer M.D. 08/06/2022 7:43 AM
[2022-08-06 07:55] LABS: Hematocrit (blood only) 41.5 % (42.0-52.0); Hemoglobin 14.6 g/dl (14.0-18.0); Immature Granulocytes # (auto) 0.02 K/uL (0.01-0.20); Immature Granulocytes % (auto) 0.9 %; Lymphocytes # (auto) 0.21 K/uL (1.2-3.4); Lymphocytes % (auto) 9.5 %; Mean Corpuscular Hemoglobin 29.4 pg (25.0-34.0); Mean Corpuscular Hgb Conc 35.2 g/dL (32.0-36.0); Mean Corpuscular Volume 83.5 fL (80.0-100.0); Mean Platelet Volume 9.8 fL (9.4-12.4); Monocytes # (auto) 0.34 K/uL (0.11-0.59); Monocytes % (auto) 15.4 %; Neutrophils # (auto) 1.64 K/uL (1.40-6.50); Neutrophils % (auto) 74.2 %; Platelet Count 183 K/uL (130-400); RDW Coefficient of Variation 12.7 % (11.5-14.5); RDW Standard Deviation 38.5 fL (36.4-46.3); Red Blood Count 4.97 M/uL (4.70-6.10); White Blood Count 2.21 K/ul (4.8-10.8)
[2022-08-06] MEDS: INSULIN ASPART PER UNIT CHARGE SC SCH ×4 (08:09→20:51)
[2022-08-06 08:10] LABS: Calcium 6.9 mg/dl (8.6-10.3); Creatinine Clr Calc Pharmacy 73.6 ml/min; Est GFR (African American) 91.1 ml/min; Est GFR (Non-African American) 78.6 ml/min; Potassium 3.5 mmol/L (3.5-5.1)
--- NOTE | 2022-08-06 08:32 | Electrocardiogram Report ---
Test Reason : Blood Pressure : / mmHG Vent. Rate : 095 BPM Atrial Rate : 095 BPM P-R Int : 130 ms QRS Dur : 086 ms QT Int : 356 ms P-R-T Axes : 036 -50 013 degrees QTc Int : 447 ms Normal sinus rhythm Left axis deviation Poor R wave progression, consider anterior IL vs. lead placement vs. LVH Abnormal ECG When compared with ECG of 31-JUL-2022 18:28, Criteria for Inferior infarct no longer present Nonspecific T wave abnormality no longer evident in Anterior leads Confirmed by Yaw Randolph ([id number]) on 08/06/2022 8:31:31 AM Referred By: REFERRED SELF Confirmed By:Yaw Randolph
[2022-08-06] MEDS: PIPERACILLIN/TAZOBACTAM 3.375 GM in DEXTROSE 5% 100 ML IV SCH ×2 (09:19→17:29)
[2022-08-06] MEDS: APIXABAN 5 MG TABLET PO SCH ×2 (09:22→20:46)
[2022-08-06] MEDS: TAMSULOSIN HCL 0.4 MG CAP PO SCH (09:22)
[2022-08-06] MEDS: METOPROLOL SUCC 50MG EXT REL TAB PO SCH ×2 (09:22→20:45)
[2022-08-06] MEDS: DULoxetine HCL 60 MG CAP PO SCH (09:23)
[2022-08-06] MEDS: CYANOCOBALAMIN (B-12) 100 MCG TABLET PO SCH (09:23)
[2022-08-06] MEDS: FINASTERIDE 5 MG TAB PO SCH (09:24)
[2022-08-06] MEDS: FERROUS SULFATE 325 MG TAB PO SCH (09:24)
[2022-08-06] MEDS: CLOPIDOGREL BISULFATE 75 MG TAB PO SCH (09:24)
[2022-08-06] MEDS: EZETIMIBE 10 MG TABLET PO SCH (09:24)
[2022-08-06] MEDS: PANTOprazole 40 MG TAB PO SCH ×2 (09:24→20:46)
[2022-08-06] MEDS: LANTUS PER UNIT CHARGE SQ SCH (09:32)
--- NOTE | 2022-08-06 14:17 | Hospitalist Progress Note ---
Date of Service August 06, 2022 Assessment & Plan (1) Acute hypoxemic respiratory failure: (2) Pneumonia due to COVID-19 virus: (3) Sarcoidosis: (4) Paroxysmal atrial fibrillation: (5) Diabetes mellitus type 2 in nonobese: (6) Postsurgical hypothyroidism: Plan 66-year-old male with multiple medical problems as below presented to ED with worsening cough productive of green phlegm. Patient was recently admitted 08/01- 08/02 for COVID-19 symptoms but had worsening symptoms and hence came to the ED. CT chest 1. No evidence of pulmonary embolism. 2. Bibasilar atelectasis or mild airspace disease. Scattered patchy areas of groundglass opacities bilaterally are new since the prior. May represent infectious or inflammatory process. 3. Mediastinal and bilateral hilar adenopathy similar to the prior.Right paratracheal node 2 cm short axis. 4. Small bilateral pleural effusions. New since the prior. 5. Stable 6 mm right lower lobe peripheral nodule. CT A/P 1. No evidence of acute abnormality. 2. Nonobstructing bilateral renal calculi. No hydronephrosis. 3. Colonic diverticulosis. COVID 19 PNA- Hypoxemia on admission resolved. Immunosuppressed on chronic p rednisone for sarcoidosis. - On decadron, remdesevir, empiric antibiotics for possible aspiration- continue for now. Sarcoidosis/immunocompromised- on chronic pred 5 mg daily H/o CAD status post CABG/stent- on ASA, plavix, betablocker, statin PAF on Eliquis- currently NSR HTN- BP stable. H/o thyroid cancer status post surgery/radioablation with postsurgical hypothyroidism- on synthroid. TSH 0.24, fT4 normal- likely related to acute illness. Follow up TSH as OP once patient recovers DM2 HA1c of 6.9 last July 2022- On lantus, SSI. OHA on hold. GERD- on PPI Hypokalemia secondary to emesis- resolved BPH- on flomax and proscar Dispo- Pending medical stability DVT prophylaxis. Eliquis Full code Contact: Unable to reach over the phone to give an update. Libertad Hogan, contact #[phone]. Admission and Anticipated Discharge Date Admission Date: August 06, 2022 Subjective Patient was seen and examined at bedside. Complains of cough and difficulty expectorating. Denies shortness of breath nausea vomiting. No fever or chills. His [id number] now has recovered from COVID-19, still with COVID-19 and recovering at home Review of Systems Review of Systems: All systems reviewed & are unremarkable except as noted in Subjective Physical Exam Physical Exam: General: Sick looking, lying comfortably in bed, not in distress, on NC Chest: Diminished with fair breath bilaterally CVS: Regular rate and rhythm, normal heart sounds, no murmur Abdomen: Soft, non tender, not distended, normal bowel sounds Neuro: Awake, alert, oriented, conversing well, non focal Extremities: No cyanosis, clubbing or edema Results & Data Results & Data Vital Signs (Past 12 Hours) Vital Signs Temp Pulse Pulse Resp BP BP Pulse Ox 08/06/22 12:21 36.8 C 77 18 129/84 93 08/06/22 10:49 08/06/22 08:14 37.5 C 78 20 100/63 94 08/06/22 07:32 79 08/06/22 06:08 08/06/22 06:08 37.0 C 70 20 113/74 96 08/06/22 05:43 71 18 112/74 94 08/06/22 03:00 71 18 116/62 89 L O2 Del Method O2 Flow Rate 08/06/22 12:21 Room Air 08/06/22 10:49 Nasal Cannula 2 08/06/22 08:14 Nasal Cannula 2 08/06/22 07:32 08/06/22 06:08 Nasal Cannula 2 08/06/22 06:08 Room Air 2 08/06/22 05:43 Nasal Cannula 2 08/06/22 03:00 Laboratory Results Short CBC 08/05/22 08/06/22 Range/Units 22:41 07:21 WBC 2.92 L 2.21 L (4.8-10.8) K/ul Hgb 16.1 14.6 (14.0-18.0) g/dl Hct 45.5 41.5 L (42.0-52.0) % Plt Count 221 183 (130-400) K/uL BMP 08/05/22 08/06/22 22:41 07:21 Sodium 135 L 137 Potassium 3.3 L 3.5 Chloride 100 105 Carbon Dioxide 22 22 BUN 14 13 Creatinine 1.20 1.00 Glucose 111 H 92 Calcium 7.9 L 6.9 L Cardiac Enzymes 08/05/22 Range/Units 22:41 Total Creatine Kinase 46 (30-223) U/L Liver Function 08/05/22 Range/Units 22:41 Total Bilirubin 1.0 (0.2-1.0) mg/dl AST 22 (13-39) U/L ALT 13 (7-52) U/L Alkaline Phosphatase 48 (34-104) U/L Albumin 3.7 (3.4-5.0) gm/dl Urine 08/06/22 Range/Units 00:46 Urine Color Yellow Urine Appearance Clear (Clear) Urine pH 6.0 (4.5-7.5) Ur Specific [place] > 1.045 H (1.000-1.030) Urine Protein 2+ H (Negative) Urine Glucose (UA) Negative (Negative) Medications Administered Current Inpatient Medications Acetaminophen (Acetaminophen 325 Mg Tab) 650 mg PO Q4H PRN PRN Reason: Pain or Fever Stop: 09/05/22 06:03 Alprazolam (Alprazolam 0.5 Mg Tablet) 0.5 mg PO HS ANA Stop: 09/05/22 20:59 Apixaban (Apixaban 5 Mg Tablet) 5 mg PO BID ANA Stop: 09/05/22 08:59 Last Admin: 08/06/22 09:22 Dose: 5 mg Atorvastatin Calcium (Atorvastatin 40 Mg Tab) 80 mg PO HS ANA Stop: 09/05/22 20:59 Clopidogrel Bisulfate (Clopidogrel Bisulfate 75 Mg Tab) 75 mg PO DAILY ANA Stop: 09/05/22 08:59 Last Admin: 08/06/22 09:24 Dose: 75 mg Cyanocobalamin (Cyanocobalamin (B-12) 100 Mcg Tablet) 200 mcg PO QAM ANA Stop: 09/05/22 08:59 Last Admin: 08/06/22 09:23 Dose: 200 mcg Dextrose (Dextrose 50% 50 Ml Syringe) 25 - 50 ml IV UD PRN; Protocol PRN Reason: Hypoglycemia Protocol Stop: 09/05/22 06:03 Duloxetine HCl (Duloxetine Hcl 60 Mg Cap) 60 mg PO QAM ANA Stop: 09/05/22 08:59 Last Admin: 08/06/22 09:23 Dose: 60 mg Ezetimibe (Ezetimibe 10 Mg Tablet) 10 mg PO DAILY ANA Stop: 09/05/22 08:59 Last Admin: 08/06/22 09:24 Dose: 10 mg Ferrous Sulfate (Ferrous Sulfate 325 Mg Tab) 325 mg PO MoWeFr@0900 ANA Stop: 09/05/22 08:59 Last Admin: 08/06/22 09:24 Dose: 325 mg Finasteride (Finasteride 5 Mg Tab) 5 mg PO QAM ANA Stop: 09/05/22 08:59 Last Admin: 08/06/22 09:24 Dose: 5 mg Gabapentin (Gabapentin 300 Mg Cap) 300 mg PO HS [facility] Stop: 09/05/22 20:59 Glucagon (Glucagon For Inj 1 Mg Vial) 1 mg SQ UD PRN; Protocol PRN Reason: Hypoglycemia Protocol Stop: 09/05/22 06:03 Glucose (Glucose 10 Tab/Tube) 4 - 8 tab PO UD PRN; Protocol PRN Reason: Hypoglycemia Treatment Stop: 09/05/22 06:03 Glucose (Glucose 40% Gel 15 Gm Tube) 15 - 30 gm PO UD PRN; Protocol PRN Reason: Hypoglycemia Protocol Stop: 09/05/22 06:03 Potassium Chloride/Sodium Chloride (Normal Saline W/20 Meq Kcl) 20 meq in 1,000 mls @ 80 mls/hr IV .[id number] STA; Protocol Stop: 08/06/22 15:32 Last Admin: 08/06/22 06:43 Dose: 80 mls/hr Dexamethasone 6 mg/ Syringe 1.5 mls @ 1 mls/min IV DAILY ANA Stop: 09/06/22 08:59 Promethazine HCl 12.5 mg/ (Sodium Chloride) 50.5 mls @ 202 mls/hr IV Q6H PRN PRN Reason: Nausea And Vomiting Stop: 09/05/22 03:24 Remdesivir 100 mg/ Sodium (Chloride) 250 mls @ 250 mls/hr IV Q24H ANA Stop: 08/10/22 12:59 Piperacillin Sod/Tazobactam (Sod 3.375 gm/ Dextrose) 115 mls @ 28.75 mls/hr IV Q8H ANA; Protocol Stop: 08/13/22 08:59 Last Infusion: 08/06/22 13:30 Dose: Infused Insulin Aspart (Insulin Aspart Per Unit Charge) 0 units SC ACHS [facility] Stop: 09/05/22 06:03 Last Admin: 08/06/22 12:33 Dose: 2 units Insulin Glargine (Lantus Per Unit Charge) 5 units SQ DAILY [facility] Stop: 09/05/22 08:59 Last Admin: 08/06/22 09:32 Dose: 5 units Levothyroxine Sodium (Levothyroxine Sodium 137 Mcg Tablet) 137 mcg PO DAILYBB [facility] Stop: 09/05/22 06:29 Last Admin: 08/06/22 07:23 Dose: 137 mcg Metoprolol Succinate (Metoprolol Succ 50mg Ext Rel Tab) 50 mg PO [facility] Stop: 09/05/22 08:59 Last Admin: 08/06/22 09:22 Dose: 50 mg Miscellaneous (Icosapent Ethyl [Vascepa] ~ Order Awaiting Action) 1 each N/A QS [facility] Stop: 09/05/22 07:59 Last Admin: 08/06/22 09:01 Dose: Not Given Miscellaneous (Carbohydrates For Hypoglycemia ) 15 - 30 gm PO UD PRN PRN Reason: Hypoglycemia Protocol Stop: 09/05/22 06:03 Nitroglycerin (Nitroglycerin Sl 0.4 Mg/Tab Tab) 0.4 mg SL UD PRN PRN Reason: Chest Pain Stop: 09/05/22 06:03 Oxycodone HCl (Oxycodone Hcl Ir 5 Mg Tab (Immediate Release)) 5 - 10 mg PO QID PRN PRN Reason: Pain Stop: 08/20/22 06:03 Pantoprazole Sodium (Pantoprazole 40 Mg Tab) 40 mg PO [facility] Stop: 09/05/22 08:59 Last Admin: 08/06/22 09:24 Dose: 40 mg Tamsulosin HCl (Tamsulosin Hcl 0.4 Mg Cap) [facility] [place] [place] Stop: 09/05/22 08:59 Last Admin: 08/06/22 09:22 Dose: 0.4 mg
[2022-08-06] MEDS: LOPERAMIDE HCL 2 MG CAP PO PRN (18:12)
[2022-08-06] MEDS: guaiFENesin 600 MG TABCR PO SCH (20:45)
[2022-08-06] MEDS: GABAPENTIN 300 MG CAP PO SCH (20:45)
[2022-08-06] MEDS: ATORVASTATIN 40 MG TAB PO SCH (20:46)
[2022-08-06] MEDS: BENZONATATE 100 MG CAPSULE PO SCH (20:46)
[2022-08-06] MEDS: ALPRAZolam 0.5 MG TABLET PO SCH (20:52)
[2022-08-07] MEDS: PIPERACILLIN/TAZOBACTAM 3.375 GM in DEXTROSE 5% 100 ML IV SCH ×2 (01:08→09:45)
[2022-08-07] MEDS: LEVOTHYROXINE SODIUM 137 MCG TABLET PO SCH (05:59)
[2022-08-07 06:57] LABS: Hematocrit (blood only) 37.9 % (42.0-52.0); Hemoglobin 13.2 g/dl (14.0-18.0); Mean Corpuscular Hemoglobin 29.3 pg (25.0-34.0); Mean Corpuscular Hgb Conc 34.8 g/dL (32.0-36.0); Mean Platelet Volume 9.5 fL (9.4-12.4); Platelet Count 195 K/uL (130-400); RDW Coefficient of Variation 12.5 % (11.5-14.5); RDW Standard Deviation 38.5 fL (36.4-46.3); Red Blood Count 4.51 M/uL (4.70-6.10); White Blood Count 2.14 K/ul (4.8-10.8)
[2022-08-07 07:25] LABS: Albumin Globulin Ratio 1.4 (0.9-2); Albumin Level 3.1 gm/dl (3.4-5.0); BUN Creatinine Ratio 13.4 (10-20); Bilirubin,Total 0.7 mg/dl (0.2-1.0); C Reactive Protein 6.56 mg/dl (0-0.5); Calcium 6.5 mg/dl (8.6-10.3); Creatinine Clr Calc Pharmacy 65.8 ml/min; Est GFR (African American) 79.5 ml/min; Est GFR (Non-African American) 68.6 ml/min; Globulin 2.2 gm/dl (2.5-4.0); Phosphorus 2.1 mg/dl (2.5-4.9); Potassium 3.6 mmol/L (3.5-5.1); Total Protein 5.3 gm/dl (6.0-8.3)
[2022-08-07] MEDS: guaiFENesin 600 MG TABCR PO SCH (09:38)
[2022-08-07] MEDS: PANTOprazole 40 MG TAB PO SCH ×2 (09:38→21:11)
[2022-08-07] MEDS: TAMSULOSIN HCL 0.4 MG CAP PO SCH (09:38)
[2022-08-07] MEDS: BENZONATATE 100 MG CAPSULE PO SCH ×3 (09:38→21:09)
[2022-08-07] MEDS: APIXABAN 5 MG TABLET PO SCH ×2 (09:38→21:07)
[2022-08-07] MEDS: METOPROLOL SUCC 50MG EXT REL TAB PO SCH ×2 (09:38→21:11)
[2022-08-07] MEDS: EZETIMIBE 10 MG TABLET PO SCH (09:39)
[2022-08-07] MEDS: CYANOCOBALAMIN (B-12) 100 MCG TABLET PO SCH (09:39)
[2022-08-07] MEDS: FINASTERIDE 5 MG TAB PO SCH (09:39)
[2022-08-07] MEDS: CLOPIDOGREL BISULFATE 75 MG TAB PO SCH (09:41)
[2022-08-07] MEDS: DULoxetine HCL 60 MG CAP PO SCH (09:41)
[2022-08-07] MEDS: dexAMETHasone 6 MG in SYRINGE 0 ML IV SCH (09:45)
[2022-08-07] MEDS: LANTUS PER UNIT CHARGE SQ SCH (09:58)
[2022-08-07] MEDS: INSULIN ASPART PER UNIT CHARGE SC SCH ×4 (09:58→20:30)
[2022-08-07] MEDS: guaiFENesin/DEXTROM SYRUP 100MG/10MG 5ML UDC PO SCH ×3 (10:30→23:01)
[2022-08-07] MEDS ORDERED: METOCLOPRAMIDE HCL INJ 5 MG/ML 2 ML VIAL IV PRN (11:15)
--- NOTE | 2022-08-07 11:17 | Hospitalist Progress Note ---
Date of Service August 07, 2022 Assessment & Plan (1) Acute hypoxemic respiratory failure: (2) Pneumonia due to COVID-19 virus: (3) Sarcoidosis: (4) Paroxysmal atrial fibrillation: (5) Diabetes mellitus type 2 in nonobese: (6) Postsurgical hypothyroidism: Plan 66-year-old male with multiple medical problems as below presented to ED with worsening cough productive of green phlegm. Patient was recently admitted 08/01- 08/02 for COVID-19 symptoms but had worsening symptoms and hence came to the ED. CT chest 1. No evidence of pulmonary embolism. 2. Bibasilar atelectasis or mild airspace disease. Scattered patchy areas of groundglass opacities bilaterally are new since the prior. May represent infectious or inflammatory process. 3. Mediastinal and bilateral hilar adenopathy similar to the prior.Right paratracheal node 2 cm short axis. 4. Small bilateral pleural effusions. New since the prior. 5. Stable 6 mm right lower lobe peripheral nodule. CT A/P 1. No evidence of acute abnormality. 2. Nonobstructing bilateral renal calculi. No hydronephrosis. 3. Colonic diverticulosis. COVID 19 PNA- Hypoxemia on admission resolved. Immunosuppressed on chronic p rednisone for sarcoidosis. - On decadron, remdesevir, empiric antibiotics for possible aspiration- continue for now. Deescalate zosyn to unasyn. Continue antitussive, nebs, IS. -Labs: leukopenia, procal negative, CRP elevated at 6.5 Sarcoidosis/immunocompromised- on chronic pred 5 mg daily Intermittent vomiting and diarrhea at home for the past 2 months with early satiety-concern for gastroparesis given his diabetes but DM is well controlled. Recommended outpatient GI for endoscopy, followed by gastric emptying study if unremarkable. He is COVID-positive status would preclude procedures inhouse. Symptomatic treatment for now. Check for Cdiff if diarrhea. Reglan and imodium prn. H/o CAD status post CABG/stent- on ASA, plavix, betablocker, statin PAF on Eliquis- currently NSR HTN- BP stable. H/o thyroid cancer status post surgery/radioablation with postsurgical hypothyroidism- on synthroid. TSH 0.24, fT4 normal- likely related to acute illness. Follow up TSH as OP once patient recovers DM2 HA1c of 6.9 last July 2022- On lantus, SSI. OHA on hold. GERD- on PPI Hypokalemia secondary to emesis- resolved BPH- on flomax and proscar Hypophosphatemia-repleted, recheck in a.m. Hypocalcemia-albumin mildly low. Calcium supplementation. Recheck in a.m. Dispo- Pending medical stability DVT prophylaxis. [place]shan Full code Contact: Libertad Cuetolamont, contact #[phone]. Admission and Anticipated Discharge Date Admission Date: August 06, 2022 Subjective Patient was seen and examined at bedside. States he did have a good night due to cough. Still with problematic cough. Denies any phlegm. Also had diarrhea yesterday and required Imodium, no bowel movement since. No nausea or vomiting here. Tolerating oral intake without issues. States he has been having episodes of vomiting and diarrhea simultaneously couple times a week for the past 2 months and has been following up with PCP, no abdominal pain or fever but has early satiety. He has not seen GI. He has colonoscopy scheduled for October. Review of Systems Review of Systems: All systems reviewed & are unremarkable except as noted in Subjective Physical Exam Physical Exam: General: Sick looking, lying comfortably in bed, not in distress, intermittently on NC, coughing intermittently Chest: Diminished with fair breath bilaterally CVS: Regular rate and rhythm, normal heart sounds, no murmur Abdomen: Soft, non tender, not distended, normal bowel sounds Neuro: Awake, alert, oriented, conversing well, non focal Extremities: No cyanosis, clubbing or edema Results & Data Results & Data Vital Signs (Past 12 Hours) Vital Signs Temp Pulse Pulse Resp BP BP Pulse Ox 08/07/22 10:54 08/07/22 08:00 36.5 C 70 18 106/49 L 91 08/07/22 07:38 61 08/07/22 03:31 36.7 C 70 18 107/63 94 08/07/22 01:00 08/06/22 23:34 36.6 C 67 18 103/57 L 93 O2 Del Method O2 Flow Rate 08/07/22 10:54 Room Air 08/07/22 08:00 Room Air 08/07/22 07:38 08/07/22 03:31 Nasal Cannula 2 08/07/22 01:00 Nasal Cannula 2 08/06/22 23:34 Room Air Laboratory Results Short CBC 08/07/22 Range/Units 06:28 WBC 2.14 L (4.8-10.8) K/ul Hgb 13.2 L (14.0-18.0) g/dl Hct 37.9 L (42.0-52.0) % Plt Count 195 (130-400) K/uL BMP 08/07/22 06:28 Sodium 137 Potassium 3.6 Chloride 107 Carbon Dioxide 22 BUN 15 Creatinine 1.12 Glucose 153 H Calcium 6.5 L Liver Function 08/07/22 Range/Units 06:28 Total Bilirubin 0.7 (0.2-1.0) mg/dl AST 19 (13-39) U/L ALT 13 (7-52) U/L Alkaline Phosphatase 39 (34-104) U/L Albumin 3.1 L (3.4-5.0) gm/dl Medications Administered Current Inpatient Medications Acetaminophen (Acetaminophen 325 Mg Tab) 650 mg PO Q4H PRN PRN Reason: Pain or Fever Stop: 09/05/22 06:03 Last Admin: 08/07/22 03:09 Dose: 650 mg Albuterol (Albut/Ipratrop 3mg/0.5mg Neb 3 Ml Vial) 3 ml NEB QIDR [facility]; Protocol Stop: 09/06/22 10:59 Alprazolam (Alprazolam 0.5 Mg Tablet) 0.5 mg PO HS [facility] Stop: 09/05/22 20:59 Last Admin: 08/06/22 20:52 Dose: 0.5 mg Apixaban (Apixaban 5 Mg Tablet) 5 mg PO BID ANA Stop: 09/05/22 08:59 Last Admin: 08/07/22 09:38 Dose: 5 mg Atorvastatin Calcium (Atorvastatin 40 Mg Tab) 80 mg PO HS ANA Stop: 09/05/22 20:59 Last Admin: 08/06/22 20:46 Dose: 80 mg Benzonatate (Benzonatate 100 Mg Capsule) 200 mg PO TID [facility] Stop: 09/06/22 13:59 Clopidogrel Bisulfate (Clopidogrel Bisulfate 75 Mg Tab) 75 mg PO DAILY ANA Stop: 09/05/22 08:59 Last Admin: 08/07/22 09:41 Dose: 75 mg Cyanocobalamin (Cyanocobalamin (B-12) 100 Mcg Tablet) 200 mcg PO QAM [facility] Stop: 09/05/22 08:59 Last Admin: 08/07/22 09:39 Dose: 200 mcg Dextrose (Dextrose 50% 50 Ml Syringe) 25 - 50 ml IV UD PRN; Protocol PRN Reason: Hypoglycemia Protocol Stop: 09/05/22 06:03 Duloxetine HCl (Duloxetine Hcl 60 Mg Cap) 60 mg PO QAM ANA Stop: 09/05/22 08:59 Last Admin: 08/07/22 09:41 Dose: 60 mg Ezetimibe (Ezetimibe 10 Mg Tablet) 10 mg PO DAILY ANA Stop: 09/05/22 08:59 Last Admin: 08/07/22 09:39 Dose: 10 mg Ferrous Sulfate (Ferrous Sulfate 325 Mg Tab) 325 mg PO MoWeFr@0900 ANA Stop: 09/05/22 08:59 Last Admin: 08/06/22 09:24 Dose: 325 mg Finasteride (Finasteride 5 Mg Tab) 5 mg PO QAM ANA Stop: 09/05/22 08:59 Last Admin: 08/07/22 09:39 Dose: 5 mg Gabapentin (Gabapentin 300 Mg Cap) 300 mg PO HS ANA Stop: 09/05/22 20:59 Last Admin: 08/06/22 20:45 Dose: 300 mg Glucagon (Glucagon For Inj 1 Mg Vial) 1 mg SQ UD PRN; Protocol PRN Reason: Hypoglycemia Protocol Stop: 09/05/22 06:03 Glucose (Glucose 10 Tab/Tube) 4 - 8 tab PO UD PRN; Protocol PRN Reason: Hypoglycemia Treatment Stop: 09/05/22 06:03 Glucose (Glucose 40% Gel 15 Gm Tube) 15 - 30 gm PO UD PRN; Protocol PRN Reason: Hypoglycemia Protocol Stop: 09/05/22 06:03 Guaifenesin/Dextromethorphan (Guaifenesin/Dextrom Syrup 100mg/10mg 5ml Udc) 5 ml PO Q6H ANA Stop: 09/06/22 10:29 Last Admin: 08/07/22 10:30 Dose: Not Given Dexamethasone 6 mg/ Syringe 1.5 mls @ 1 mls/min IV DAILY ANA Stop: 09/06/22 08:59 Last Admin: 08/07/22 09:45 Dose: 1 mls/min Promethazine HCl 12.5 mg/ (Sodium Chloride) 50.5 mls @ 202 mls/hr IV Q6H PRN PRN Reason: Nausea And Vomiting Stop: 09/05/22 03:24 Remdesivir 100 mg/ Sodium (Chloride) 250 mls @ 250 mls/hr IV Q24H [facility] Stop: 08/10/22 12:59 Piperacillin Sod/Tazobactam (Sod 3.375 gm/ Dextrose) 115 mls @ 28.75 mls/hr IV Q8H [facility]; Protocol Stop: 08/13/22 08:59 Last Admin: 08/07/22 09:45 Dose: 28.8 mls/hr Insulin Aspart (Insulin Aspart Per Unit Charge) 0 units SC ACHS [facility] Stop: 09/05/22 06:03 Last Admin: 08/07/22 09:58 Dose: 4 units Insulin Glargine (Lantus Per Unit Charge) 5 units SQ DAILY [facility] Stop: 09/05/22 08:59 Last Admin: 08/07/22 09:58 Dose: 5 units Levothyroxine Sodium (Levothyroxine Sodium 137 Mcg Tablet) 137 mcg PO DAILYBB [facility] Stop: 09/05/22 06:29 Last Admin: 08/07/22 05:59 Dose: 137 mcg Loperamide HCl (Loperamide Hcl 2 Mg Cap) 2 mg PO TID PRN PRN Reason: Diarrhea Stop: 09/05/22 17:44 Last Admin: 08/06/22 18:12 Dose: 2 mg Metoprolol Succinate (Metoprolol Succ 50mg Ext Rel Tab) 50 mg PO AMHS [facility] Stop: 09/05/22 08:59 Last Admin: 08/07/22 09:38 Dose: 50 mg Miscellaneous (Icosapent Ethyl [Vascepa] ~ Order Awaiting Action) 1 each N/A QS [facility] Stop: 09/05/22 07:59 Last Admin: 08/07/22 09:37 Dose: Not Given Miscellaneous (Carbohydrates For Hypoglycemia ) 15 - 30 gm PO UD PRN PRN Reason: Hypoglycemia Protocol Stop: 09/05/22 06:03 Nitroglycerin (Nitroglycerin Sl 0.4 Mg/Tab Tab) 0.4 mg SL UD PRN PRN Reason: Chest Pain Stop: 09/05/22 06:03 Oxycodone HCl (Oxycodone Hcl Ir 5 Mg Tab (Immediate Release)) 5 - 10 mg PO QID PRN PRN Reason: Pain Stop: 08/20/22 06:03 Pantoprazole Sodium (Pantoprazole 40 Mg Tab) 40 mg PO [facility] Stop: 09/05/22 08:59 Last Admin: 08/07/22 09:38 Dose: 40 mg Tamsulosin HCl (Tamsulosin Hcl 0.4 Mg Cap) 0.4 mg PO QAM [facility] Stop: 09/05/22 08:59 Last Admin: 08/07/22 09:38 Dose: 0.4 mg
[2022-08-07] MEDS: ALBUT/IPRATROP 3MG/0.5MG NEB 3 ML VIAL NEB SCH ×3 (11:20→18:59)
[2022-08-07] MEDS: REMDESIVIR 100 MG in SODIUM CHLORIDE 0.9% 230 ML IV SCH (13:26)
[2022-08-07] MEDS: AMPICILLIN/SULBACTAM SOD 3,000 MG in 0.9 % SODIUM CHLORIDE 100 ML IV SCH ×2 (14:41→21:01)
[2022-08-07] MEDS: POT PHOSPHATE MONOBASIC W/ SOD TAB PO SCH ×2 (17:24→21:12)
[2022-08-07] MEDS: ALPRAZolam 0.5 MG TABLET PO SCH (21:07)
[2022-08-07] MEDS: CALCIUM CARBONATE 1,250 MG/5 ML UDC PO SCH ×2 (21:08→21:15)
[2022-08-07] MEDS: ATORVASTATIN 40 MG TAB PO SCH (21:09)
[2022-08-07] MEDS: GABAPENTIN 300 MG CAP PO SCH (21:10)
[2022-08-08] MEDS: AMPICILLIN/SULBACTAM SOD 3,000 MG in 0.9 % SODIUM CHLORIDE 100 ML IV SCH ×2 (01:21→09:02)
[2022-08-08] MEDS: guaiFENesin/DEXTROM SYRUP 100MG/10MG 5ML UDC PO SCH ×2 (04:00→09:11)
[2022-08-08] MEDS: LEVOTHYROXINE SODIUM 137 MCG TABLET PO SCH (05:53)
[2022-08-08] MEDS: LOPERAMIDE HCL 2 MG CAP PO PRN ×3 (06:14→20:23)
[2022-08-08] MEDS: ALBUT/IPRATROP 3MG/0.5MG NEB 3 ML VIAL NEB SCH (07:21)
[2022-08-08 07:33] LABS: Hematocrit (blood only) 38.4 % (42.0-52.0); Hemoglobin 13.3 g/dl (14.0-18.0); Mean Corpuscular Hemoglobin 28.7 pg (25.0-34.0); Mean Corpuscular Hgb Conc 34.6 g/dL (32.0-36.0); Mean Corpuscular Volume 82.9 fL (80.0-100.0); Mean Platelet Volume 9.7 fL (9.4-12.4); Platelet Count 180 K/uL (130-400); RDW Coefficient of Variation 12.6 % (11.5-14.5); RDW Standard Deviation 38.1 fL (36.4-46.3); Red Blood Count 4.63 M/uL (4.70-6.10); White Blood Count 3.02 K/ul (4.8-10.8)
[2022-08-08 07:49] LABS: BUN Creatinine Ratio 11.9 (10-20); C Reactive Protein 3.39 mg/dl (0-0.5); Calcium 6.6 mg/dl (8.6-10.3); Creatinine Clr Calc Pharmacy 67.6 ml/min; Est GFR (African American) 82.1 ml/min; Est GFR (Non-African American) 70.9 ml/min
[2022-08-08] MEDS: INSULIN ASPART PER UNIT CHARGE SC SCH ×4 (08:53→20:19)
[2022-08-08] MEDS: LANTUS PER UNIT CHARGE SQ SCH (08:54)
[2022-08-08] MEDS: dexAMETHasone 6 MG in SYRINGE 0 ML IV SCH (09:02)
[2022-08-08] MEDS: DULoxetine HCL 60 MG CAP PO SCH (09:08)
[2022-08-08] MEDS: POT PHOSPHATE MONOBASIC W/ SOD TAB PO SCH (09:08)
[2022-08-08] MEDS: CLOPIDOGREL BISULFATE 75 MG TAB PO SCH (09:08)
[2022-08-08] MEDS: TAMSULOSIN HCL 0.4 MG CAP PO SCH (09:09)
[2022-08-08] MEDS: EZETIMIBE 10 MG TABLET PO SCH (09:09)
[2022-08-08] MEDS: METOPROLOL SUCC 50MG EXT REL TAB PO SCH ×2 (09:09→20:23)
[2022-08-08] MEDS: FINASTERIDE 5 MG TAB PO SCH (09:09)
[2022-08-08] MEDS: CYANOCOBALAMIN (B-12) 100 MCG TABLET PO SCH (09:09)
[2022-08-08] MEDS: BENZONATATE 100 MG CAPSULE PO SCH ×3 (09:09→20:24)
[2022-08-08] MEDS: APIXABAN 5 MG TABLET PO SCH ×2 (09:10→20:24)
[2022-08-08] MEDS: PANTOprazole 40 MG TAB PO SCH ×2 (09:11→20:23)
[2022-08-08] MEDS: CALCIUM CARBONATE 1,250 MG/5 ML UDC PO SCH (09:11)
[2022-08-08] MEDS: guaiFENesin 600 MG TABCR PO SCH ×2 (09:56→20:55)
[2022-08-08] MEDS ORDERED: ALBUT/IPRATROP 3MG/0.5MG NEB 3 ML VIAL NEB PRN (10:01)
--- NOTE | 2022-08-08 10:16 | Gastrointestinal Consultation ---
Date of Consultation August 08, 2022 Assessment & Plan (1) Nausea & vomitin66 year old man with COVID, nausea and vomiting and diarrhea. His nausea and vomiting are better now and may be due to his overall medical condition. Currently they are not an issue for him. He also has chronic diarrhea. His CT does not show evidence of colitis. It is possible diarrhea related to meds or even COVID although the diarrhea is longer lasting than the COVID. I do agree he needs colonoscopy but would wait until COVID is negative unless it becomes an emergency. At time of colonoscopy he can have EGD History of Present Illness Reason for Consultation: nausea, vomiting and diarrhea Attending Physician: Desmond Caceres MD History of Present Illness 66 year old gentleman in the hospital with COVID who has had stomach issues for two months. He will have spells of nausea and vomiting that he finds difficult to control and the last spell brought him back to the hospital. However he tells me he has not had any issues with nausea or vomiting for the last few days. He has also had diarrhea for the past two months or so. He is scheduled to have a colonoscopy with Nena in October of this year. He says when he coughs he will have some incontinence. He was up five times last night with diarrhea. Stool is negative for c. diff. He sees no blood in his stool. Allergies Allergy/AdvReac Type Severity Reaction Status Date / Time Quinolones Allergy Unknown Unknown Verified 07/31/22 21:25 ofloxacin [From Floxin] AdvReac Severe Hallucinati Verified 07/31/22 21:25 ng Home Medications Medication Instructions Recorded Confirmed Type alprazolam 0.5 mg tablet (Xanax) 0.5 mg PO HS 01/29/18 08/05/22 History nitroglycerin 0.4 mg sublingual 0.4 mg sublingual DIRECTED PRN 01/29/18 History tablet (Nitrostat) Chest Pain icosapent ethyl 1 gram capsule 2 g PO AMHS 12/03/18 08/05/22 History (Vascepa) atorvastatin 80 mg tablet (Lipitor) 80 mg PO HS 09/13/19 08/05/22 History cyanocobalamin (vitamin B-12) 100 200 mcg PO QAM 09/13/19 08/05/22 History mcg tablet ascorbic acid (vitamin C) 500 mg 500 mg PO DAILY 04/24/20 08/05/22 History tablet (Vitamin C) ferrous sulfate 325 mg (65 mg 325 mg PO 3XWK 04/24/20 08/05/22 History iron) tablet levothyroxine 137 mcg tablet 137 mcg PO QAM 04/24/20 08/05/22 History (Synthroid) metformin 500 mg tablet,extended 500 mg PO AMHS 04/24/20 08/05/22 History release 24 hr ondansetron 4 mg disintegrating 4 mg PO Q8H PRN Nausea 04/24/20 08/05/22 History tablet ezetimibe 10 mg tablet 10 mg PO DAILY 12/31/20 08/05/22 History apixaban 5 mg tablet (Eliquis) 5 mg PO BID 04/19/21 08/05/22 History clopidogrel 75 mg tablet 75 mg PO DAILY 04/19/21 08/05/22 History oxycodone 5 mg tablet 5 mg PO Q6H PRN pain #12 tabs 02/24/22 08/05/22 Rx acetaminophen 500 mg tablet 1,000 mg PO Q6H PRN Fever Or Pain 07/31/22 08/05/22 History dulaglutide 1.5 mg/0.5 mL 1.5 mg subcut WK 07/31/22 08/05/22 History subcutaneous pen injector (Trulicity) duloxetine 60 mg capsule,delayed 60 mg PO QAM 07/31/22 08/05/22 History release finasteride 5 mg tablet 5 mg PO QAM 07/31/22 08/05/22 History gabapentin 300 mg capsule 300 mg PO HS 07/31/22 08/05/22 History meclizine 25 mg tablet 12.5 - 25 mg PO Q6 PRN Dizziness 07/31/22 08/05/22 History metoprolol succinate 50 mg 50 mg PO AMHS 07/31/22 08/05/22 History tablet,extended release 24 hr pantoprazole 40 mg tablet,delayed 40 mg PO AMHS 07/31/22 08/05/22 History release prednisone 5 mg tablet 5 mg PO QAM 07/31/22 08/05/22 History tramadol 50 mg tablet 50 mg PO DAILY PRN mod-severe pain 07/31/22 08/05/22 History L.acidop,casei,lactis,rham-B.lact,augusto 2 cap PO DAILY 7 days #14 caps 08/02/22 08/05/22 Rx 625 mg (10 billion cell) capsule (Advanced Probiotic) promethazine 12.5 mg rectal 12.5 mg PA DAILY #12 ea 08/02/22 08/05/22 Rx suppository tamsulosin 0.4 mg capsule 0.4 mg PO QAM 08/05/22 08/05/22 History Patient History Medical History CAD (coronary artery disease) s/p PCI to LAD due to atretic WHITAKER graft CAD (coronary artery disease) Diabetes Diabetes HTN (hypertension) Hyperlipidemia Hypothyroidism associated with surgical procedure Kidney disease Obesity (BMI 30.0-34.9) Thyroid cancer thyroidectomy in 2001 Thyroidectomy (02/21/13) Surgical History Aortocoronary bypass status 03/2014 : 2x CAB[place] [facility] [place] History of cardiac cath History of thyroidectomy Stented coronary artery Occluded Staphenous Vein Graft. NIMESH x's 4 Social History Smoking Status: Never smoker Second Hand Exposure: Yes ( smoker); Hx Alcohol Use: No Hx Substance Use: No Preferred Language: Botswan[place] Communication Ability: Effective Skull Grinder Required: No Beliefs That Will Affect Care: None marital status: Current Living Situation: Spouse and Family Current Living Situation Comment: House current occupation: Retired Feels Safe at Home: Yes Assistive Devices: Glasses Review of Systems Review of Systems: All systems reviewed & are unremarkable except as noted in HPI & below Physical Exam Constitutional: WD/WN, vitals as above no acute distress Eyes: PERRL, conjunctivae normal, anicteric sclerae ENMT: external ear and nose normal, oropharynx normal Neck: trachea midline, no thyromegaly Respiratory: normal respiratory effort, lungs clear to auscultation + cough Cardiovascular: RRR, no murmur, no edema Gastrointestinal (Abdomen): normal bowel sounds, soft, nontender, no hepatosplenomegaly Musculoskeletal: Extremities: no cyanosis and no clubbing Skin: no rashes, warm and dry Neurologic: PERRL, EOMI, accommodation nl, no face palsy, no dysarthria Psychiatric: Orientation: alert and oriented x 3 Results & Data Vital Signs (Past 12 Hours) Vital Signs Temp Pulse Resp BP Pulse Ox O2 Del Method 08/08/22 09:49 Room Air 08/08/22 08:00 36.7 C 81 18 122/71 93 Room Air 08/08/22 07:21 61 16 93 Room Air 08/07/22 22:15 Room Air Laboratory Results 08/08/22 08/08/22 08/08/22 Range/Units 08:15 07:09 07:09 WBC 3.02 L (4.8-10.8) K/ul RBC 4.63 L (4.70-6.10) M/uL Hgb 13.3 L (14.0-18.0) g/dl Hct 38.4 L (42.0-52.0) % MCV 82.9 (80.0-100.0) fL MCH 28.7 (25.0-34.0) pg MCHC 34.6 (32.0-36.0) g/dL RDW Std Deviation 38.1 (36.4-46.3) fL RDW Coeff of Cuco 12.6 (11.5-14.5) % Plt Count 180 (130-400) K/uL MPV 9.7 (9.4-12.4) fL Sodium 141 (136-145) mmol/L Potassium 4.0 (3.5-5.1) mmol/L Chloride 108 H (98-107) mmol/L Carbon Dioxide 25 (21-32) mmol/L Anion Gap 8 (3-11) BUN 13 (6-23) mg/dl Creatinine 1.09 (0.6-1.4) mg/dl Est Cr Clr Drug Dosing 67.6 ml/min Est GFR ( Amer) 82.1 ml/min Est GFR (Non-Af Amer) 70.9 ml/min BUN/Creatinine Ratio 11.9 (10-20) Glucose 114 H (70-99(Fasting)) mg/dl POC Glucose 110 H (70-99) mg/dl Calcium 6.6 L (8.6-10.3) mg/dl Phosphorus 3.0 (2.5-4.9) mg/dl C-Reactive Protein 3.39 H (0-0.5) mg/dl Stl C. diff Tox B Gene (Neg) 08/07/22 08/07/22 08/07/22 Range/Units 19:58 17:09 14:48 WBC (4.8-10.8) K/ul RBC (4.70-6.10) M/uL Hgb (14.0-18.0) g/dl Hct (42.0-52.0) % MCV (80.0-100.0) fL MCH (25.0-34.0) pg MCHC (32.0-36.0) g/dL RDW Std Deviation (36.4-46.3) fL RDW Coeff of Cuco (11.5-14.5) % Plt Count (130-400) K/uL MPV (9.4-12.4) fL Sodium (136-145) mmol/L Potassium (3.5-5.1) mmol/L Chloride (98-107) mmol/L Carbon Dioxide (21-32) mmol/L Anion Gap (3-11) BUN (6-23) mg/dl Creatinine (0.6-1.4) mg/dl Est Cr Clr Drug Dosing ml/min Est GFR ( Amer) ml/min Est GFR (Non-Af Amer) ml/min BUN/Creatinine Ratio (10-20) Glucose (70-99(Fasting)) mg/dl POC Glucose 257 H 184 H (70-99) mg/dl Calcium (8.6-10.3) mg/dl Phosphorus (2.5-4.9) mg/dl C-Reactive Protein (0-0.5) mg/dl Stl C. diff Tox B Gene Negative Cdiff Gene (Neg) 08/07/22 Range/Units 12:08 WBC (4.8-10.8) K/ul RBC (4.70-6.10) M/uL Hgb (14.0-18.0) g/dl Hct (42.0-52.0) % MCV (80.0-100.0) fL MCH (25.0-34.0) pg MCHC (32.0-36.0) g/dL RDW Std Deviation (36.4-46.3) fL RDW Coeff of Cuco (11.5-14.5) % Plt Count (130-400) K/uL MPV (9.4-12.4) fL Sodium (136-145) mmol/L Potassium (3.5-5.1) mmol/L Chloride (98-107) mmol/L Carbon Dioxide (21-32) mmol/L Anion Gap (3-11) BUN (6-23) mg/dl Creatinine (0.6-1.4) mg/dl Est Cr Clr Drug Dosing ml/min Est GFR ( Amer) ml/min Est GFR (Non-Af Amer) ml/min BUN/Creatinine Ratio (10-20) Glucose (70-99(Fasting)) mg/dl POC Glucose 183 H (70-99) mg/dl Calcium (8.6-10.3) mg/dl Phosphorus (2.5-4.9) mg/dl C-Reactive Protein (0-0.5) mg/dl Stl C. diff Tox B Gene (Neg) Diagnostic Findings Abdomen/Pelvis CT 08/05/22 22:20 Exam(s): CT ABDOMEN + PELVIS With Contrast IV Amt: 100 ml optiray 320 EXAM: CT Abdomen and Pelvis With Intravenous Contrast CLINICAL HISTORY: Reason for exam: n/v, weakness. TECHNIQUE: Axial computed tomography images of the abdomen and pelvis with intravenous contrast. CTDI is 16.9 mGy and DLP is 744.97 mGy-cm. Automated exposure control was utilized for the study. A dose lowering technique was utilized adhering to the principles of ALARA. CONTRAST: Patient received 100 ml optiray 320 of IV contrast COMPARISON: Prior 03/03/2020 CT chest and 02/24/2022 CT abdomen and pelvis. CTA chest also today FINDINGS: Lung bases: Unremarkable. No mass. No consolidation. ABDOMEN: Liver: Unremarkable. No mass. Gallbladder and bile ducts: Cholecystectomy. No ductal dilation. Pancreas: Unremarkable. No mass. No ductal dilation. Spleen: Unremarkable. No splenomegaly. Adrenals: Unremarkable. No mass. Kidneys and ureters: Bilateral renal low-density lesions, likely cysts. Nonobstructing bilateral renal calculi. No hydronephrosis. Stomach and bowel: Colonic diverticulosis. No obstruction. No mucosal thickening. PELVIS: Appendix: Normal appendix. Bladder: Unremarkable. No mass. Reproductive: Unremarkable as visualized. ABDOMEN and PELVIS: Intraperitoneal space: Unremarkable. No free air. No significant fluid collection. Bones/joints: Please see separate CTA chest also today for thoracic findings. No acute fracture. No dislocation. Soft tissues: Unremarkable. Vasculature: Moderate aortoiliac calcifications. No abdominal aortic aneurysm. Lymph nodes: Unremarkable. No enlarged lymph nodes. IMPRESSION: 1. No evidence of acute abnormality. 2. Nonobstructing bilateral renal calculi. No hydronephrosis. 3. Colonic diverticulosis. Electronically signed by: Willam Baptiste M.D. 08/06/22 02:24 AM Chest X-Ray 08/05/22 22:20 XR chest 1V portable HISTORY: weakness COMPARISON: Chest 07/31/2022. FINDINGS: There are low lung volumes. No pneumothorax. Trace bilateral pleural effusions are noted. The cardiac silhouette is borderline enlarged. This remains unchanged. There are poststernotomy changes and a prior cholecystectomy. Bibasilar linear densities are new from the prior study. The upper lung zones are clear. No evidence for pulmonary edema. IMPRESSION: 1. There are new bibasilar linear densities. This may represent subsegmental atelectasis or a pneumonia. 2. Trace bilateral pleural effusions. ACT 112: Negative or not required by law. Electronically signed by: Elvin Scherer M.D. 08/06/2022 7:43 AM Chest CTA 08/05/22 23:11 Exam(s): CTA CHEST IV Amt: 100 ml optiray 320 EXAM: CT Angiography Chest With Intravenous Contrast CLINICAL HISTORY: Reason for exam: PE. History of sarcoidosis based on the prior chest CT report. TECHNIQUE: Axial computed tomographic angiography images of the chest with intravenous contrast. CTDI is 16.9 mGy and DLP is 744.97 mGy-cm. Automated exposure control was utilized for the study. A dose lowering technique was utilized adhering to the principles of ALARA. MIP reconstructed images were created and reviewed. COMPARISON: Prior 03/03/2020 CT chest and 02/24/2022 CT abdomen and pelvis. CT abdomen and pelvis also today. FINDINGS: Pulmonary arteries: Unremarkable. No pulmonary embolism. Aorta: No acute findings. No thoracic aortic aneurysm. Lungs: Bibasilar atelectasis or mild airspace disease. Scattered patchy areas of groundglass opacities bilaterally are new since the prior. Stable 6 mm right lower lobe peripheral nodule series 4 image 176. Similar mild peribronchial thickening. Pleural space: Small bilateral pleural effusions. New since the prior. No pneumothorax. Heart: Coronary calcifications. CABG. No significant pericardial effusion. No evidence of RV dysfunction. Mediastinum: See below. Bones/joints: Median sternotomy wires. No acute fracture. No dislocation. Soft tissues: Unremarkable. Lymph nodes: Mediastinal and bilateral hilar adenopathy similar to the prior. Right paratracheal node 2 cm short axis. IMPRESSION: 1. No evidence of pulmonary embolism. 2. Bibasilar atelectasis or mild airspace disease. Scattered patchy areas of groundglass opacities bilaterally are new since the prior. May represent infectious or inflammatory process. 3. Mediastinal and bilateral hilar adenopathy similar to the prior. Right paratracheal node 2 cm short axis. 4. Small bilateral pleural effusions. New since the prior. 5. Stable 6 mm right lower lobe peripheral nodule. Electronically signed by: Willam Baptiste M.D. 08/06/22 02:09 AM (1) Nausea & vomiting Vomiting type: unspecified Qualified Code(s): R11.2 - Nausea with vomiting, unspecified
--- NOTE | 2022-08-08 10:39 | Hospitalist Progress Note ---
Date of Service August 08, 2022 Assessment & Plan (1) Acute hypoxemic respiratory failure: (2) Pneumonia due to COVID-19 virus: (3) Sarcoidosis: (4) Paroxysmal atrial fibrillation: (5) Diabetes mellitus type 2 in nonobese: (6) Postsurgical hypothyroidism: Plan 66-year-old male with multiple medical problems as below presented to ED with worsening cough productive of green phlegm. Patient was recently admitted 08/01- 08/02 for COVID-19 symptoms but had worsening symptoms and hence came to the ED. CT chest 1. No evidence of pulmonary embolism. 2. Bibasilar atelectasis or mild airspace disease. Scattered patchy areas of groundglass opacities bilaterally are new since the prior. May represent infectious or inflammatory process. 3. Mediastinal and bilateral hilar adenopathy similar to the prior.Right paratracheal node 2 cm short axis. 4. Small bilateral pleural effusions. New since the prior. 5. Stable 6 mm right lower lobe peripheral nodule. CT A/P 1. No evidence of acute abnormality. 2. Nonobstructing bilateral renal calculi. No hydronephrosis. 3. Colonic diverticulosis. COVID 19 PNA- Hypoxemia on admission resolved. Immunosuppressed on chronic p rednisone for sarcoidosis. - On decadron, remdesevir, antitussive, nebs, IS. Will discontinue antibiotics as concern for bacterial pneumonia or aspiration is lower at this point and is having multiple episodes of diarrhea likely from the antibiotics. - Labs: leukopenia, procal negative, CRP elevated at 6.5->3 -CTA chest with groundglass opacities consistent with COVID-19 pneumonia Sarcoidosis/immunocompromised- on chronic pred 5 mg daily. Currently on Decadron, will switch to prednisone when stable. Intermittent vomiting and diarrhea at home for the past 2 months with early satiety-concern for gastroparesis given his diabetes but DM is well controlled. Recommended outpatient GI for endoscopy, followed by gastric emptying study if unremarkable. He is COVID-positive status would preclude procedures inhouse. Had more episodes of diarrhea overnight, C. difficile negative, likely from antibiotics which will be discontinued. We will continue supportive management with fiber, probiotics, Reglan and imodium prn. Seen by GI, recommendations noted H/o CAD status post CABG/stent- on ASA, plavix, betablocker, statin PAF on Eliquis- currently NSR HTN- BP stable. H/o thyroid cancer status post surgery/radioablation with postsurgical hypothyroidism- on synthroid. TSH 0.24, fT4 normal- likely related to acute illness. Follow up TSH as OP once patient recovers DM2 HA1c of 6.9 last July 2022- On lantus, SSI. OHA on hold. GERD- on PPI Hypokalemia secondary to emesis- resolved BPH- on flomax and proscar Hypophosphatemia-resolved with supplementation Hypocalcemia-albumin mildly low. Calcium supplementation. Recheck in a.m. Dispo- Pending medical stability DVT prophylaxis. Eliquis Full code Contact: Libertda Hogan, contact #[phone]. Admission and Anticipated Discharge Date Admission Date: August 06, 2022 Subjective Patient was seen and examined at bedside. He does not feel as good today, feels washed out. States he had 5 episodes of diarrhea overnight, mostly watery. No blood. No fever or chills. Still has cough. He could not tolerate the liquids and is asking for 4 tablets instead of liquids. Nebs did not help much. No more nausea or vomiting. Tolerating diet without issues. Physical Exam Physical Exam: General: Sick looking, lying comfortably in bed, not in distress, intermittently on NC, coughing intermittently Chest: Diminished with fair breath bilaterally CVS: Regular rate and rhythm, normal heart sounds, no murmur Abdomen: Soft, non tender, not distended, normal bowel sounds Neuro: Awake, alert, oriented, conversing well, non focal Extremities: No cyanosis, clubbing or edema Results & Data Results & Data Vital Signs (Past 12 Hours) Vital Signs Temp Pulse Resp BP Pulse Ox O2 Del Method 08/08/22 09:49 Room Air 08/08/22 08:00 36.7 C 81 18 122/71 93 Room Air 08/08/22 07:21 61 16 93 Room Air Laboratory Results Short CBC 08/08/22 Range/Units 07:09 WBC 3.02 L (4.8-10.8) K/ul Hgb 13.3 L (14.0-18.0) g/dl Hct 38.4 L (42.0-52.0) % Plt Count 180 (130-400) K/uL BMP 08/08/22 07:09 Sodium 141 Potassium 4.0 Chloride 108 H Carbon Dioxide 25 BUN 13 Creatinine 1.09 Glucose 114 H Calcium 6.6 L Medications Administered Current Inpatient Medications Acetaminophen (Acetaminophen 325 Mg Tab) 650 mg PO Q4H PRN PRN Reason: Pain or Fever Stop: 09/05/22 06:03 Last Admin: 08/07/22 03:09 Dose: 650 mg Albuterol (Albut/Ipratrop 3mg/0.5mg Neb 3 Ml Vial) 3 ml NEB Q4R PRN; Protocol PRN Reason: SOB, wheezing Stop: 09/07/22 10:59 Alprazolam (Alprazolam 0.5 Mg Tablet) 0.5 mg PO HS ANA Stop: 09/05/22 20:59 Last Admin: 08/07/22 21:07 Dose: 0.5 mg Apixaban (Apixaban 5 Mg Tablet) 5 mg PO BID ANA Stop: 09/05/22 08:59 Last Admin: 08/08/22 09:10 Dose: 5 mg Atorvastatin Calcium (Atorvastatin 40 Mg Tab) 80 mg PO HS ANA Stop: 09/05/22 20:59 Last Admin: 08/07/22 21:09 Dose: 80 mg Benzonatate (Benzonatate 100 Mg Capsule) 200 mg PO TID ANA Stop: 09/06/22 13:59 Last Admin: 08/08/22 09:09 Dose: 200 mg Calcium Carbonate (Calcium Carbonate 1,250 Mg/5 Ml Udc) 1,250 mg PO BID ANA Stop: 09/06/22 20:59 Last Admin: 08/08/22 09:11 Dose: Not Given Clopidogrel Bisulfate (Clopidogrel Bisulfate 75 Mg Tab) 75 mg PO DAILY ANA Stop: 09/05/22 08:59 Last Admin: 08/08/22 09:08 Dose: 75 mg Cyanocobalamin (Cyanocobalamin (B-12) 100 Mcg Tablet) 200 mcg PO QAM ANA Stop: 09/05/22 08:59 Last Admin: 08/08/22 09:09 Dose: 200 mcg Dextrose (Dextrose 50% 50 Ml Syringe) 25 - 50 ml IV UD PRN; Protocol PRN Reason: Hypoglycemia Protocol Stop: 09/05/22 06:03 Duloxetine HCl (Duloxetine Hcl 60 Mg Cap) 60 mg PO QAM ANA Stop: 09/05/22 08:59 Last Admin: 08/08/22 09:08 Dose: 60 mg Ezetimibe (Ezetimibe 10 Mg Tablet) 10 mg PO DAILY ANA Stop: 09/05/22 08:59 Last Admin: 08/08/22 09:09 Dose: 10 mg Ferrous Sulfate (Ferrous Sulfate 325 Mg Tab) 325 mg PO MoWeFr@0900 ANA Stop: 09/05/22 08:59 Last Admin: 08/06/22 09:24 Dose: 325 mg Finasteride (Finasteride 5 Mg Tab) 5 mg PO QAM ANA Stop: 09/05/22 08:59 Last Admin: 08/08/22 09:09 Dose: 5 mg Gabapentin (Gabapentin 300 Mg Cap) 300 mg PO HS ANA Stop: 09/05/22 20:59 Last Admin: 08/07/22 21:10 Dose: 300 mg Glucagon (Glucagon For Inj 1 Mg Vial) 1 mg SQ UD PRN; Protocol PRN Reason: Hypoglycemia Protocol Stop: 09/05/22 06:03 Glucose (Glucose 10 Tab/Tube) 4 - 8 tab PO UD PRN; Protocol PRN Reason: Hypoglycemia Treatment Stop: 09/05/22 06:03 Glucose (Glucose 40% Gel 15 Gm Tube) 15 - 30 gm PO UD PRN; Protocol PRN Reason: Hypoglycemia Protocol Stop: 09/05/22 06:03 Guaifenesin (Guaifenesin 600 Mg Tabcr) 600 mg PO Q12 ANA Stop: 09/07/22 09:59 Last Admin: 08/08/22 09:56 Dose: Not Given Dexamethasone 6 mg/ Syringe 1.5 mls @ 1 mls/min IV DAILY ANA Stop: 09/06/22 08:59 Last Admin: 08/08/22 09:02 Dose: 1 mls/min Promethazine HCl 12.5 mg/ (Sodium Chloride) 50.5 mls @ 202 mls/hr IV Q6H PRN PRN Reason: Nausea And Vomiting Stop: 09/05/22 03:24 Remdesivir 100 mg/ Sodium (Chloride) 250 mls @ 250 mls/hr IV Q24H ANA Stop: 08/10/22 12:59 Last Infusion: 08/07/22 14:39 Dose: Infused Sodium Chloride (Nss 1000ml) 1,000 mls @ 100 mls/hr IV .Q10H ANA Stop: 09/07/22 09:59 Insulin Aspart (Insulin Aspart Per Unit Charge) 0 units SC [facility] Stop: 09/05/22 06:03 Last Admin: 08/08/22 08:53 Dose: 2 units Insulin Glargine (Lantus Per Unit Charge) 5 units SQ DAILY [facility] Stop: 09/05/22 08:59 Last Admin: 08/08/22 08:54 Dose: 5 units Levothyroxine Sodium (Levothyroxine Sodium 137 Mcg Tablet) [facility] Stop: 09/05/22 06:29 Last Admin: 08/08/22 05:53 Dose: 137 mcg Loperamide HCl (Loperamide Hcl 2 Mg Cap) 2 mg PO TID PRN PRN Reason: Diarrhea Stop: 09/05/22 17:44 Last Admin: 08/08/22 06:14 Dose: 2 mg Metoclopramide HCl (Metoclopramide Hcl Inj 5 Mg/Ml 2 Ml Vial) 10 mg IV Q6H PRN PRN Reason: Nausea, vomiting Stop: 09/06/22 11:14 Metoprolol Succinate (Metoprolol Succ 50mg Ext Rel Tab) 50 mg PO [facility] Stop: 09/05/22 08:59 Last Admin: 08/08/22 09:09 Dose: 50 mg Miscellaneous (Icosapent Ethyl [Vascepa] ~ Order Awaiting Action) 1 each N/A QS [facility] Stop: 09/05/22 07:59 Last Admin: 08/08/22 09:02 Dose: Not Given Miscellaneous (Carbohydrates For Hypoglycemia ) 15 - 30 gm PO UD PRN PRN Reason: Hypoglycemia Protocol Stop: 09/05/22 06:03 Nitroglycerin (Nitroglycerin Sl 0.4 Mg/Tab Tab) 0.4 mg SL UD PRN PRN Reason: Chest Pain Stop: 09/05/22 06:03 Oxycodone HCl (Oxycodone Hcl Ir 5 Mg Tab (Immediate Release)) 5 - 10 mg PO QID PRN PRN Reason: Pain Stop: 08/20/22 06:03 Pantoprazole Sodium (Pantoprazole 40 Mg Tab) 40 mg PO [facility] Stop: 09/05/22 08:59 Last Admin: 08/08/22 09:11 Dose: 40 mg Psyllium Hydrophilic Mucilloid (Psyllium Or Guar Gum Fiber Powder Packet) 1 pkt PO QAM [facility] Stop: 09/07/22 09:59 Saccharomyces Boulardii (Saccharomyces Boulardii 250 Mg Cap) 250 mg PO DAILY [facility] Stop: 09/07/22 09:59 Tamsulosin HCl (Tamsulosin Hcl 0.4 Mg Cap) 0.4 mg PO QAM [facility] Stop: 09/05/22 08:59 Last Admin: 08/08/22 09:09 Dose: 0.4 mg
[2022-08-08] MEDS: PSYLLIUM or GUAR GUM FIBER POWDER PACKET PO SCH (12:38)
[2022-08-08] MEDS: CALCIUM CARBONATE 1250MG TAB PO SCH ×2 (12:39→20:23)
[2022-08-08] MEDS: SACCHAROMYCES BOULARDII 250 MG CAP PO SCH (12:39)
[2022-08-08] MEDS: SODIUM CHLORIDE 0.9% 1000ML 1,000 ML IV SCH ×2 (12:42→22:54)
[2022-08-08] MEDS: REMDESIVIR 100 MG in SODIUM CHLORIDE 0.9% 230 ML IV SCH (12:42)
[2022-08-08] MEDS: ALPRAZolam 0.5 MG TABLET PO SCH (20:23)
[2022-08-08] MEDS: ATORVASTATIN 40 MG TAB PO SCH (20:23)
[2022-08-08] MEDS: GABAPENTIN 300 MG CAP PO SCH (20:24)
[2022-08-09] MEDS ORDERED: Nursing to Pharmacy Communication SCH (03:00)
[2022-08-09] MEDS: LEVOTHYROXINE SODIUM 137 MCG TABLET PO SCH (05:35)
[2022-08-09] MEDS: SODIUM CHLORIDE 0.9% 1000ML 1,000 ML IV SCH ×2 (07:27→17:37)
[2022-08-09] MEDS: FINASTERIDE 5 MG TAB PO SCH (07:34)
[2022-08-09] MEDS: FERROUS SULFATE 325 MG TAB PO SCH (07:34)
[2022-08-09] MEDS: PANTOprazole 40 MG TAB PO SCH ×2 (07:34→20:05)
[2022-08-09] MEDS: CALCIUM CARBONATE 1250MG TAB PO SCH ×2 (07:34→20:05)
[2022-08-09] MEDS: BENZONATATE 100 MG CAPSULE PO SCH ×3 (07:34→20:05)
[2022-08-09] MEDS: EZETIMIBE 10 MG TABLET PO SCH (07:34)
[2022-08-09] MEDS: APIXABAN 5 MG TABLET PO SCH ×2 (07:34→20:05)
[2022-08-09] MEDS: CLOPIDOGREL BISULFATE 75 MG TAB PO SCH (07:35)
[2022-08-09] MEDS: TAMSULOSIN HCL 0.4 MG CAP PO SCH (07:35)
[2022-08-09] MEDS: CYANOCOBALAMIN (B-12) 100 MCG TABLET PO SCH (07:35)
[2022-08-09] MEDS: METOPROLOL SUCC 50MG EXT REL TAB PO SCH ×2 (07:35→20:05)
[2022-08-09] MEDS: DULoxetine HCL 60 MG CAP PO SCH (07:35)
[2022-08-09] MEDS: PSYLLIUM or GUAR GUM FIBER POWDER PACKET PO SCH (07:36)
[2022-08-09] MEDS: INSULIN ASPART PER UNIT CHARGE SC SCH ×4 (09:28→21:29)
[2022-08-09] MEDS: LANTUS PER UNIT CHARGE SQ SCH (09:28)
[2022-08-09] MEDS: guaiFENesin 600 MG TABCR PO SCH ×2 (09:40→20:05)
[2022-08-09] MEDS: dexAMETHasone 6 MG in SYRINGE 0 ML IV SCH (09:40)
[2022-08-09] MEDS: SACCHAROMYCES BOULARDII 250 MG CAP PO SCH (09:40)
[2022-08-09] MEDS: LOPERAMIDE HCL 2 MG CAP PO PRN (09:40)
--- NOTE | 2022-08-09 10:01 | Communication Note ---
Date of Service: August 09, 2022 66-year-old male admitted with COVID GI consulted for nausea vomiting which has resolved. He also had diarrhea that has resolved with use of as needed Imodium. CT on arrival without any acute abnormalities. We will plan for outpatient EGD colonoscopy. Our office will contact him to arrange. GI will sign off.
[2022-08-09 10:16] LABS: Anion Gap 5 (3-11); BUN Creatinine Ratio 14.1 (10-20); Blood Urea Nitrogen 13 mg/dl (6-23); C Reactive Protein 2.03 mg/dl (0-0.5); Calcium 6.3 mg/dl (8.6-10.3); Carbon Dioxide 24 mmol/L (21-32); Chloride 107 mmol/L (98-107); Est GFR (African American) 100.8 ml/min; Glucose 133 mg/dl (70-99(Fasting)); Magnesium 1.6 mg/dl (1.7-2.4); Sodium 136 mmol/L (136-145)
[2022-08-09] MEDS: REMDESIVIR 100 MG in SODIUM CHLORIDE 0.9% 230 ML IV SCH (13:18)
--- NOTE | 2022-08-09 13:52 | Hospitalist Progress Note ---
Date of Service August 09, 2022 Assessment & Plan (1) Pneumonia due to COVID-19 virus: (2) Sarcoidosis: (3) Paroxysmal atrial fibrillation: (4) Diabetes mellitus type 2 in nonobese: (5) Postsurgical hypothyroidism: Plan 66-year-old male with multiple medical problems as below presented to ED with worsening cough productive of green phlegm. Patient was recently admitted 08/01- 08/02 for COVID-19 symptoms but had worsening symptoms and hence came to the ED. CT chest 1. No evidence of pulmonary embolism. 2. Bibasilar atelectasis or mild airspace disease. Scattered patchy areas of groundglass opacities bilaterally are new since the prior. May represent infectious or inflammatory process. 3. Mediastinal and bilateral hilar adenopathy similar to the prior.Right paratracheal node 2 cm short axis. 4. Small bilateral pleural effusions. New since the prior. 5. Stable 6 mm right lower lobe peripheral nodule. CT A/P 1. No evidence of acute abnormality. 2. Nonobstructing bilateral renal calculi. No hydronephrosis. 3. Colonic diverticulosis. COVID 19 PNA- Hypoxemia on admission resolved. Immunosuppressed on chronic prednisone for sarcoidosis. - On decadron, remdesevir, antitussive, nebs, IS. - Labs: leukopenia, procal negative, CRP elevated at 6.5->3 -CTA chest with groundglass opacities consistent with COVID-19 pneumonia Sarcoidosis/immunocompromised- on chronic pred 5 mg daily. Currently on Decadron, will switch to prednisone when stable. Intermittent vomiting and diarrhea at home for the past 2 months with early satiety-concern for gastroparesis given his diabetes but DM is well controlled. Recommended outpatient GI for endoscopy, followed by gastric emptying study if unremarkable. He is COVID-positive status would preclude procedures inhouse. Nausea vomiting and diarrhea is resolved at this point. C. difficile negative. We will continue supportive management with fiber, probiotics, Reglan and imodium prn. Seen by GI, recommendations noted-outpatient EGD/colonoscopy H/o CAD status post CABG/stent- on ASA, plavix, betablocker, statin PAF on Eliquis- currently NSR HTN- BP stable. H/o thyroid cancer status post surgery/radioablation with postsurgical hypothyroidism- on synthroid. TSH 0.24, fT4 normal- likely related to acute illness. Follow up TSH as OP once patient recovers DM2 HA1c of 6.9 last July 2022- On lantus, SSI. OHA on hold. GERD- on PPI BPH- on flomax and proscar Hypocalcemia-albumin mildly low. Calcium supplementation. Recheck in a.m. Dispo-anticipate discharge in 1 to 2 days. DVT prophylaxis. [facility] Contact: Libertad Hogan, contact #[phone]. Admission and Anticipated Discharge Date Admission Date: August 06, 2022 Subjective Patient was seen and examined at bedside. He is feeling better today. His diarrhea stopped. No more nausea or vomiting. Coughing is improved. No fever, chills, chest pain. Review of Systems Review of Systems: All systems reviewed & are unremarkable except as noted in Subjective Physical Exam Physical Exam: General: Lying comfortably in bed, not in distress, on NC Chest: Fair breath sound bilaterally CVS: Regular rate and rhythm, normal heart sounds, no murmur Abdomen: Soft, non tender, not distended, normal bowel sounds Neuro: Awake, alert, oriented, conversing well, non focal Extremities: No cyanosis, clubbing or edema Results & Data Results & Data Vital Signs (Past 12 Hours) Vital Signs Temp Pulse Resp BP Pulse Ox O2 Del Method 08/09/22 07:40 Room Air 08/09/22 07:26 36.5 C 62 18 161/88 H 95 Room Air 08/09/22 02:50 Room Air 08/09/22 02:31 36.7 C 63 18 144/85 H 94 Room Air Laboratory Results [facility] 08/09/22 08/09/22 09:35 10:52 Sodium 136 Potassium TNP 3.6 Chloride 107 Carbon Dioxide 24 BUN 13 Creatinine 0.92 Glucose 133 H Calcium 6.3 L Medications Administered Current Inpatient Medications Acetaminophen (Acetaminophen 325 Mg Tab) 650 mg PO Q4H PRN PRN Reason: Pain or Fever Stop: 09/05/22 06:03 Last Admin: 08/07/22 03:09 Dose: 650 mg Albuterol (Albut/Ipratrop 3mg/0.5mg Neb 3 Ml Vial) 3 ml NEB Q4R PRN; Protocol PRN Reason: SOB, wheezing Stop: 09/07/22 10:59 Alprazolam (Alprazolam 0.5 Mg Tablet) 0.5 mg PO HS ANA Stop: 09/05/22 20:59 Last Admin: 08/08/22 20:23 Dose: 0.5 mg Apixaban (Apixaban 5 Mg Tablet) 5 mg PO BID ANA Stop: 09/05/22 08:59 Last Admin: 08/09/22 07:34 Dose: 5 mg Atorvastatin Calcium (Atorvastatin 40 Mg Tab) 80 mg PO HS ANA Stop: 09/05/22 20:59 Last Admin: 08/08/22 20:23 Dose: 80 mg Benzonatate (Benzonatate 100 Mg Capsule) 200 mg PO TID ANA Stop: 09/06/22 13:59 Last Admin: 08/09/22 13:18 Dose: 200 mg Calcium Carbonate (Calcium Carbonate 1250mg Tab) 1,250 mg PO BID ANA Stop: 09/07/22 11:14 Last Admin: 08/09/22 07:34 Dose: 1,250 mg Clopidogrel Bisulfate (Clopidogrel Bisulfate 75 Mg Tab) 75 mg PO DAILY NAA Stop: 09/05/22 08:59 Last Admin: 08/09/22 07:35 Dose: 75 mg Cyanocobalamin (Cyanocobalamin (B-12) 100 Mcg Tablet) 200 mcg PO QAM ANA Stop: 09/05/22 08:59 Last Admin: 08/09/22 07:35 Dose: 200 mcg Dextrose (Dextrose 50% 50 Ml Syringe) 25 - 50 ml IV UD PRN; Protocol PRN Reason: Hypoglycemia Protocol Stop: 09/05/22 06:03 Duloxetine HCl (Duloxetine Hcl 60 Mg Cap) 60 mg PO QAM ANA Stop: 09/05/22 08:59 Last Admin: 08/09/22 07:35 Dose: 60 mg Ezetimibe (Ezetimibe 10 Mg Tablet) 10 mg PO DAILY ANA Stop: 09/05/22 08:59 Last Admin: 08/09/22 07:34 Dose: 10 mg Ferrous Sulfate (Ferrous Sulfate 325 Mg Tab) 325 mg PO MoWeFr@0900 ANA Stop: 09/05/22 08:59 Last Admin: 08/09/22 07:34 Dose: 325 mg Finasteride (Finasteride 5 Mg Tab) 5 mg PO QAM [facility] Stop: 09/05/22 08:59 Last Admin: 08/09/22 07:34 Dose: 5 mg Gabapentin (Gabapentin 300 Mg Cap) 300 mg PO HS ANA Stop: 09/05/22 20:59 Last Admin: 08/08/22 20:24 Dose: 300 mg Glucagon (Glucagon For Inj 1 Mg Vial) 1 mg SQ UD PRN; Protocol PRN Reason: Hypoglycemia Protocol Stop: 09/05/22 06:03 Glucose (Glucose 10 Tab/Tube) 4 - 8 tab PO UD PRN; Protocol PRN Reason: Hypoglycemia Treatment Stop: 09/05/22 06:03 Glucose (Glucose 40% Gel 15 Gm Tube) 15 - 30 gm PO UD PRN; Protocol PRN Reason: Hypoglycemia Protocol Stop: 09/05/22 06:03 Guaifenesin (Guaifenesin 600 Mg Tabcr) 600 mg PO Q12 ANA Stop: 09/07/22 09:59 Last Admin: 08/09/22 09:40 Dose: 600 mg Dexamethasone 6 mg/ Syringe 1.5 mls @ 1 mls/min IV DAILY ANA Stop: 09/06/22 08:59 Last Admin: 08/09/22 09:40 Dose: 1 mls/min Promethazine HCl 12.5 mg/ (Sodium Chloride) 50.5 mls @ 202 mls/hr IV Q6H PRN PRN Reason: Nausea And Vomiting Stop: 09/05/22 03:24 Remdesivir 100 mg/ Sodium (Chloride) 250 mls @ 250 mls/hr IV Q24H [facility] Stop: 08/10/22 12:59 Last Admin: 08/09/22 13:18 Dose: 250 mls/hr Sodium Chloride (Nss 1000ml) 1,000 mls @ 100 mls/hr IV .Q10H ANA Stop: 09/07/22 09:59 Last Admin: 08/09/22 07:27 Dose: 100 mls/hr Insulin Aspart (Insulin Aspart Per Unit Charge) 0 units SC ACHS [facility] Stop: 09/05/22 06:03 Last Admin: 08/09/22 13:07 Dose: 1 units Insulin Glargine (Lantus Per Unit Charge) 5 units SQ DAILY ANA Stop: 09/05/22 08:59 Last Admin: 08/09/22 09:28 Dose: 5 units Levothyroxine Sodium (Levothyroxine Sodium 137 Mcg Tablet) 137 mcg PO DAILYBB [facility] Stop: 09/05/22 06:29 Last Admin: 08/09/22 05:35 Dose: 137 mcg Loperamide HCl (Loperamide Hcl 2 Mg Cap) 2 mg PO TID PRN PRN Reason: Diarrhea Stop: 09/05/22 17:44 Last Admin: 08/09/22 09:40 Dose: 2 mg Metoclopramide HCl (Metoclopramide Hcl Inj 5 Mg/Ml 2 Ml Vial) 10 mg IV Q6H PRN PRN Reason: Nausea, vomiting Stop: 09/06/22 11:14 Metoprolol Succinate (Metoprolol Succ 50mg Ext Rel Tab) 50 mg PO [facility] Stop: 09/05/22 08:59 Last Admin: 08/09/22 07:35 Dose: 50 mg Miscellaneous (Icosapent Ethyl [Vascepa] ~ Order Awaiting Action) 1 each N/A QS [facility] Stop: 09/05/22 07:59 Last Admin: 08/09/22 07:39 Dose: Not Given Miscellaneous (Carbohydrates For Hypoglycemia ) 15 - 30 gm PO UD PRN PRN Reason: Hypoglycemia Protocol Stop: 09/05/22 06:03 Nitroglycerin (Nitroglycerin Sl 0.4 Mg/Tab Tab) 0.4 mg SL UD PRN PRN Reason: Chest Pain Stop: 09/05/22 06:03 Oxycodone HCl (Oxycodone Hcl Ir 5 Mg Tab (Immediate Release)) 5 - 10 mg PO QID PRN PRN Reason: Pain Stop: 08/20/22 06:03 Pantoprazole Sodium (Pantoprazole 40 Mg Tab) 40 mg PO [facility] Stop: 09/05/22 08:59 Last Admin: 08/09/22 07:34 Dose: 40 mg Psyllium Hydrophilic Mucilloid (Psyllium Or Guar Gum Fiber Powder Packet) 1 pkt [facility] [place] [place] Stop: 09/07/22 09:59 Last Admin: 08/09/22 07:36 Dose: Not Given Saccharomyces Boulardii (Saccharomyces Boulardii 250 Mg Cap) 250 mg PO DAILY [facility] Stop: 09/07/22 09:59 Last Admin: 08/09/22 09:40 Dose: 250 mg Tamsulosin HCl (Tamsulosin Hcl 0.4 Mg Cap) 0.4 mg PO QAM [facility] Stop: 09/05/22 08:59 Last Admin: 08/09/22 07:35 Dose: 0.4 mg
[2022-08-09] MEDS: MAGNESIUM OXIDE 400 MG TAB PO SCH (17:38)
[2022-08-09] MEDS: GABAPENTIN 300 MG CAP PO SCH (20:05)
[2022-08-09] MEDS: ATORVASTATIN 40 MG TAB PO SCH (20:05)
[2022-08-09] MEDS: ALPRAZolam 0.5 MG TABLET PO SCH (21:32)
[2022-08-10] MEDS: LEVOTHYROXINE SODIUM 137 MCG TABLET PO SCH (03:33)
[2022-08-10] MEDS: SODIUM CHLORIDE 0.9% 1000ML 1,000 ML IV SCH (03:33)
[2022-08-10 07:08] LABS: BUN Creatinine Ratio 15.8 (10-20); Calcium 6.2 mg/dl (8.6-10.3); Creatinine Clr Calc Pharmacy 72.9 ml/min; Est GFR (Non-African American) 77.7 ml/min; Magnesium 1.6 mg/dl (1.7-2.4); Phosphorus 3.3 mg/dl (2.5-4.9); Potassium 3.4 mmol/L (3.5-5.1)
[2022-08-10] MEDS ORDERED: POTASSIUM CHLORIDE CRTAB 20 MEQ TABCR PO ONE (07:52)
[2022-08-10] MEDS: dexAMETHasone 6 MG in SYRINGE 0 ML IV SCH (08:27)
[2022-08-10] MEDS: TAMSULOSIN HCL 0.4 MG CAP PO SCH (08:28)
[2022-08-10] MEDS: METOPROLOL SUCC 50MG EXT REL TAB PO SCH (08:28)
[2022-08-10] MEDS: EZETIMIBE 10 MG TABLET PO SCH (08:28)
[2022-08-10] MEDS: APIXABAN 5 MG TABLET PO SCH (08:28)
[2022-08-10] MEDS: CLOPIDOGREL BISULFATE 75 MG TAB PO SCH (08:28)
[2022-08-10] MEDS: CYANOCOBALAMIN (B-12) 100 MCG TABLET PO SCH (08:28)
[2022-08-10] MEDS: PANTOprazole 40 MG TAB PO SCH (08:29)
[2022-08-10] MEDS: DULoxetine HCL 60 MG CAP PO SCH (08:29)
[2022-08-10] MEDS: MAGNESIUM OXIDE 400 MG TAB PO SCH (08:29)
[2022-08-10] MEDS: SACCHAROMYCES BOULARDII 250 MG CAP PO SCH (08:29)
[2022-08-10] MEDS: CALCIUM CARBONATE 1250MG TAB PO SCH (08:29)
[2022-08-10] MEDS: FINASTERIDE 5 MG TAB PO SCH (08:29)
[2022-08-10] MEDS: PSYLLIUM or GUAR GUM FIBER POWDER PACKET PO SCH (08:30)
[2022-08-10] MEDS: guaiFENesin 600 MG TABCR PO SCH (08:30)
[2022-08-10] MEDS: BENZONATATE 100 MG CAPSULE PO SCH (08:40)
[2022-08-10] MEDS: LANTUS PER UNIT CHARGE SQ SCH (08:40)
[2022-08-10] MEDS: INSULIN ASPART PER UNIT CHARGE SC SCH (08:40)
[2022-08-10] MEDS: REMDESIVIR 100 MG in SODIUM CHLORIDE 0.9% 230 ML IV SCH (11:01)
--- NOTE | 2022-08-10 15:31 | Discharge Summary ---
Date of Service August 10, 2022 Admission HPI Per Admitting Provider History obtained from patient and records. 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 Overnight confinement 4 days ago for COVID-19 illness presenting as congestion associated nausea vomiting symptoms. Patient felt okay upon discharge. At home, patient noted gradual worsening of cough symptoms later productive of green sputum. No chest pain, no SOB. Achy abdominal pain with nausea vomiting. Poor appetite and weakness. No diarrhea symptoms. Patient denies headache. O2 sats noted to be 80s at the ER. Medical History as above Surgical History : CABG, partial thyroidectomy, laparoscopic cholecystectomy Family History : DM, heart disease, IBD Personal/Social history : Non-smoker, no EtOH intake, retired [employer] Admission Exam Per Admitting Provider GENERAL: Comfortable, pleasant, no respiratory distress SKIN: Normal color, warm HEENT: [place] palpebral conjunctivae, no ptosis, dry buccal mucosa, nasal cannula in place NECK : Supple, no tenderness CHEST : Decreased breath sounds, no tenderness HEART : RRR, no obvious murmurs ABDOMEN: Some distention, nontender EXTREMITIES : No LE swelling/tenderness, no other conspicuous deformities noted NEUROLOGIC : Coherent, no facial asymmetry, no other gross focality Principal Diagnosis COVID-19 pneumonia, sarcoidosis on chronic prednisone, no compromised, N/V/diar derrick Discharge Exam General: Lying comfortably in bed, not in distress, on NC Chest: Fair breath sound bilaterally CVS: Regular rate and rhythm, normal heart sounds, no murmur Abdomen: Soft, non tender, not distended, normal bowel sounds Neuro: Awake, alert, oriented, conversing well, non focal Extremities: No cyanosis, clubbing or edema Discharge Data Allergies Allergy/AdvReac Type Severity Reaction Status Date / Time Quinolones Allergy Unknown Unknown Verified 07/31/22 21:25 ofloxacin [From Floxin] AdvReac Severe Hallucinati Verified 07/31/22 21:25 ng Consultations 08/06/22 02:32 ED Decision to Admit Stat 08/08/22 09:50 Consult Gastroenterology Routine Ordered Studies 08/05/22 22:20 CT Abd and Pelvis [CT abd pelvis IV con only] Stat 08/05/22 23:11 CT angio chest PE protocol Stat Laboratory Results WBC 3.02 K/ul (4.8-10.8) L 08/08/22 07:09 RBC 4.63 M/uL (4.70-6.10) L 08/08/22 07:09 Hgb 13.3 g/dl (14.0-18.0) L 08/08/22 07:09 Hct 38.4 % (42.0-52.0) L 08/08/22 07:09 MCV 82.9 fL (80.0-100.0) 08/08/22 07:09 MCH 28.7 pg (25.0-34.0) 08/08/22 07:09 MCHC 34.6 g/dL (32.0-36.0) 08/08/22 07:09 RDW Std Deviation 38.1 fL (36.4-46.3) 08/08/22 07:09 RDW Coeff of Cuco 12.6 % (11.5-14.5) 08/08/22 07:09 Plt Count 180 K/uL (130-400) 08/08/22 07:09 MPV 9.7 fL (9.4-12.4) 08/08/22 07:09 Immature Gran % (Auto) 0.9 % 08/06/22 07:21 Neut % (Auto) 74.2 % 08/06/22 07:21 Lymph % (Auto) 9.5 % 08/06/22 07:21 [place] % (Auto) 15.4 % 08/06/22 07:21 Eos % (Auto) 0.0 % 08/06/22 07:21 Baso % (Auto) 0.0 % 08/06/22 07:21 Neut # (Auto) 1.64 K/uL (1.40-6.50) 08/06/22 07:21 Lymph # (Auto) 0.21 K/uL (1.2-3.4) L 08/06/22 07:21 Powell # (Auto) 0.34 K/uL (0.11-0.59) 08/06/22 07:21 Eos # (Auto) 0.00 K/uL (0-0.50) 08/06/22 07:21 Baso # (Auto) 0.00 K/uL (0-0.2) 08/06/22 07:21 Immature Gran # (Auto) 0.02 K/uL (0.01-0.20) 08/06/22 07:21 ABG pH 7.43 (7.35-7.45) 08/06/22 03:47 ABG pCO2 33 mmHg (35-46) L 08/06/22 03:47 ABG pO2 74 mmHg (80-95) L 08/06/22 03:47 ABG HCO3 22 mmol/L (19-24) 08/06/22 03:47 ABG O2 Saturation 97.3 % (90-95) H 08/06/22 03:47 ABG Base Excess -1.7 mEq/L (-9-1.8) 08/06/22 03:47 El Test Pos (Pos) 08/06/22 03:47 Oxygen Given ROOM AIR 08/06/22 03:47 Sodium 140 mmol/L (136-145) 08/10/22 06:25 Potassium 3.4 mmol/L (3.5-5.1) L 08/10/22 06:25 Chloride 105 mmol/L (98-107) 08/10/22 06:25 Carbon Dioxide 27 mmol/L (21-32) 08/10/22 06:25 Anion Gap 8 (3-11) 08/10/22 06:25 BUN 16 mg/dl (6-23) 08/10/22 06:25 Creatinine 1.01 mg/dl (0.6-1.4) 08/10/22 06:25 Est Cr Clr Drug Dosing 72.9 ml/min 08/10/22 06:25 Est GFR ( Amer) 90.0 ml/min 08/10/22 06:25 Est GFR (Non-Af Amer) 77.7 ml/min 08/10/22 06:25 BUN/Creatinine Ratio 15.8 (10-20) 08/10/22 06:25 Glucose 158 mg/dl (70-99(Fasting)) H 08/10/22 06:25 POC Glucose 113 mg/dl (70-99) H 08/10/22 08:24 Lactate 0.8 mmol/L (0.4-2.0) 08/06/22 03:47 Calcium 6.2 mg/dl (8.6-10.3) L 08/10/22 06:25 Phosphorus 3.3 mg/dl (2.5-4.9) 08/10/22 06:25 Magnesium 1.6 mg/dl (1.7-2.4) L 08/10/22 06:25 Total Bilirubin 0.7 mg/dl (0.2-1.0) 08/07/22 06:28 AST 19 U/L (13-39) 08/07/22 06:28 ALT 13 U/L (7-52) 08/07/22 06:28 Alkaline Phosphatase 39 U/L (34-104) 08/07/22 06:28 Total Creatine Kinase 46 U/L (30-223) 08/05/22 22:41 Troponin I High Sens 9.5 pg/ml (0-20) 08/06/22 00:20 C-Reactive Protein 2.03 mg/dl (0-0.5) H 08/09/22 09:35 Total Protein 5.3 gm/dl (6.0-8.3) L D 08/07/22 06:28 Albumin 3.1 gm/dl (3.4-5.0) L 08/07/22 06:28 Globulin 2.2 gm/dl (2.5-4.0) L 08/07/22 06:28 Albumin/Globulin Ratio 1.4 (0.9-2) 08/07/22 06:28 Lipase 41 U/L (11-82) 08/06/22 00:20 Procalcitonin < 0.05 ng/ml (0-0.5) 08/07/22 06:28 TSH 0.248 uIu/ml (0.300-4.500) L 08/06/22 02:43 Free T4 1.42 ng/dl (0.61-1.60) 08/06/22 02:43 Urine Color Yellow 08/06/22 00:46 Urine Appearance Clear (Clear) 08/06/22 00:46 Urine pH 6.0 (4.5-7.5) 08/06/22 00:46 Ur Specific [place] > 1.045 (1.000-1.030) H 08/06/22 00:46 Urine Protein 2+ (Negative) H 08/06/22 00:46 Urine Glucose (UA) Negative (Negative) 08/06/22 00:46 Urine Ketones 1+ (Negative) H 08/06/22 00:46 Urine Blood Negative (Negative) 08/06/22 00:46 Urine Nitrite Negative (Negative) 08/06/22 00:46 Urine Bilirubin Negative (Negative) 08/06/22 00:46 Urine Urobilinogen Negative (Negative) 08/06/22 00:46 Ur Leukocyte Esterase Negative (Negative) 08/06/22 00:46 Urine WBC (Auto) 1-5 /hpf (0-5) 08/06/22 00:46 Urine RBC (Auto) 0-4 /hpf (0-4) 08/06/22 00:46 U Hyaline Cast (Auto) 5-10 /lpf (0-5) H 08/06/22 00:46 U Epithel Cells (Auto) 20-30 /lpf (0-5) H 08/06/22 00:46 Urine Bacteria (Auto) Negative (Negative) 08/06/22 00:46 Stl C. diff Tox B Gene Negative Cdiff Gene (Neg) 08/07/22 14:48 SARS-CoV-2, RNA, NAAT POSITIVE (NEGATIVE) A* 08/05/22 00:00 Impressions Abdomen/Pelvis CT 08/05/22 22:20 Exam(s): CT ABDOMEN + PELVIS With Contrast IV Amt: 100 ml optiray 320 EXAM: CT Abdomen and Pelvis With Intravenous Contrast CLINICAL HISTORY: Reason for exam: n/v, weakness. TECHNIQUE: Axial computed tomography images of the abdomen and pelvis with intravenous contrast. CTDI is 16.9 mGy and DLP is 744.97 mGy-cm. Automated exposure control was utilized for the study. A dose lowering technique was utilized adhering to the principles of ALARA. CONTRAST: Patient received 100 ml optiray 320 of IV contrast COMPARISON: Prior 03/03/2020 CT chest and 02/24/2022 CT abdomen and pelvis. CTA chest also today FINDINGS: Lung bases: Unremarkable. No mass. No consolidation. ABDOMEN: Liver: Unremarkable. No mass. Gallbladder and bile ducts: Cholecystectomy. No ductal dilation. Pancreas: Unremarkable. No mass. No ductal dilation. Spleen: Unremarkable. No splenomegaly. Adrenals: Unremarkable. No mass. Kidneys and ureters: Bilateral renal low-density lesions, likely cysts. Nonobstructing bilateral renal calculi. No hydronephrosis. Stomach and bowel: Colonic diverticulosis. No obstruction. No mucosal thickening. PELVIS: Appendix: Normal appendix. Bladder: Unremarkable. No mass. Reproductive: Unremarkable as visualized. ABDOMEN and PELVIS: Intraperitoneal space: Unremarkable. No free air. No significant fluid collection. Bones/joints: Please see separate CTA chest also today for thoracic findings. No acute fracture. No dislocation. Soft tissues: Unremarkable. Vasculature: Moderate aortoiliac calcifications. No abdominal aortic aneurysm. Lymph nodes: Unremarkable. No enlarged lymph nodes. IMPRESSION: 1. No evidence of acute abnormality. 2. Nonobstructing bilateral renal calculi. No hydronephrosis. 3. Colonic diverticulosis. Electronically signed by: Willam Baptiste M.D. 08/06/22 02:24 AM Chest X-Ray 08/05/22 22:20 XR chest 1V portable HISTORY: weakness COMPARISON: Chest 07/31/2022. FINDINGS: There are low lung volumes. No pneumothorax. Trace bilateral pleural effusions are noted. The cardiac silhouette is borderline enlarged. This remains unchanged. There are poststernotomy changes and a prior cholecystectomy. Bibasilar linear densities are new from the prior study. The upper lung zones are clear. No evidence for pulmonary edema. IMPRESSION: 1. There are new bibasilar linear densities. This may represent subsegmental atelectasis or a pneumonia. 2. Trace bilateral pleural effusions. ACT 112: Negative or not required by law. Electronically signed by: Elvin Scherer M.D. 08/06/2022 7:43 AM Chest CTA 08/05/22 23:11 Exam(s): CTA CHEST IV Amt: 100 ml optiray 320 EXAM: CT Angiography Chest With Intravenous Contrast CLINICAL HISTORY: Reason for exam: PE. History of sarcoidosis based on the prior chest CT report. TECHNIQUE: Axial computed tomographic angiography images of the chest with intravenous contrast. CTDI is 16.9 mGy and DLP is 744.97 mGy-cm. Automated exposure control was utilized for the study. A dose lowering technique was utilized adhering to the principles of ALARA. MIP reconstructed images were created and reviewed. COMPARISON: Prior 03/03/2020 CT chest and 02/24/2022 CT abdomen and pelvis. CT abdomen and pelvis also today. FINDINGS: Pulmonary arteries: Unremarkable. No pulmonary embolism. Aorta: No acute findings. No thoracic aortic aneurysm. Lungs: Bibasilar atelectasis or mild airspace disease. Scattered patchy areas of groundglass opacities bilaterally are new since the prior. Stable 6 mm right lower lobe peripheral nodule series 4 image 176. Similar mild peribronchial thickening. Pleural space: Small bilateral pleural effusions. New since the prior. No pneumothorax. Heart: Coronary calcifications. CABG. No significant pericardial effusion. No evidence of RV dysfunction. Mediastinum: See below. Bones/joints: Median sternotomy wires. No acute fracture. No dislocation. Soft tissues: Unremarkable. Lymph nodes: Mediastinal and bilateral hilar adenopathy similar to the prior. Right paratracheal node 2 cm short axis. IMPRESSION: 1. No evidence of pulmonary embolism. 2. Bibasilar atelectasis or mild airspace disease. Scattered patchy areas of groundglass opacities bilaterally are new since the prior. May represent infectious or inflammatory process. 3. Mediastinal and bilateral hilar adenopathy similar to the prior. Right paratracheal node 2 cm short axis. 4. Small bilateral pleural effusions. New since the prior. 5. Stable 6 mm right lower lobe peripheral nodule. Electronically signed by: Willam Baptiste M.D. 08/06/22 02:09 AM Hospital Course (1) Pneumonia due to COVID-19 virus: (2) Sarcoidosis: (3) Paroxysmal atrial fibrillation: (4) Diabetes mellitus type 2 in nonobese: (5) Postsurgical hypothyroidism: Plan 66-year-old male with multiple medical problems as below presented to ED with worsening cough productive of green phlegm. Patient was recently admitted 08/01- 08/02 for COVID-19 symptoms but had worsening symptoms and hence came to the ED. CT chest 1. No evidence of pulmonary embolism. 2. Bibasilar atelectasis or mild airspace disease. Scattered patchy areas of groundglass opacities bilaterally are new since the prior. May represent infectious or inflammatory process. 3. Mediastinal and bilateral hilar adenopathy similar to the prior.Right paratracheal node 2 cm short axis. 4. Small bilateral pleural effusions. New since the prior. 5. Stable 6 mm right lower lobe peripheral nodule. CT A/P 1. No evidence of acute abnormality. 2. Nonobstructing bilateral renal calculi. No hydronephrosis. 3. Colonic diverticulosis. COVID 19 PNA- Hypoxemia on admission resolved. Immunosuppressed on chronic prednisone for sarcoidosis. -Treatedin-house with decadron, remdesevir, antitussive, nebs, IS. Improved, feeling better and is being discharged on Decadron for 5 more days after which he will resume his chronic prednisone. - Labs: leukopenia, procal negative, CRP elevated at 6.5->3->2 - CTA chest with groundglass opacities consistent with COVID-19 pneumonia Sarcoidosis/immunocompromised- on chronic pred 5 mg daily which he will resume after he is done with Decadron.. Intermittent vomiting and diarrhea at home for the past 2 months with early satiety- concern for gastroparesis given his diabetes but DM is well controlled. Recommended outpatient GI for endoscopy, followed by gastric emptying study if unremarkable. Seen by GI-patient follow-up for GI EGD/colonoscopy. H/o CAD status post CABG/stent- on ASA, plavix, betablocker, statin PAF on Eliquis- currently NSR HTN- BP stable. H/o thyroid cancer status post surgery/radioablation with postsurgical hypothyroidism- on synthroid. TSH 0.24, fT4 normal- likely related to acute illness. Follow up TSH as OP once patient recovers DM2 HA1c of 6.9 last July 2022-continue home meds GERD- on PPI BPH- on flomax and proscar Patient feels much better with only symptoms. Cough improved. Ambulating in the room without issues. No more nausea, vomiting or diarrhea. He is comfortable and stable for discharge home. Total Time Total Time Spent Total Time Spent (In Minutes): 40 Discharge Plan Discharge Items Patient Disposition: Home - Self-Care Reason For Visit: SEPSIS, COVID Discharge Diagnosis: Covid 19 pneumonia, N/V/diarrhea, hypomagnesemia Condition on Discharge: Good Activity: Resume your previous activity Non-emergency contact: Primary Care Provider Call non-emergency contact if: you have any medication questions, your symptoms worsen and you have a fever Follow-up/Referrals: Abundio Melissa MD [Primary Care Provider] - (Date & Time 08/11/2022 11:00 AM Provider Abundio Melissa III, MD [facility] ) Diet: Carb Consistent or DM2 Addtl Attending Provider Instructions: Take decadron daily for 5 days. Once you are done, you can resume your home prednisone. Continue cough medicine, fiber and probiotics. Follow up with the GI doctor for EGD/colonoscopy Follow up with your family doctor Pending Studies at Discharge: No Stand-Alone Forms: [facility], Smoking Cessation Medications and DC Order Prescriptions: New benzonatate 100 mg Capsule 200 mg PO TID Qty: 30 0RF guaifenesin [Mucinex] 600 mg Tablet Extended Release 12hr 600 mg PO Q12 Qty: 20 0RF Saccharomyces boulardii [Florastor] 250 mg Capsule 250 mg PO DAILY Qty: 10 0RF Nutrisource Fiber Packet 1 tbsp PO DAILY Qty: 75 0RF Rx Instructions: mix into at least 4 oz water or juice before administering dexamethasone 6 mg tablet 6 mg PO DAILY Qty: 5 0RF Continued cyanocobalamin (vitamin B-12) 100 mcg tablet 200 mcg PO QAM atorvastatin [Lipitor] 80 mg tablet 80 mg PO HS icosapent ethyl [Vascepa] 1 gram Capsule 2 g PO AMHS alprazolam [Xanax] 0.5 mg Tablet 0.5 mg PO HS nitroglycerin [Nitrostat] 0.4 mg Tablet, Sublingual 0.4 mg Sublingual DIRECTED PRN (Reason: Chest Pain) Rx Instructions: PLACE ONE TABLET UNDER THE TONGUE EVERY 5 MINUTES FOR UP TO 3 DOSES OVER 15 MINUTES IF NEEDED FOR CHEST PAIN levothyroxine [Synthroid] 137 mcg tablet 137 mcg PO QAM ascorbic acid (vitamin C) [Vitamin C] 500 mg Tablet 500 mg PO DAILY ferrous sulfate 325 mg (65 mg iron) tablet 325 mg PO [id number] Rx Instructions: TAKES MON, WED, & FRI. TAKE THIS MEDICATION WITH VITAMIN C ondansetron 4 mg tablet,disintegrating 4 mg PO Q8H PRN (Reason: Nausea) Rx Instructions: ALLOW TABLET TO DISSOLVE ON TONGUE metformin 500 mg tablet extended release 24 hr 500 mg PO AMHS ezetimibe 10 mg tablet 10 mg PO DAILY clopidogrel 75 mg tablet 75 mg PO DAILY Eliquis 5 mg tablet 5 mg PO BID finasteride 5 mg tablet 5 mg PO QAM duloxetine 60 mg capsule,delayed release(DR/EC) 60 mg PO QAM gabapentin 300 mg capsule 300 mg PO HS pantoprazole 40 mg tablet,delayed release (DR/EC) 40 mg PO AMHS metoprolol succinate 50 mg tablet extended release 24 hr 50 mg PO AMHS tramadol 50 mg tablet 50 mg PO DAILY PRN (Reason: mod-severe pain) acetaminophen 500 mg Tablet 1,000 mg PO Q6H PRN (Reason: Fever Or Pain) meclizine 25 mg Tablet 12.5 - 25 mg PO Q6 PRN (Reason: Dizziness) Trulicity 1.5 mg/0.5 mL Pen Injector 1.5 mg SUBCUT WK Rx Instructions: administer on SUNDAYS promethazine 12.5 mg suppository 12.5 mg CA DAILY Qty: 12 0RF tamsulosin 0.4 mg capsule 0.4 mg PO QAM prednisone 5 mg Tablet 5 mg PO QAM Qty: 30 0RF Rx Instructions: Resume after you are done with decadron oxycodone 5 mg tablet 5 mg PO Q6H PRN (Reason: pain) Qty: 12 0RF Discontinued Advanced Probiotic 625 mg (10 billion cell) Capsule 2 cap PO DAILY 7 Days Qty: 14 0RF Discharge Orders: Discharge Order (Routine); Ordered 08/10/22 Ordered By: Desmond Caceres Admission Data Admit Date/Time: 08/06/22 03:21 Attending Provider: Desmond Caceres Admit Provider: Marino Myles Primary Care Provider: Abundio Melissa Other Providers: Marino Myles ; Scott Plaza Jr Other Interventions: Discharge Summary Assessment (RN) Last Done: 08/10/22 10:50
== END 2022-08-10 13:32 | disposition home or self-care (01) | DRG 177 ==
LOC: ED 22:06 → 2N 08-06 03:21 → 3E 08-09 02:24

== ENCOUNTER 2022-10-31 18:01 | Inpatient (IN) ==
[2022-10-31] MEDS ORDERED: ONDANSETRON INJ 2 MG/ML 2 ML VIAL IV STA (18:15)
[2022-10-31] MEDS ORDERED: MoRPHine SULFATE 4 MG/ML 1 ML CARP\\VIAL IV STA (18:15)
[2022-10-31 18:30] LABS: Basophils # (auto) 0.03 K/uL (0-0.2); Basophils % (auto) 0.4 %; Eosinophils # (auto) 0.27 K/uL (0-0.50); Eosinophils % (auto) 3.8 %; Hematocrit (blood only) 44.7 % (42.0-52.0); Hemoglobin 15.3 g/dl (14.0-18.0); Immature Granulocytes # (auto) 0.03 K/uL (0.01-0.20); Immature Granulocytes % (auto) 0.4 %; Lymphocytes # (auto) 0.34 K/uL (1.2-3.4); Lymphocytes % (auto) 4.7 %; Mean Corpuscular Hemoglobin 29.9 pg (25.0-34.0); Mean Corpuscular Hgb Conc 34.2 g/dL (32.0-36.0); Mean Corpuscular Volume 87.3 fL (80.0-100.0); Mean Platelet Volume 9.6 fL (9.4-12.4); Monocytes # (auto) 0.65 K/uL (0.11-0.59); Monocytes % (auto) 9.1 %; Neutrophils # (auto) 5.85 K/uL (1.40-6.50); Neutrophils % (auto) 81.6 %; Platelet Count 255 K/uL (130-400); RDW Standard Deviation 41.6 fL (36.4-46.3); Red Blood Count 5.12 M/uL (4.70-6.10); White Blood Count 7.17 K/ul (4.8-10.8)
[2022-10-31 18:45] LABS: Alanine Aminotransferase 12 U/L (7-52); Albumin Globulin Ratio 1.4 (0.9-2); Albumin Level 4.3 gm/dl (3.4-5.0); Alkaline Phosphatase 94 U/L (34-104); Anion Gap 11 (3-11); Aspartate Aminotransferase 13 U/L (13-39); BUN Creatinine Ratio 10.2 (10-20); Bilirubin,Total 0.8 mg/dl (0.2-1.0); Blood Urea Nitrogen 22 mg/dl (6-23); Calcium 9.3 mg/dl (8.6-10.3); Carbon Dioxide 23 mmol/L (21-32); Chloride 106 mmol/L (98-107); Est GFR (African American) 36.1 ml/min; Est GFR (Non-African American) 31.2 ml/min; Globulin 3.1 gm/dl (2.5-4.0); Glucose 134 mg/dl (70-99(Fasting)); Lipase 34 U/L (11-82); Sodium 140 mmol/L (136-145); Total Protein 7.4 gm/dl (6.0-8.3)
--- NOTE | 2022-10-31 18:47 | Emergency Department Note ---
History of Present Illness General Chief complaint: Back Injury/Pain Stated complaint: BACK PAIN, POSS KIDNEY STONE AND SCIATICA Time Seen by Provider: 10/31/22 18:07 History of Present Illness Maximum Pain Intensity: 9 This is a 66-year-old male presenting to the emergency department for evaluation of left-sided flank pain that began around 12 noon, roughly 6 hours prior to arrival. Patient has a history of kidney stones and his symptoms today do feel similar. He has a history of paroxysmal atrial fibrillation and is on Eliquis. The patient does have prescriptions for tramadol and did take Tylenol as well. Despite this he rates the discomfort a 9/10. No fevers or chills. No vomiting. No gross hematuria. This feels similar to previous kidney stones. Secondarily the patient has had right-sided low back pain with sciatic symptoms for the past month or more. The patient is scheduled to see orthopedics later this week for injections. No loss of bowel or bladder control. Home Medications Medication Instructions Recorded Confirmed Type alprazolam 0.5 mg tablet (Xanax) 0.5 mg PO HS 01/29/18 10/31/22 History nitroglycerin 0.4 mg sublingual 0.4 mg sublingual DIRECTED PRN 01/29/18 10/31/22 History tablet (Nitrostat) Chest Pain icosapent ethyl 1 gram capsule 2 g PO AMHS 12/03/18 10/31/22 History (Vascepa) atorvastatin 80 mg tablet (Lipitor) 80 mg PO HS 09/13/19 10/31/22 History cyanocobalamin (vitamin B-12) 100 200 mcg PO QAM 09/13/19 10/31/22 History mcg tablet ascorbic acid (vitamin C) 500 mg 500 mg PO DAILY 04/24/20 10/31/22 History tablet (Vitamin C) ferrous sulfate 325 mg (65 mg 325 mg PO [id number] 04/24/20 10/31/22 History iron) tablet levothyroxine 137 mcg tablet 137 mcg PO QAM 04/24/20 10/31/22 History (Synthroid) metformin 500 mg tablet,extended 500 mg PO AMHS 04/24/20 10/31/22 History release 24 hr ondansetron 4 mg disintegrating 4 mg PO Q8H PRN Nausea 04/24/20 10/31/22 History tablet ezetimibe 10 mg tablet 10 mg PO DAILY 12/31/20 10/31/22 History apixaban 5 mg tablet (Eliquis) 5 mg PO BID 04/19/21 10/31/22 History clopidogrel 75 mg tablet 75 mg PO DAILY 04/19/21 10/31/22 History duloxetine 60 mg capsule,delayed 60 mg PO QAM 07/31/22 10/31/22 History release finasteride 5 mg tablet 5 mg PO QAM 07/31/22 10/31/22 History gabapentin 300 mg capsule 300 mg PO HS 07/31/22 10/31/22 History meclizine 25 mg tablet 12.5 - 25 mg PO Q6 PRN Dizziness 07/31/22 10/31/22 History metoprolol succinate 50 mg 50 mg PO AMHS 07/31/22 10/31/22 History tablet,extended release 24 hr pantoprazole 40 mg tablet,delayed 40 mg PO AMHS 07/31/22 10/31/22 History release tramadol 50 mg tablet 50 mg PO BID PRN mod-severe pain 07/31/22 10/31/22 History tamsulosin 0.4 mg capsule 0.4 mg PO QAM 08/05/22 10/31/22 History prednisone 5 mg tablet 5 mg PO QAM #30 tabs 08/10/22 10/31/22 Rx benzonatate 100 mg capsule 200 mg PO TID PRN Cough 10/31/22 10/31/22 History evolocumab 140 mg/mL subcutaneous 140 mg subcut .[id number] 10/31/22 10/31/22 History pen injector (Aimee Stephens) fluticasone propionate 50 2 spray intranasal DAILY PRN 10/31/22 10/31/22 History mcg/actuation nasal .allergies spray,suspension glipizide 2.5 mg tablet, extended 2.5 mg PO QAM 10/31/22 10/31/22 History release 24 hr guaifenesin 600 mg tablet, 600 mg PO Q12 PRN Congestion 10/31/22 10/31/22 H istory extended release 12 hr (Mucinex) promethazine 25 mg rectal 25 mg LA Q6 PRN Nausea 10/31/22 10/31/22 History suppository Allergies Allergy/AdvReac Type Severity Reaction Status Date / Time Quinolones Allergy Unknown Unknown Verified 10/31/22 21:02 ofloxacin [From Floxin] AdvReac Severe Hallucinati Verified 10/31/22 21:02 ng empagliflozin AdvReac UTIs Verified 10/31/22 21:02 [From Jardiance] Past Med/Surg History Medical History CAD (coronary artery disease) s/p PCI to LAD due to atretic WHITAKER graft CAD (coronary artery disease) Diabetes Diabetes HTN (hypertension) Hyperlipidemia Hypothyroidism associated with surgical procedure Kidney disease Obesity (BMI 30.0-34.9) Thyroid cancer thyroidectomy in 2001 Thyroidectomy (02/21/13) Surgical History Aortocoronary bypass status 03/2014 : 2x CABG at [facility] History of cardiac cath History of thyroidectomy Stented coronary artery Occluded Staphenous Vein Graft. NIMESH x's 4 Social History Smoking Status: Never smoker Second Hand Exposure: Yes ( smoker); Do You Dip or Chew Tobacco: No; Hx Alcohol Use: No Hx Substance Use: No Preferred Language: Estonian Communication Ability: Effective Social Work Supervisor Required: No Beliefs That Will Affect Care: None marital status: Current Living Situation: Spouse and Family Current Living Situation Comment: House current occupation: Retired Other Information That Helps Us Care for You: No Feels Safe at Home: Yes Safety Concerns: Feels Safe At This Time Assistive Devices: CPAP Review of Systems A total of 10 systems reviewed and were otherwise negative Physical Exam Vital Signs Vital Signs - 24 hr 10/31/22 18:04 10/31/22 18:16 10/31/22 18:20 Temperature 36.0 C L Temperature Source Temporal Artery Scan Pulse Rate 102 H 98 H Pulse Rate [Left Apical] 99 H Pulse Rhythm Regular Pulse Strength Normal Respiratory Rate 20 28 H Respiratory Effort / Characteristics Non-Labored Spontaneous Respiratory Depth Normal Respiratory Pattern Regular Blood Pressure 142/89 H Blood Pressure [Left Arm] 129/89 Blood Pressure Mean 106 Blood Pressure Mean [Left Arm] 102 Blood Pressure Position Sitting Pulse Oximetry 99 98 Oxygen Delivery Method Room Air Room Air Sepsis Recent Fever Within 48 Hours No Sepsis New/Unexplained Change in Mental Status No Sepsis Action Taken by Nursing No Action Required VITALS: Vitals are noted on the nurse's note and reviewed by myself. Vital signs stable. GENERAL: Well-developed, well-nourished, white male, who is in no acute distress and resting comfortably. Patient is cooperative with the examination. HEAD: Normocephalic atraumatic. HEART: Regular rate and rhythm without murmurs gallops or rubs. LUNGS: Clear to auscultation bilaterally without wheezes, rales or rhonchi. No retractions or accessory muscle use. ABDOMEN: Positive normal bowel sounds x 4. Soft, nontender, without masses or organomegaly. No guarding or rebound tenderness. MUSCULOSKELETAL: No muscle atrophy, erythema, or edema noted. Full range of motion in all extremities. NEURO: Patient was alert and oriented to person place and time. CN II through XII grossly intact. Course Administered Medications Ascorbic Acid (Ascorbic Acid 500 Mg Tab) 500 mg PO MoWeFr@0900 [facility] Stop: 12/01/22 09:59 Last Admin: 11/01/22 10:37 Dose: 500 mg Documented By: YANDY Clopidogrel Bisulfate (Clopidogrel Bisulfate 75 Mg Tab) 75 mg PO DAILY [facility] Stop: 12/01/22 08:59 Last Admin: 11/01/22 10:36 Dose: 75 mg Documented By: YANDY Duloxetine HCl (Duloxetine Hcl 60 Mg Cap) [facility] [place]: 12/01/22 08:59 Last Admin: 11/01/22 10:36 Dose: 60 mg Documented By: YANDY Ezetimibe (Ezetimibe 10 Mg Tablet) 10 mg PO DAILY [facility] Stop: 12/01/22 08:59 Last Admin: 11/01/22 10:36 Dose: 10 mg Documented By: YANDY Ferrous Sulfate (Ferrous Sulfate 325 Mg Tab) 325 mg PO MoWeFr@0900 [facility] Stop: 12/01/22 09:59 Last Admin: 11/01/22 10:37 Dose: 325 mg Documented By: YANDY Finasteride (Finasteride 5 Mg Tab) 5 mg PO QAM [facility] Stop: 12/01/22 08:59 Last Admin: 11/01/22 10:36 Dose: 5 mg Documented By: YANDY Hydromorphone HCl (Hydromorphone Inj 0.5 Mg/0.5 Ml Syr) 0.5 mg IV Q3H PRN PRN Reason: Pain Stop: 11/14/22 20:36 Last Admin: 11/01/22 17:57 Dose: 0.5 mg Documented By: YANDY Lactated Ringer's (Lr) 1,000 mls @ 100 mls/hr IV .Q10H [facility] Stop: 11/02/22 05:59 Last Admin: 11/01/22 17:10 Dose: 100 mls/hr Documented By: Infusion: 11/01/22 17:10 Dose: 100 mls/hr Documented By: Admin: 11/01/22 10:38 Dose: 100 mls/hr Documented By: YANDY Insulin Aspart (Insulin Aspart Per Unit Charge) 0 units SC [facility] Stop: 12/01/22 11:29 Last Admin: 11/01/22 17:33 Dose: 6 units Documented By: YANDY Co-signed By: [id number] Admin: 11/01/22 13:07 Dose: 2 units Documented By: YANDY Co-signed By: FRANCIS Levothyroxine Sodium (Levothyroxine Sodium 137 Mcg Tablet) [facility]: 12/01/22 08:59 Last Admin: 11/01/22 10:37 Dose: 137 mcg Documented By: YANDY Metoprolol Succinate (Metoprolol Succ 50mg Ext Rel Tab) 50 mg PO [facility] Stop: 12/01/22 12:44 Last Admin: 11/01/22 12:40 Dose: 50 mg Documented By: YANDY Oxycodone HCl (Oxycodone Hcl Ir 5 Mg Tab (Immediate Release)) 5 - 10 mg PO QID PRN PRN Reason: Pain Stop: 11/14/22 20:36 Last Admin: 11/01/22 14:50 Dose: 5 mg Documented By: Admin: 11/01/22 05:54 Dose: 10 mg Documented By: Admin: 10/31/22 23:57 Dose: 10 mg Documented By: QG Pantoprazole Sodium (Pantoprazole 40 Mg Tab) 40 mg PO [facility] Stop: 12/01/22 08:59 Last Admin: 11/01/22 10:36 Dose: 40 mg Documented By: YANDY Prednisone (Prednisone 5 Mg Tab) 5 mg PO [facility] Stop: 12/01/22 08:59 Last Admin: 11/01/22 10:36 Dose: 5 mg Documented By: YANDY Tamsulosin HCl (Tamsulosin Hcl 0.4 Mg Cap) 0.4 mg PO QAM A[facility] Stop: 12/01/22 08:59 Last Admin: 11/01/22 10:37 Dose: 0.4 mg Documented By: YANDY Discontinued Medications Diatrizoate Meglumine (Diatrizoate Meglumine 30% 100ml Vial) 100 ml INSTIL ONCE ONE Stop: 11/01/22 09:47 Last Admin: 11/01/22 09:51 Dose: 10 ml Documented By: [id number] Lactated Ringer's (Lr) 1,000 mls @ 100 mls/hr IV .Q10H ONE Stop: 11/01/22 06:26 Last Infusion: 11/01/22 11:03 Dose: 0 mls/hr Documented By: Admin: 10/31/22 21:43 Dose: 100 mls/hr Documented By: PRIMARY TEACHING ASSISTANT Magnesium Sulfate/Dextrose (Magnesium Sulfate / D5w) 1 gm in 100 mls @ 50 mls/hr IV ONE ONE Stop: 11/01/22 05:10 Last Infusion: 11/01/22 06:00 Dose: 0 mls/hr Documented By: Admin: 11/01/22 03:32 Dose: 50 mls/hr Documented By: QG Ceftriaxone Sodium 2,000 mg/ (Dextrose) 70 mls @ 100 mls/hr IV NOW ONE; P rotocol Stop: 11/01/22 09:32 Last Infusion: 11/01/22 11:03 Dose: 0 mls/hr Documented By: Admin: 11/01/22 09:26 Dose: 100 mls/hr Documented By: VALERIE Insulin Aspart (Insulin Aspart Per Unit Charge) 0 units SC Q6 ANA Stop: 11/30/22 23:29 Last Admin: 11/01/22 05:51 Dose: Not Given Documented By: Admin: 10/31/22 23:58 Dose: Not Given Documented By: QG Metoprolol Succinate (Metoprolol Succ 50mg Ext Rel Tab) 50 mg PO NOW STA Stop: 10/31/22 20:38 Last Admin: 10/31/22 21:43 Dose: 50 mg Documented By: PRIMARY TEACHING ASSISTANT Metoprolol Succinate (Metoprolol Succ 50mg Ext Rel Tab) 12.5 mg PO AMHS [facility] Stop: 12/01/22 08:59 Last Admin: 11/01/22 12:36 Dose: Not Given Documented By: MTM Morphine Sulfate (Morphine Sulfate 4 Mg/Ml 1 Ml Carp\Vial) 4 mg IV NOW STA Stop: 10/31/22 18:16 Last Admin: 10/31/22 18:27 Dose: 4 mg Documented By: DM Morphine Sulfate (Morphine Sulfate 4 Mg/Ml 1 Ml Carp\Vial) 4 mg IV Q30M PRN PRN Reason: Pain Stop: 11/14/22 19:43 Last Admin: 10/31/22 21:42 Dose: 4 mg Documented By: PRIMARY TEACHING ASSISTANT Admin: 10/31/22 20:13 Dose: 4 mg Documented By: QGV Ondansetron HCl (Ondansetron Inj 2 Mg/Ml 2 Ml Vial) 4 mg IV NOW STA Stop: 10/31/22 18:16 Last Admin: 10/31/22 18:27 Dose: 4 mg Documented By: [facility] Medical Decision Making Differential Diagnosis differential diagnosis includes, but is not limited to: Sprain, strain, fract ure, dislocation, subluxation, contusion, and others Laboratory Data 10/31/22 18:17 10/31/22 18:17 Lab Results 10/31/22 10/31/22 10/31/22 Range/Units 18:17 18:17 18:17 WBC 7.17 (4.8-10.8) K/ul RBC 5.12 (4.70-6.10) M/uL Hgb 15.3 (14.0-18.0) g/dl Hct 44.7 (42.0-52.0) % MCV 87.3 (80.0-100.0) fL MCH 29.9 (25.0-34.0) pg MCHC 34.2 (32.0-36.0) g/dL RDW Std Deviation 41.6 (36.4-46.3) fL RDW Coeff of Cuco 13.0 (11.5-14.5) % Plt Count 255 (130-400) K/uL MPV 9.6 (9.4-12.4) fL Immature Gran % (Auto) 0.4 % Neut % (Auto) 81.6 % Lymph % (Auto) 4.7 % Garza % (Auto) 9.1 % Eos % (Auto) 3.8 % Baso % (Auto) 0.4 % Neut # (Auto) 5.85 (1.40-6.50) K/uL Lymph # (Auto) 0.34 L (1.2-3.4) K/uL Garza # (Auto) 0.65 H (0.11-0.59) K/uL Eos # (Auto) 0.27 (0-0.50) K/uL Baso # (Auto) 0.03 (0-0.2) K/uL Immature Gran # (Auto) 0.03 (0.01-0.20) K/uL PT 11.3 (9.0-12.0) Seconds INR 1.0 (0.9-1.1) APTT 30.6 (21.0-31.0) Seconds PTT Ratio 1.1 Sodium 140 (136-145) mmol/L Potassium 4.0 (3.5-5.1) mmol/L Chloride 106 (98-107) mmol/L Carbon Dioxide 23 (21-32) mmol/L Anion Gap 11 (3-11) BUN 22 (6-23) mg/dl Creatinine 2.15 H (0.6-1.4) mg/dl Est Cr Clr Drug Dosing Not Reportable Est GFR ( Amer) 36.1 ml/min Est GFR (Non-Af Amer) 31.2 ml/min BUN/Creatinine Ratio 10.2 (10-20) Glucose 134 H (70-99(Fasting)) mg/dl Calcium 9.3 (8.6-10.3) mg/dl Magnesium (1.7-2.4) mg/dl Total Bilirubin 0.8 (0.2-1.0) mg/dl AST 13 (13-39) U/L ALT 12 (7-52) U/L Alkaline Phosphatase 94 (34-104) U/L Total Protein 7.4 (6.0-8.3) gm/dl Albumin 4.3 (3.4-5.0) gm/dl Globulin 3.1 (2.5-4.0) gm/dl Albumin/Globulin Ratio 1.4 (0.9-2) Lipase 34 (11-82) U/L Urine Color Urine Appearance (Clear) Urine pH (4.5-7.5) Ur Specific [employer] Mdl (1.000-1.030) Urine Protein (Negative) Urine Glucose (UA) (Negative) Urine Ketones (Negative) Urine Blood (Negative) Urine Nitrite (Negative) Urine Bilirubin (Negative) Urine Urobilinogen (Negative) Ur Leukocyte Esterase (Negative) Urine WBC (Auto) (0-5) /hpf Urine RBC (Auto) (0-4) /hpf U Hyaline Cast (Auto) (0-5) /lpf U Epithel Cells (Auto) (0-5) /lpf Urine Bacteria (Auto) (Negative) SARS-CoV-2, RNA, NAAT (NEGATIVE) 10/31/22 10/31/22 10/31/22 Range/Units 19:48 20:00 20:15 WBC (4.8-10.8) K/ul RBC (4.70-6.10) M/uL Hgb (14.0-18.0) g/dl Hct (42.0-52.0) % MCV (80.0-100.0) fL MCH (25.0-34.0) pg MCHC (32.0-36.0) g/dL RDW Std Deviation (36.4-46.3) fL RDW Coeff of Cuco (11.5-14.5) % Plt Count (130-400) K/uL MPV (9.4-12.4) fL Immature Gran % (Auto) % Neut % (Auto) % Lymph % (Auto) % Garza % (Auto) % Eos % (Auto) % Baso % (Auto) % Neut # (Auto) (1.40-6.50) K/uL Lymph # (Auto) (1.2-3.4) K/uL Garza # (Auto) (0.11-0.59) K/uL Eos # (Auto) (0-0.50) K/uL Baso # (Auto) (0-0.2) K/uL Immature Gran # (Auto) (0.01-0.20) K/uL PT (9.0-12.0) Seconds INR (0.9-1.1) APTT (21.0-31.0) Seconds PTT Ratio Sodium (136-145) mmol/L Potassium (3.5-5.1) mmol/L Chloride (98-107) mmol/L Carbon Dioxide (21-32) mmol/L Anion Gap (3-11) BUN (6-23) mg/dl Creatinine (0.6-1.4) mg/dl Est Cr Clr Drug Dosing Est GFR ( Amer) ml/min Est GFR (Non-Af Amer) ml/min BUN/Creatinine Ratio (10-20) Glucose (70-99(Fasting)) mg/dl Calcium (8.6-10.3) mg/dl Magnesium 1.6 L (1.7-2.4) mg/dl Total Bilirubin (0.2-1.0) mg/dl AST (13-39) U/L ALT (7-52) U/L Alkaline Phosphatase (34-104) U/L Total Protein (6.0-8.3) gm/dl Albumin (3.4-5.0) gm/dl Globulin (2.5-4.0) gm/dl Albumin/Globulin Ratio (0.9-2) Lipase (11-82) U/L Urine Color Yellow Urine Appearance Clear (Clear) Urine pH 5.5 (4.5-7.5) Ur Specific [employer] Mdl 1.017 (1.000-1.030) Urine Protein Trace H (Negative) Urine Glucose (UA) Negative (Negative) Urine Ketones Negative (Negative) Urine Blood 3+ H (Negative) Urine Nitrite Negative (Negative) Urine Bilirubin Negative (Negative) Urine Urobilinogen Negative (Negative) Ur Leukocyte Esterase Negative (Negative) Urine WBC (Auto) 1-5 (0-5) /hpf Urine RBC (Auto) >30 H (0-4) /hpf U Hyaline Cast (Auto) 1-5 (0-5) /lpf U Epithel Cells (Auto) 0-5 (0-5) /lpf Urine Bacteria (Auto) Negative (Negative) SARS-CoV-2, RNA, NAAT NEGATIVE (NEGATIVE) Imaging Data Radiologist's Impression: Abdomen/Pelvis CT 10/31/22 18:15 CT SCAN OF THE ABDOMEN AND PELVIS WITHOUT IV CONTRAST CLINICAL HISTORY: Left flank pain. COMPARISON STUDY: Abdominal CT dated 08/05/2022. TECHNIQUE: CT scan of the abdomen and pelvis is performed from the lung bases to the proximal femora. Images are reviewed in the axial, sagittal, and coronal planes. IV contrast was not administered for this examination. A dose lowering technique was utilized adhering to the principles of ALARA. CT DOSE: 1192.92 mGy.cm FINDINGS: Lung bases: The patient is status post midline sternotomy. The heart is normal in size and without pericardial effusion. The coronary arteries are densely calcified. The lung bases are clear noting bibasilar scarring/atelectasis. Liver: The unenhanced liver is normal in size, contour, and attenuation. There is no intrahepatic biliary ductal dilatation. Gallbladder: Surgically absent noting clips in the gallbladder fossa. Spleen: Normal in size and attenuation. Pancreas: Unremarkable. Adrenal glands: Unremarkable. Kidneys: The unenhanced kidneys are normal in size. There is a 9 mm obstructing calculus versus 2 adjacent calculi in the distal left ureter at the level of the pelvic inlet seen on image #227. This causes [id number] left hydroureteronephrosis. There is associated left-sided perinephric stranding and trace fluid. There are numerous (greater than 20) additional nonobstructing left renal calculi which measure up to 6 mm. There are numerous (at least 10) nonobstructing right renal calculi which measure up to 5 mm. No right ureteral stone is seen and there is no right-sided hydronephrosis. There is no evidence of contour deforming renal mass lesion. Abdominal vasculature: The abdominal aorta is normal in course and caliber noting moderate atherosclerotic calcification. Bowel: There is mild colonic diverticulosis without CT evidence of acute diverticulitis. No bowel obstruction is seen. A duodenal diverticulum is incidentally noted. The appendix is well-visualized and normal. Peritoneum: There is no intraperitoneal free air or abdominal ascites. There is a fat-containing umbilical hernia. A fat-containing supraumbilical hernia is seen on image #104. Lymphadenopathy: None. Pelvic viscera: The prostate gland is diminutive and heterogeneous. The bladder wall appears thickened/trabeculated indicating chronic outlet obstruction. Skeletal structures: The skeletal structures are osteopenic. There is mild to moderate lumbosacral spondylosis. Degenerative change is also seen in the sacroiliac joints. No lytic or blastic lesions are seen. IMPRESSION: 1. There is a 9 mm obstructing calculus versus 2 adjacent calculi in the distal left ureter as above. This causes mild to moderate left hydroureteronephrosis. 2. Numerous additional bilateral nonobstructing renal calculi as above. 3. Colonic diverticulosis without CT evidence of acute diverticulitis. 4. Additional findings as above. ACT 112: Negative or not required by law. Electronically signed by: Mario Loving M.D. 10/31/2022 7:14 PM Chest X-Ray 10/31/22 19:52 SINGLE VIEW CHEST CLINICAL HISTORY: Renal failure FINDINGS: An AP, portable, upright chest radiograph is compared to study dated 08/12/2022. The patient is status post midline sternotomy. The heart is enlarged. The pulmonary vasculature is noncongested. Chronic interstitial thickening is similar to previous. There is mild bibasilar scarring/atelectasis. The lungs and pleural spaces are otherwise clear. No pneumothorax is seen. The skeletal structures are osteopenic. The bony thorax is grossly intact. Cholecystectomy clips are noted in the right upper quadrant. IMPRESSION: Mild cardiomegaly with no active disease in the chest. ACT 112: Negative or not required by law. Electronically signed by: Mario Loving M.D. 10/31/2022 10:02 PM MDM Narrative Physical exam and history were performed. Nursing notes, EMR, and Medication List were personally reviewed. No social concerns were identified as barriers to patients care. Patient appears to have left flank pain bringing him to the ER. He does have past history of kidney stones and feels this is similar. He is not able to tolerate NSAIDs as he is on blood thinners. IV access was established and labs were obtained. Patient was hydrated with normal saline and given IV morphine and IV Zofran for comfort. CT scan of the abdomen and pelvis was gathered. Patient's blood work is as above and was reviewed. He does not have a significantly elevated white blood cell count, gross anemia, or bandemia. He does have an elevation of his BUN and creatinine concerning for some acute kidney injury. CT scan was reviewed by myself and radiology and appears to show a very large obstructing 9 mm ureteral stone. This would account for his discomfort. I did reach out to the on-call urology service, who would like him admitted through medicine due to his underlying medical conditions. Tentative plan is to keep the patient n.p.o. after midnight and take him to the OR for more definitive care in the morning. Case was discussed with the on-call hospitalist team. Please see their dictation for further patient course, plan, disposition. The chart was completed utilizing [employer] Speech Voice Recognition Software. Grammatical errors, random word insertions, pronoun errors, and incomplete sentences are an occasional consequence of this system due to software limitations, ambient noise, and hardware issues. Any formal questions or concerns about the content, text, or information contained within the body of this dictation should be directly addressed to the provider for clarification. . Impression & Plan Left ureteral calculus, ARF (acute renal failure) Discharge Plan Visit Data Chief Complaint: Back Injury/Pain Stated Complaint: BACK PAIN, POSS KIDNEY STONE AND SCIATICA ED Provider: Gerardo Mena ED Midlevel Provider: Edmundo Santos Discharge Problem: Left ureteral calculus, ARF (acute renal failure) Patient Disposition: Admitted As Inpatient Discharge Instructions Interventions: ED Discharge Assessment Last Done: 10/31/22 23:05
[2022-10-31 19:04] LABS: Partial Thromboplastin Ratio 1.1; Partial Thromboplastin Time 30.6 Seconds (21.0-31.0); Prothrombin Time 11.3 Seconds (9.0-12.0)
--- NOTE | 2022-10-31 19:16 | CT Scan Report ---
CT SCAN OF THE ABDOMEN AND PELVIS WITHOUT IV CONTRAST CLINICAL HISTORY: Left flank pain. COMPARISON STUDY: Abdominal CT dated 08/05/2022. TECHNIQUE: CT scan of the abdomen and pelvis is performed from the lung bases to the proximal femora. Images are reviewed in the axial, sagittal, and coronal planes. IV contrast was not administered for this examination. A dose lowering technique was utilized adhering to the principles of ALARA. CT DOSE: 1192.92 mGy.cm FINDINGS: Lung bases: The patient is status post midline sternotomy. The heart is normal in size and without pe ricardial effusion. The coronary arteries are densely calcified. The lung bases are clear noting biba silar scarring/atelectasis. Liver: The unenhanced liver is normal in size, contour, and attenuation. There is no intrahepatic michael iary ductal dilatation. Gallbladder: Surgically absent noting clips in the gallbladder fossa. Spleen: Normal in size and attenuation. Pancreas: Unremarkable. Adrenal glands: Unremarkable. Kidneys: The unenhanced kidneys are normal in size. There is a 9 mm obstructing calculus versus 2 adj acent calculi in the distal left ureter at the level of the pelvic inlet seen on image #227. This cau ses [id number] left hydroureteronephrosis. There is associated left-sided perinephric stranding and trace fluid. There are numerous (greater than 20) additional nonobstructing left renal calculi w hich measure up to 6 mm. There are numerous (at least 10) nonobstructing right renal calculi which me asure up to 5 mm. No right ureteral stone is seen and there is no right-sided hydronephrosis. There i s no evidence of contour deforming renal mass lesion. Abdominal vasculature: The abdominal aorta is normal in course and caliber noting moderate atheroscle rotic calcification. Bowel: There is mild colonic diverticulosis without CT evidence of acute diverticulitis. No bowel obs truction is seen. A duodenal diverticulum is incidentally noted. The appendix is well-visualized and normal. Peritoneum: There is no intraperitoneal free air or abdominal ascites. There is a fat-containing umbi lical hernia. A fat-containing supraumbilical hernia is seen on image #104. Lymphadenopathy: None. Pelvic viscera: The prostate gland is diminutive and heterogeneous. The bladder wall appears thickene d/trabeculated indicating chronic outlet obstruction. Skeletal structures: The skeletal structures are osteopenic. There is mild to moderate lumbosacral sp ondylosis. Degenerative change is also seen in the sacroiliac joints. No lytic or blastic lesions are seen. IMPRESSION: 1. There is a 9 mm obstructing calculus versus 2 adjacent calculi in the distal left ureter as above. This causes mild to moderate left hydroureteronephrosis. 2. Numerous additional bilateral nonobstructing renal calculi as above. 3. Colonic diverticulosis without CT evidence of acute diverticulitis. 4. Additional findings as above. ACT 112: Negative or not required by law. Electronically signed by: Mario Loving M.D. 10/31/2022 7:14 PM
[2022-10-31] MEDS: MoRPHine SULFATE 4 MG/ML 1 ML CARP\\VIAL IV PRN ×2 (20:13→21:42)
[2022-10-31 20:14] LABS: Appearance Urine Clear (Clear); Bacteria Urine Automated Negative (Negative); Bilirubin Urine Negative (Negative); Blood Urine 3+ (Negative); Color Urine Yellow; Epithelial Cell Urine Auto 0-5 /lpf (0-5); Glucose Urine UA Negative (Negative); Ketones Urine Negative (Negative); Leukocyte Esterase Urine Negative (Negative); Nitrite Urine Negative (Negative); Protein Urine Trace (Negative); RBC Urine Automated >30 /hpf (0-4); Specific Gravity Urine 1.017 (1.000-1.030); Urobilinogen Urine Negative (Negative); pH Urine 5.5 (4.5-7.5)
[2022-10-31] MEDS ORDERED: LACTATED RINGER'S 1,000 ML IV ONE (20:27)
--- NOTE | 2022-10-31 20:33 | Emergency Department Note ---
ED Visit Note I was consulted by the Advanced Practice Provider Edmundo Santos PA-C. I saw the patient personally and performed a substantive portion of the visit. This includes aspects of the HPI, MDM, diagnostic interpretations, and disposition/plan. Patient presented due to concern for back discomfort and was noted to have a 9 mm obstructing stone. The patient was admitted to the medicine service. Upon reassessment the patient was feeling improved after pain medication. .
--- NOTE | 2022-10-31 20:34 | History & Physical Report ---
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 Matthews who recommends n.p.o. status after midnight in anticipation of procedural intervention tomorrow.) Hold Eliquis until patient seen by urology Recheck TSH Basal bolus insulin adjusted for n.p.o. status, ISS BG goal 1 10-1 40 DVT prophylaxis. SCDs while Eliquis on hold Full code Patient requests for to be updated of his progress. Ms. Libertad Hogan, contact #[phone]. Text document was generated using [employer] voice recognition software. It may contain grammatical or spelling errors. Kindly contact undersigned for clarification of any documentation item in question. History of Present Illness Chief Complaint: Left flank pain Primary Care Provider: Abundio Melissa MD History obtained from patient and records. Medical history significant for CAD status post CABG/stent, PAF on Eliquis, valvular heart disease (mild MR/AR), hypertension, hyperlipidemia, pulmonary sarcoidosis on chronic steroid Rx, thyroid cancer status post surgery/radioablation, DM2 on oral medications, postsurgical hypothyroidism, GERD, urolithiasis. Last confinement July 2022 for COVID-19 pneumonia. Patient completed Decadron and remdesivir course. Patient experience achy left flank pain reminiscent of kidney stone pain around noontime today. Some nausea, no emesis. No fever, no chills. No gross hematuria. No headache, no chest pain, no SOB. Patient consulted ER for evaluation. 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 Allergies Allergy/AdvReac Type Severity Reaction Status Date / Time Quinolones Allergy Unknown Unknown Verified 10/31/22 21:02 ofloxacin [From Floxin] AdvReac Severe Hallucinati Verified 10/31/22 21:02 ng empagliflozin AdvReac UTIs Verified 10/31/22 21:02 [From Jardiance] Home Medications Medication Instructions Recorded Confirmed Type alprazolam 0.5 mg tablet (Xanax) 0.5 mg PO HS 01/29/18 10/31/22 History nitroglycerin 0.4 mg sublingual 0.4 mg sublingual DIRECTED PRN 01/29/18 10/31/22 History tablet (Nitrostat) Chest Pain icosapent ethyl 1 gram capsule 2 g PO AMHS 12/03/18 10/31/22 History (Vascepa) atorvastatin 80 mg tablet (Lipitor) 80 mg PO HS 09/13/19 10/31/22 History cyanocobalamin (vitamin B-12) 100 200 mcg PO QAM 09/13/19 10/31/22 History mcg tablet ascorbic acid (vitamin C) 500 mg 500 mg PO DAILY 04/24/20 10/31/22 History tablet (Vitamin C) ferrous sulfate 325 mg (65 mg 325 mg PO 3XWK 04/24/20 10/31/22 History iron) tablet levothyroxine 137 mcg tablet 137 mcg PO QAM 04/24/20 10/31/22 History (Synthroid) metformin 500 mg tablet,extended 500 mg PO AMHS 04/24/20 10/31/22 History release 24 hr ondansetron 4 mg disintegrating 4 mg PO Q8H PRN Nausea 04/24/20 10/31/22 History tablet ezetimibe 10 mg tablet 10 mg PO DAILY 12/31/20 10/31/22 History apixaban 5 mg tablet (Eliquis) 5 mg PO BID 04/19/21 10/31/22 History clopidogrel 75 mg tablet 75 mg PO DAILY 04/19/21 10/31/22 History duloxetine 60 mg capsule,delayed 60 mg PO QAM 07/31/22 10/31/22 History release finasteride 5 mg tablet 5 mg PO QAM 07/31/22 10/31/22 History gabapentin 300 mg capsule 300 mg PO HS 07/31/22 10/31/22 History meclizine 25 mg tablet 12.5 - 25 mg PO Q6 PRN Dizziness 07/31/22 10/31/22 History metoprolol succinate 50 mg 50 mg PO AMHS 07/31/22 10/31/22 History tablet,extended release 24 hr pantoprazole 40 mg tablet,delayed 40 mg PO AMHS 07/31/22 10/31/22 History release tramadol 50 mg tablet 50 mg PO BID PRN mod-severe pain 07/31/22 10/31/22 History tamsulosin 0.4 mg capsule 0.4 mg PO QAM 08/05/22 10/31/22 History prednisone 5 mg tablet 5 mg PO QAM #30 tabs 08/10/22 10/31/22 Rx benzonatate 100 mg capsule 200 mg PO TID PRN Cough 10/31/22 10/31/22 History evolocumab 140 mg/mL subcutaneous 140 mg subcut .[id number] 10/31/22 10/31/22 History pen injector (Aimee Stephens) fluticasone propionate 50 2 spray intranasal DAILY PRN 10/31/22 10/31/22 History mcg/actuation nasal .allergies spray,suspension glipizide 2.5 mg tablet, extended 2.5 mg PO QAM 10/31/22 10/31/22 History release 24 hr guaifenesin 600 mg tablet, 600 mg PO Q12 PRN Congestion 10/31/22 10/31/22 History extended release 12 hr (Mucinex) promethazine 25 mg rectal 25 mg [place] Q6 PRN Nausea 10/31/22 10/31/22 History suppository Past Med/Surg History Medical History CAD (coronary artery disease) s/p PCI to LAD due to atretic WHITAKER graft CAD (coronary artery disease) Diabetes Diabetes HTN (hypertension) Hyperlipidemia Hypothyroidism associated with surgical procedure Kidney disease Obesity (BMI 30.0-34.9) Thyroid cancer thyroidectomy in 2001 Thyroidectomy (02/21/13) Surgical History Aortocoronary bypass status 03/2014 : 2x CABG [place] [facility] [place] History of cardiac cath History of thyroidectomy Stented coronary artery Occluded Staphenous Vein Graft. NIMESH x's 4 Social History Smoking Status: Never smoker Second Hand Exposure: Yes ( smoker); Do You Dip or Chew Tobacco: No; Hx Alcohol Use: No Hx Substance Use: No Preferred Language: Cameroonian Communication Ability: Effective Sap Analyst Required: No Beliefs That Will Affect Care: None marital status: Current Living Situation: Spouse and Family Current Living Situation Comment: House current occupation: Retired Other Information That Helps Us Care for You: No Feels Safe at Home: Yes Safety Concerns: Feels Safe At This Time Assistive Devices: Cane, Contacts and Oxygen - at Night Review of Systems Review of Systems: As per HPI, all other systems reviewed and negative Physical Exam Physical Exam: GENERAL: Comfortable, pleasant, no respiratory distress SKIN: Normal color, warm HEENT: [place] palpebral conjunctivae, no ptosis, dry buccal mucosa NECK : Supple, no tenderness CHEST : Decreased breath sounds, no tenderness HEART : Tachycardic, no obvious murmurs ABDOMEN: Some distention, nontender EXTREMITIES : No LE swelling/tenderness, no other conspicuous deformities noted NEUROLOGIC : Coherent, no facial asymmetry, no other gross focality Results & Data Results & Data Vital Signs (Past 12 Hours) Vital Signs Temp Pulse Pulse Resp BP BP Pulse Ox 10/31/22 20:16 105 H 95 10/31/22 18:20 98 H 10/31/22 18:16 99 H 28 H 129/89 98 10/31/22 18:04 36.0 C L 102 H 20 142/89 H 99 O2 Del Method 10/31/22 20:16 Room Air 10/31/22 18:20 10/31/22 18:16 Room Air 10/31/22 18:04 Room Air Laboratory Results Laboratory Results WBC 7.17 K/ul (4.8-10.8) 10/31/22 18:17 RBC 5.12 M/uL (4.70-6.10) 10/31/22 18:17 Hgb 15.3 g/dl (14.0-18.0) 10/31/22 18:17 Hct 44.7 % (42.0-52.0) 10/31/22 18:17 MCV 87.3 fL (80.0-100.0) 10/31/22 18:17 MCH 29.9 pg (25.0-34.0) 10/31/22 18:17 MCHC 34.2 g/dL (32.0-36.0) 10/31/22 18:17 RDW Std Deviation 41.6 fL (36.4-46.3) 10/31/22 18:17 RDW Coeff of Cuco 13.0 % (11.5-14.5) 10/31/22 18:17 Plt Count 255 K/uL (130-400) 10/31/22 18:17 MPV 9.6 fL (9.4-12.4) 10/31/22 18:17 Immature Gran % (Auto) 0.4 % 10/31/22 18:17 Neut % (Auto) 81.6 % 10/31/22 18:17 Lymph % (Auto) 4.7 % 10/31/22 18:17 [place] % (Auto) 9.1 % 10/31/22 18:17 Eos % (Auto) 3.8 % 10/31/22 18:17 Baso % (Auto) 0.4 % 10/31/22 18:17 Neut # (Auto) 5.85 K/uL (1.40-6.50) 10/31/22 18:17 Lymph # (Auto) 0.34 K/uL (1.2-3.4) L 10/31/22 18:17 [place] # (Auto) 0.65 K/uL (0.11-0.59) H 10/31/22 18:17 Eos # (Auto) 0.27 K/uL (0-0.50) 10/31/22 18:17 Baso # (Auto) 0.03 K/uL (0-0.2) 10/31/22 18:17 Immature Gran # (Auto) 0.03 K/uL (0.01-0.20) 10/31/22 18:17 PT 11.3 Seconds (9.0-12.0) 10/31/22 18:17 INR 1.0 (0.9-1.1) 10/31/22 18:17 APTT 30.6 Seconds (21.0-31.0) 10/31/22 18:17 PTT Ratio 1.1 10/31/22 18:17 Sodium 140 mmol/L (136-145) 10/31/22 18:17 Potassium 4.0 mmol/L (3.5-5.1) 10/31/22 18:17 Chloride 106 mmol/L (98-107) 10/31/22 18:17 Carbon Dioxide 23 mmol/L (21-32) 10/31/22 18:17 Anion Gap 11 (3-11) 10/31/22 18:17 BUN 22 mg/dl (6-23) 10/31/22 18:17 Creatinine 2.15 mg/dl (0.6-1.4) H 10/31/22 18:17 Est Cr Clr Drug Dosing Not Reportable 10/31/22 18:17 Est GFR ( Amer) 36.1 ml/min 10/31/22 18:17 Est GFR (Non-Af Amer) 31.2 ml/min 10/31/22 18:17 BUN/Creatinine Ratio 10.2 (10-20) 10/31/22 18:17 Glucose 134 mg/dl (70-99(Fasting)) H 10/31/22 18:17 Calcium 9.3 mg/dl (8.6-10.3) 10/31/22 18:17 Magnesium 1.6 mg/dl (1.7-2.4) L 10/31/22 20:00 Total Bilirubin 0.8 mg/dl (0.2-1.0) 10/31/22 18:17 AST 13 U/L (13-39) 10/31/22 18:17 ALT 12 U/L (7-52) 10/31/22 18:17 Alkaline Phosphatase 94 U/L (34-104) 10/31/22 18:17 Total Protein 7.4 gm/dl (6.0-8.3) 10/31/22 18:17 Albumin 4.3 gm/dl (3.4-5.0) 10/31/22 18:17 Globulin 3.1 gm/dl (2.5-4.0) 10/31/22 18:17 Albumin/Globulin Ratio 1.4 (0.9-2) 10/31/22 18:17 Lipase 34 U/L (11-82) 10/31/22 18:17 Urine Color Yellow 10/31/22 19:48 Urine Appearance Clear (Clear) 10/31/22 19:48 Urine pH 5.5 (4.5-7.5) 10/31/22 19:48 Ur Specific [place] 1.017 (1.000-1.030) 10/31/22 19:48 Urine Protein Trace (Negative) H 10/31/22 19:48 Urine Glucose (UA) Negative (Negative) 10/31/22 19:48 Urine Ketones Negative (Negative) 10/31/22 19:48 Urine Blood 3+ (Negative) H 10/31/22 19:48 Urine Nitrite Negative (Negative) 10/31/22 19:48 Urine Bilirubin Negative (Negative) 10/31/22 19:48 Urine Urobilinogen Negative (Negative) 10/31/22 19:48 Ur Leukocyte Esterase Negative (Negative) 10/31/22 19:48 Urine WBC (Auto) 1-5 /hpf (0-5) 10/31/22 19:48 Urine RBC (Auto) >30 /hpf (0-4) H 10/31/22 19:48 U Hyaline Cast (Auto) 1-5 /lpf (0-5) 10/31/22 19:48 U Epithel Cells (Auto) 0-5 /lpf (0-5) 10/31/22 19:48 Urine Bacteria (Auto) Negative (Negative) 10/31/22 19:48 Impressions Abdomen/Pelvis CT 10/31/22 18:15 CT SCAN OF THE ABDOMEN AND PELVIS WITHOUT IV CONTRAST CLINICAL HISTORY: Left flank pain. COMPARISON STUDY: Abdominal CT dated 08/05/2022. TECHNIQUE: CT scan of the abdomen and pelvis is performed from the lung bases to the proximal femora. Images are reviewed in the axial, sagittal, and coronal planes. IV contrast was not administered for this examination. A dose lowering technique was utilized adhering to the principles of ALARA. CT DOSE: 1192.92 mGy.cm FINDINGS: Lung bases: The patient is status post midline sternotomy. The heart is normal in size and without pericardial effusion. The coronary arteries are densely calcified. The lung bases are clear noting bibasilar scarring/atelectasis. Liver: The unenhanced liver is normal in size, contour, and attenuation. There is no intrahepatic biliary ductal dilatation. Gallbladder: Surgically absent noting clips in the gallbladder fossa. Spleen: Normal in size and attenuation. Pancreas: Unremarkable. Adrenal glands: Unremarkable. Kidneys: The unenhanced kidneys are normal in size. There is a 9 mm obstructing calculus versus 2 adjacent calculi in the distal left ureter at the level of the pelvic inlet seen on image #227. This causes [id number] left hydroureteronephrosis. There is associated left-sided perinephric stranding and trace fluid. There are numerous (greater than 20) additional nonobstructing left renal calculi which measure up to 6 mm. There are numerous (at least 10) nonobstructing right renal calculi which measure up to 5 mm. No right ureteral stone is seen and there is no right-sided hydronephrosis. There is no evidence of contour deforming renal mass lesion. Abdominal vasculature: The abdominal aorta is normal in course and caliber noting moderate atherosclerotic calcification. Bowel: There is mild colonic diverticulosis without CT evidence of acute diverticulitis. No bowel obstruction is seen. A duodenal diverticulum is incidentally noted. The appendix is well-visualized and normal. Peritoneum: There is no intraperitoneal free air or abdominal ascites. There is a fat-containing umbilical hernia. A fat-containing supraumbilical hernia is seen on image #104. Lymphadenopathy: None. Pelvic viscera: The prostate gland is diminutive and heterogeneous. The bladder wall appears thickened/trabeculated indicating chronic outlet obstruction. Skeletal structures: The skeletal structures are osteopenic. There is mild to moderate lumbosacral spondylosis. Degenerative change is also seen in the sacroiliac joints. No lytic or blastic lesions are seen. IMPRESSION: 1. There is a 9 mm obstructing calculus versus 2 adjacent calculi in the distal left ureter as above. This causes mild to moderate left hydroureteronephrosis. 2. Numerous additional bilateral nonobstructing renal calculi as above. 3. Colonic diverticulosis without CT evidence of acute diverticulitis. 4. Additional findings as above. ACT 112: Negative or not required by law. Electronically signed by: Mario Loving M.D. 10/31/2022 7:14 PM Diagnostic Findings Chest x-ray as per my interpretation cardiomegaly EKG as per my interpretation : Rate 105, sinus tachycardia, normal axis, T wave abnormalities inferior leads, PVCs
[2022-10-31] MEDS ORDERED: METOPROLOL SUCC 50MG EXT REL TAB PO STA (20:37)
[2022-10-31] MEDS ORDERED: HYDROmorphone INJ 0.5 MG/0.5 ML SYR IV PRN (20:37)
[2022-10-31] MEDS ORDERED: LORazepam 0.5 MG TAB PO PRN (20:37)
[2022-10-31] MEDS ORDERED: PROMETHAZINE HCL 12.5 MG in SODIUM CHLORIDE 0.9% 50 ML IV PRN (20:37)
--- NOTE | 2022-10-31 22:04 | XRay Report ---
SINGLE VIEW CHEST CLINICAL HISTORY: Renal failure FINDINGS: An AP, portable, upright chest radiograph is compared to study dated 08/12/2022. The patient is status post midline sternotomy. The heart is enlarged. The pulmonary vasculature is noncongested. Chronic interstitial thickening is similar to previous. There is mild bibasilar scarring/atelectasis . The lungs and pleural spaces are otherwise clear. No pneumothorax is seen. The skeletal structures are osteopenic. The bony thorax is grossly intact. Cholecystectomy clips are noted in the right upper quadrant. IMPRESSION: Mild cardiomegaly with no active disease in the chest. ACT 112: Negative or not required by law. Electronically signed by: Mario Loving M.D. 10/31/2022 10:02 PM
[2022-10-31] MEDS ORDERED: CARBOHYDRATES FOR HYPOGLYCEMIA PO PRN (23:26)
[2022-10-31] MEDS ORDERED: GLUCOSE 40% GEL 15 GM TUBE PO PRN (23:26)
[2022-10-31] MEDS ORDERED: GLUCAGON FOR INJ 1 MG VIAL SQ PRN (23:26)
[2022-10-31] MEDS ORDERED: ACETAMINOPHEN 325 MG TAB PO PRN (23:26)
[2022-10-31] MEDS ORDERED: GLUCOSE 10 TAB/TUBE PO PRN (23:26)
[2022-10-31] MEDS ORDERED: DEXTROSE 50% 50 ML SYRINGE IV PRN (23:26)
[2022-10-31] MEDS: oxyCODONE HCL IR 5 MG TAB (IMMEDIATE RELEASE) PO PRN (23:57)
[2022-10-31] MEDS: INSULIN ASPART PER UNIT CHARGE SC SCH (23:58)
[2022-11-01] MEDS ORDERED: MAGNESIUM SULFATE / D5W 1 GM/100 ML BAG IV ONE (03:11)
[2022-11-01] MEDS: INSULIN ASPART PER UNIT CHARGE SC SCH ×4 (05:51→21:09)
[2022-11-01] MEDS: oxyCODONE HCL IR 5 MG TAB (IMMEDIATE RELEASE) PO PRN ×3 (05:54→22:41)
[2022-11-01 07:39] LABS: Basophils # (auto) 0.03 K/uL (0-0.2); Basophils % (auto) 0.5 %; Eosinophils # (auto) 0.28 K/uL (0-0.50); Eosinophils % (auto) 4.4 %; Hematocrit (blood only) 39.2 % (42.0-52.0); Hemoglobin 13.2 g/dl (14.0-18.0); Immature Granulocytes # (auto) 0.04 K/uL (0.01-0.20); Immature Granulocytes % (auto) 0.6 %; Lymphocytes # (auto) 0.36 K/uL (1.2-3.4); Lymphocytes % (auto) 5.6 %; Mean Corpuscular Hemoglobin 29.8 pg (25.0-34.0); Mean Corpuscular Hgb Conc 33.7 g/dL (32.0-36.0); Mean Corpuscular Volume 88.5 fL (80.0-100.0); Mean Platelet Volume 9.7 fL (9.4-12.4); Monocytes # (auto) 0.94 K/uL (0.11-0.59); Monocytes % (auto) 14.6 %; Neutrophils # (auto) 4.78 K/uL (1.40-6.50); Neutrophils % (auto) 74.3 %; Platelet Count 214 K/uL (130-400); RDW Coefficient of Variation 13.1 % (11.5-14.5); RDW Standard Deviation 42.4 fL (36.4-46.3); Red Blood Count 4.43 M/uL (4.70-6.10); White Blood Count 6.43 K/ul (4.8-10.8)
[2022-11-01 07:52] LABS: BUN Creatinine Ratio 8.5 (10-20); Calcium 8.3 mg/dl (8.6-10.3); Creatinine Clr Calc Pharmacy 37.8 ml/min; Est GFR (Non-African American) 31.9 ml/min; Magnesium 1.7 mg/dl (1.7-2.4); Potassium 4.2 mmol/L (3.5-5.1)
[2022-11-01] MEDS ORDERED: FLUTICASONE PROPIONATE NA SPR 16 GM BTL PRN (08:36)
[2022-11-01] MEDS ORDERED: MIDAZOLAM HCL 1 MG/ML 2ML VIAL ONE (08:40)
[2022-11-01] MEDS ORDERED: PROPOFOL IV EMULSION 10 MG/ML 20 ML VIAL IV ONE ×4 (08:40→08:42)
[2022-11-01] MEDS ORDERED: fentaNYL citrate PF 100 MCG/2 ML VIAL ONE (08:40)
[2022-11-01] MEDS ORDERED: KETAMINE 50 MG/5 ML SYRINGE ONE (08:40)
--- NOTE | 2022-11-01 08:43 | Urology Consultation ---
Date of Consultation November 01, 2022 Assessment & Plan (1) Left ureteral calculus: (2) Acute kidney injury: 66-year-old male admitted for left flank pain secondary to an obstructing 9 mm left distal ureteral calculus, FEI. Patient currently afebrile and hemodynamically stable. Febrile yesterday evening (Tmax 38.3). Labs today - creatinine 2.11, no leukocytosis. CT imaging independently reviewed and notable for a 9 mm obstructing left distal ureteral calculus with hydronephrosis. UA on arrival negative for bacteria and nitrates. No urine or blood cultures pending at this time. Discussed recommendation for left ureteral stent placement today given fever and FEI in the context of his obstructing left ureteral calculus. Ureteral stents were discussed in detail. Discussed need to treat stone at a later date. He is agreeable to proceed. 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 Discussed case with attending hospitalist - patient is acceptable risk to proceed with procedure today and will also be reviewed with his flipping machine operator. - Will plan to proceed with OR for cystoscopy, Left retrograde pyelogram and Left stent placement. - Risks and benefits to be reviewed with patient by Dr. Matthews. OR notified. - Will cover with IV Ceftriaxone preoperatively. - Keep NPO for procedure. Attending note: Patient independently assessed, examined, and interviewed. Agree with patient assessment and examination as above and all aspects of the note. Patient's labs were all reviewed. Pertinent values include a creatinine of 2.11. White count is 6.43. Hemoglobin was 13.2. Imaging was reviewed interpreted by myself. Patient has obstructing stone on the left causing hydronephrosis. UA had been negative. Current cultures are pending. Patient developed fever overnight. Has had increasing issues. Has been dealing with a Tmax of 38.3. Temp currently is 37. Blood pressures are stable with no signs of hypotension. Patient has been having ill feelings as well as pain and significant discomfort. Extensively reviewed options. Discussed concerns related to infected stone and development of pyelonephritis and possibly sepsis. Extensively reviewed risk and benefits. Discussed concerns and issues. Discussed options moving forward. Discussed management down the road for stone treatment. Discussed other alternatives and options. Patient's complicated medical and surgical history was reviewed and summarized above all imaging was reviewed int erpreted by myself and current labs were reviewed with pertinent values in the HPI of plan section. We will plan to set up for urgent stent placement on the left. Risks and benefits discussed at length for procedure. These include bleeding, infection, injury to surrounding tissues or organs, and risks associated with anesthesia. Patient states understanding and agrees to proceed. Will sign consent and proceed. Plan for cystoscopy and left stent. History of Present Illness Attending Physician: Alexander Peres MD History of Present Illness This is a 66-year-old male with past medical history of CAD, s/p CABG x2, diabetes, hyperlipidemia, and nephrolithiasis who presented to the emergency department on 10/31/2022 for evaluation of left-sided flank pain beginning earlier that day. On arrival he was afebrile and hemodynamically stable. Lab work independently reviewed. WBC 7.17, hemoglobin 15.3, creatinine 2.15. Urinalysis notable for trace protein, 3+ blood, >30 RBC; negative for bacteria and nitrates. CT imaging reviewed and notable for a 9 mm obstructing calculus versus 2 adjacent calculi located in the distal left ureter causing mild to moderate left hydroureteronephrosis, numerous additional bilateral nonobstructing renal calculi. He was treated with morphine and ondansetron in the ED. He was admitted to the hospital medicine service. Urology is consulted for evaluation of obstructive uropathy. Chart review: Afebrile this morning. Febrile yesterday evening (Tmax 38.3). Today's labscreatinine 2.11, WBC 6.43, Hgb 13.2. Patient seen and examined at bedside this morning. He is awake, alert and resting in bed. He reports intermittent left flank discomfort, relieved with analgesia. Voiding spontaneously, noted some hematuria this morning, no dysuria. Reports fever last night. Denies nausea, vomiting, fever or chills at present. No chest pain or shortness of breath. He is NPO. He reports history of prior stone episode with spontaneous passage. No prior surgical intervention for stones. Allergies Allergy/AdvReac Type Severity Reaction Status Date / Time Quinolones Allergy Unknown Unknown Verified 10/31/22 21:02 ofloxacin [From Floxin] AdvReac Severe Hallucinati Verified 10/31/22 21:02 ng empagliflozin AdvReac UTIs Verified 10/31/22 21:02 [From Jardiance] Home Medications Medication Instructions Recorded Confirmed Type alprazolam 0.5 mg tablet (Xanax) 0.5 mg PO HS 01/29/18 10/31/22 History nitroglycerin 0.4 mg sublingual 0.4 mg sublingual DIRECTED PRN 01/29/18 10/31/22 History tablet (Nitrostat) Chest Pain icosapent ethyl 1 gram capsule 2 g PO AMHS 12/03/18 10/31/22 History (Vascepa) atorvastatin 80 mg tablet (Lipitor) 80 mg PO HS 09/13/19 10/31/22 History cyanocobalamin (vitamin B-12) 100 200 mcg PO QAM 09/13/19 10/31/22 History mcg tablet ascorbic acid (vitamin C) 500 mg 500 mg PO DAILY 04/24/20 10/31/22 History tablet (Vitamin C) ferrous sulfate 325 mg (65 mg 325 mg PO 3XWK 04/24/20 10/31/22 History iron) tablet levothyroxine 137 mcg tablet 137 mcg PO QAM 04/24/20 10/31/22 History (Synthroid) metformin 500 mg tablet,extended 500 mg PO AMHS 04/24/20 10/31/22 History release 24 hr ondansetron 4 mg disintegrating 4 mg PO Q8H PRN Nausea 04/24/20 10/31/22 History tablet ezetimibe 10 mg tablet 10 mg PO DAILY 12/31/20 10/31/22 History apixaban 5 mg tablet (Eliquis) 5 mg PO BID 04/19/21 10/31/22 History clopidogrel 75 mg tablet 75 mg PO DAILY 04/19/21 10/31/22 History duloxetine 60 mg capsule,delayed 60 mg PO QAM 07/31/22 10/31/22 History release finasteride 5 mg tablet 5 mg PO QAM 07/31/22 10/31/22 History gabapentin 300 mg capsule 300 mg PO HS 07/31/22 10/31/22 History meclizine 25 mg tablet 12.5 - 25 mg PO Q6 PRN Dizziness 07/31/22 10/31/22 History metoprolol succinate 50 mg 50 mg PO AMHS 07/31/22 10/31/22 History tablet,extended release 24 hr pantoprazole 40 mg tablet,delayed 40 mg PO AMHS 07/31/22 10/31/22 History release tramadol 50 mg tablet 50 mg PO BID PRN mod-severe pain 07/31/22 10/31/22 History tamsulosin 0.4 mg capsule 0.4 mg PO QAM 08/05/22 10/31/22 History prednisone 5 mg tablet 5 mg PO QAM #30 tabs 08/10/22 10/31/22 Rx benzonatate 100 mg capsule 200 mg PO TID PRN Cough 10/31/22 10/31/22 History evolocumab 140 mg/mL subcutaneous 140 mg subcut .[id number] 10/31/22 10/31/22 History pen injector (Aimee Stephens) fluticasone propionate 50 2 spray intranasal DAILY PRN 10/31/22 10/31/22 History mcg/actuation nasal .allergies spray,suspension glipizide 2.5 mg tablet, extended 2.5 mg PO QAM 10/31/22 10/31/22 History release 24 hr guaifenesin 600 mg tablet, 600 mg PO Q12 PRN Congestion 10/31/22 10/31/22 History extended release 12 hr (Mucinex) promethazine 25 mg rectal 25 mg [place] Q6 PRN Nausea 10/31/22 10/31/22 History suppository Patient History Medical History CAD (coronary artery disease) s/p PCI to LAD due to atretic WHITAKER graft CAD (coronary artery disease) Diabetes Diabetes HTN (hypertension) Hyperlipidemia Hypothyroidism associated with surgical procedure Kidney disease Obesity (BMI 30.0-34.9) Thyroid cancer thyroidectomy in 2001 Thyroidectomy (02/21/13) Surgical History Aortocoronary bypass status 03/2014 : [place] [facility] [place] of cardiac cath History of thyroidectomy Stented coronary artery Occluded Staphenous Vein Graft. NIMESH x's 4 Social History Smoking Status: Never smoker Second Hand Exposure: Yes ( smoker); Do You Dip or Chew Tobacco: No; Hx Alcohol Use: No Hx Substance Use: No Preferred Language: Swedish Communication Ability: Effective Project Asst Required: No Beliefs That Will Affect Care: None marital status: Current Living Situation: Spouse and Family Current Living Situation Comment: House current occupation: Retired Other Information That Helps Us Care for You: No Feels Safe at Home: Yes Safety Concerns: Feels Safe At This Time Assistive Devices: Cane, Contacts and Oxygen - at Night Review of Systems Review of Systems: All systems reviewed & are unremarkable except as noted in HPI & below Physical Exam Physical Exam: General: well-appearing, no acute distress HEENT: Normocephalic, mucous membranes moist Pulmonary: Nonlabored respirations Abdomen: Nondistended, soft, nontender Extremities: Moves all 4 spontaneously Neuro: No gross deficits Psych: alert and oriented, normal mood Skin: Warm, dry, no rashes noted : No CVA tenderness Results & Data Vital Signs (Past 12 Hours) Vital Signs Temp Pulse Pulse Resp BP BP Pulse Ox 11/01/22 07:55 37.3 C 89 20 106/66 91 11/01/22 07:08 79 11/01/22 04:28 37.1 C 80 20 116/71 95 10/31/22 23:18 89 10/31/22 23:15 37.1 C 94 H 18 124/70 93 10/31/22 23:05 38.3 C H 103 H 19 116/76 95 10/31/22 21:51 38.3 C H 102 H 12 133/80 96 10/31/22 21:37 87 L O2 Del Method O2 Flow Rate 11/01/22 07:55 Room Air 11/01/22 07:08 11/01/22 04:28 Nasal Cannula 10/31/22 23:18 10/31/22 23:15 Room Air 10/31/22 23:05 Nasal Cannula 2 10/31/22 21:51 Nasal Cannula 2 10/31/22 21:37 Room Air 0 PG Care Time/CCT Total # of Minutes Spent Total Time Spent with Patient: Total time spent is greater than 50% in coordination of care (as documented) at patient's floor/unit and/or counseling patient: Coding Level of Care Code 29455 INT INP/OBS CARE 2MIN Diagnoses Left ureteral calculus N20.1 Acute kidney injury N17.9 Time Spent (min) 60
[2022-11-01] MEDS ORDERED: cefTRIAXone SODIUM 2,000 MG in DEXTROSE 5% 50 ML IV ONE (08:51)
[2022-11-01] MEDS ORDERED: ONDANSETRON INJ 2 MG/ML 2 ML VIAL IV PRN (09:20)
[2022-11-01] MEDS ORDERED: fentaNYL citrate PF 100 MCG/2 ML VIAL IV PRN (09:20)
[2022-11-01] MEDS ORDERED: ATROPINE SULFATE 0.1 MG/ML 10ML SYR IV PRN (09:20)
[2022-11-01] MEDS ORDERED: ePHEDrine sulfate 50 MG/ML AMP IV PRN (09:20)
--- NOTE | 2022-11-01 09:20 | Anesthesiology Consultation ---
Date of Service November 01, 2022 Assessment & Plan Chart Review Chart Review: Acceptable Risk for Surgery and Patient NOT seen in Pre Admission Testing Consults Requested none ASA ASA3 Proposed Anesthesia Anesthesia Type: MAC Risk / Benefits Reviewed With: PT / POA / Parent / Guardian, Accepts Plan and Informed Consent Obtained History Surgery Operation Date: 11/01/22 07:40 Proposed Procedures p Cystoscopy with Left Stent Placement - Naren Matthews, DO Height/Weight Height: 5 ft 9 in Weight: 85.139 kg Allergies Allergy/AdvReac Type Severity Reaction Status Date / Time Quinolones Allergy Unknown Unknown Verified 10/31/22 21:02 ofloxacin [From Floxin] AdvReac Severe Hallucinati Verified 10/31/22 21:02 ng empagliflozin AdvReac UTIs Verified 10/31/22 21:02 [From Jardiance] Medications Home Medications Medication Instructions Recorded Confirmed Last Taken alprazolam 0.5 mg tablet (Xanax) 0.5 mg PO HS 01/29/18 10/31/22 Unknown nitroglycerin 0.4 mg sublingual 0.4 mg sublingual DIRECTED PRN 01/29/18 10/31/22 04/19/21 tablet (Nitrostat) Chest Pain 2 DOSES icosapent ethyl 1 gram capsule 2 g PO AMHS 12/03/18 10/31/22 04/19/21 (Vascepa) atorvastatin 80 mg tablet (Lipitor) 80 mg PO HS 09/13/19 10/31/22 04/18/21 cyanocobalamin (vitamin B-12) 100 200 mcg PO QAM 09/13/19 10/31/22 04/19/21 mcg tablet ascorbic acid (vitamin C) 500 mg 500 mg PO DAILY 04/24/20 10/31/22 04/17/21 tablet (Vitamin C) ferrous sulfate 325 mg (65 mg 325 mg PO 3XWK 04/24/20 10/31/22 04/17/21 iron) tablet levothyroxine 137 mcg tablet 137 mcg PO QAM 04/24/20 10/31/22 04/19/21 (Synthroid) metformin 500 mg tablet,extended 500 mg PO AMHS 04/24/20 10/31/22 04/19/21 release 24 hr ondansetron 4 mg disintegrating 4 mg PO Q8H PRN Nausea 04/24/20 10/31/22 Unknown tablet ezetimibe 10 mg tablet 10 mg PO DAILY 12/31/20 10/31/22 04/19/21 apixaban 5 mg tablet (Eliquis) 5 mg PO BID 04/19/21 10/31/22 10/30/22 22:00 clopidogrel 75 mg tablet 75 mg PO DAILY 04/19/21 10/31/22 04/19/21 duloxetine 60 mg capsule,delayed 60 mg PO QAM 07/31/22 10/31/22 Unknown release finasteride 5 mg tablet 5 mg PO QAM 07/31/22 10/31/22 Unknown gabapentin 300 mg capsule 300 mg PO HS 07/31/22 10/31/22 Unknown meclizine 25 mg tablet 12.5 - 25 mg PO Q6 PRN Dizziness 07/31/22 10/31/22 Unknown metoprolol succinate 50 mg 50 mg PO AMHS 07/31/22 10/31/22 Unknown tablet,extended release 24 hr pantoprazole 40 mg tablet,delayed 40 mg PO AMHS 07/31/22 10/31/22 Unknown release tramadol 50 mg tablet 50 mg PO BID PRN mod-severe pain 07/31/22 10/31/22 Unknown tamsulosin 0.4 mg capsule 0.4 mg PO QAM 08/05/22 10/31/22 Unknown prednisone 5 mg tablet 5 mg PO QAM #30 tabs 08/10/22 10/31/22 Unknown benzonatate 100 mg capsule 200 mg PO TID PRN Cough 10/31/22 10/31/22 Unknown evolocumab 140 mg/mL subcutaneous 140 mg subcut .[id number] 10/31/22 10/31/22 Unknown pen injector (Aimee Stephens) fluticasone propionate 50 2 spray intranasal DAILY PRN 10/31/22 10/31/22 Unknown mcg/actuation nasal .allergies spray,suspension glipizide 2.5 mg tablet, extended 2.5 mg PO QAM 10/31/22 10/31/22 Unknown release 24 hr guaifenesin 600 mg tablet, 600 mg PO Q12 PRN Congestion 10/31/22 10/31/22 Unknown extended release 12 hr (Mucinex) promethazine 25 mg rectal 25 mg [place] Q6 PRN Nausea 10/31/22 10/31/22 Unknown suppository Active Medications Generic Name Dose Route Start Last Admin Trade Name Peterq PRN Reason Stop Dose Admin Insulin Aspart 0 units 10/31/22 23:30 11/01/22 05:51 Insulin Aspart Per Unit Charge SC 11/30/22 23:29 Not Given Q6 ANA Oxycodone HCl 5 - 10 mg 10/31/22 20:37 11/01/22 05:54 Oxycodone Hcl Ir 5 Mg Tab (Immediate Release) PO 11/14/22 20:36 10 mg QID PRN Administration Pain NPO Date Last Intake of Fluids: 10/31/22 Time Last Intake of Fluids: 23:00 Date Last Intake of Solids: 10/31/22 Time Last Intake of Solids: 23:00 Past Medical History Medical History CAD (coronary artery disease) s/p PCI to LAD due to atretic WHITAKER graft CAD (coronary artery disease) Diabetes Diabetes HTN (hypertension) Hyperlipidemia Hypothyroidism associated with surgical procedure Kidney disease Obesity (BMI 30.0-34.9) Thyroid cancer thyroidectomy in 2001 Thyroidectomy (02/21/13) Exercise / Class Metabolic Activity II 4-5 Yardwork/Stairs/Walk up hill Past Surgical History Surgical History Aortocoronary bypass status 03/2014 : 2x CABG at [facility] [place] History of cardiac cath History of thyroidectomy Stented coronary artery Occluded Staphenous Vein Graft. NIMESH x's 4 Past Anesthesia History No Hx of Anesthesia Complications and No Family Hx of Anesthesia Complications History of PONV No Hx of PONV and No Hx of Motion Sickness Social History Smoking Status: Never smoker Do You Dip or Chew Tobacco: No Hx Alcohol Use: No alcohol intake frequency: holidays/special occasions only Hx Substance Use: No substance use type: does not use Physical Exam Vital Signs Last Vital Signs Temp 37 C 11/01/22 08:58 Pulse 84 11/01/22 08:58 Resp 18 11/01/22 08:58 BP 121/74 11/01/22 08:58 Pulse Ox 93 11/01/22 08:58 O2 Del Method Room Air 11/01/22 08:58 O2 Flow Rate 2 10/31/22 23:05 ENMT Mouth: no dentition abnormality Thyromental Distance: > or= 3.5 Finger Breadths Mallampati Class: II Neck normal visual inspection Respiratory normal respiratory effort Auscultation: lungs clear to auscultation bilaterally Cardiovascular Rate/Rhythm: regular rate and regular rhythm Psychiatric Orientation: alert Testing Laboratory Results 11/01/22 06:46 11/01/22 06:46 PT 11.3 Seconds (9.0-12.0) 10/31/22 18:17 INR 1.0 (0.9-1.1) 10/31/22 18:17 APTT 30.6 Seconds (21.0-31.0) 10/31/22 18:17 Urine Color Yellow 10/31/22 19:48 Urine Appearance Clear (Clear) 10/31/22 19:48 Urine pH 5.5 (4.5-7.5) 10/31/22 19:48 Ur Specific Conrad 1.017 (1.000-1.030) 10/31/22 19:48 Urine Protein Trace (Negative) H 10/31/22 19:48 Urine Glucose (UA) Negative (Negative) 10/31/22 19:48 Urine Ketones Negative (Negative) 10/31/22 19:48 Urine Nitrite Negative (Negative) 10/31/22 19:48 Ur Leukocyte Esterase Negative (Negative) 10/31/22 19:48 Urine WBC (Auto) 1-5 /hpf (0-5) 10/31/22 19:48 Urine RBC (Auto) >30 /hpf (0-4) H 10/31/22 19:48 U Hyaline Cast (Auto) 1-5 /lpf (0-5) 10/31/22 19:48 U Epithel Cells (Auto) 0-5 /lpf (0-5) 10/31/22 19:48 Urine Bacteria (Auto) Negative (Negative) 10/31/22 19:48 11/01/22 11/01/22 10/31/22 09:11 05:45 23:48 POC Glucose 126 H 118 H 124 H
[2022-11-01] MEDS ORDERED: ONDANSETRON INJ 2 MG/ML 2 ML VIAL ONE (09:33)
[2022-11-01] MEDS ORDERED: GLYCOPYRROLATE 0.2 MG/ML VIAL ONE (09:33)
[2022-11-01] MEDS ORDERED: DIATRIZOATE MEGLUMINE 30% 100ML VIAL INSTIL ONE (09:46)
--- NOTE | 2022-11-01 09:56 | Operative Report ---
[facility] Post Operative Report Pre & Post Diagnosis Obstructing Left Stone. Same Operation Date: 11/01/22 07:40 <No data on this case meets the specified criteria> I identified the patient and participated in the time-out.: Yes Procedure Cystoscopy with left aspiration, retrograde pyelogram, stent placement Operation Date: 11/01/22 07:40 <No data on this case meets the specified criteria> Surgeon Naren Matthews, II, DO Cable Spooler None Estimated Blood Loss 1 Findings Consistent with Post-Op Diagnosis Stent placed in good position. Specimens Urine Left Kidney Drains 6 Fr Multilength Anesthesia Type MAC Complications none Disposition Disposition: Recovery Room Indications Patient with obstruction. Risks and benefits discussed at length. Description of Procedure Patient was consented and brought back to the operating room. Patient was placed under anesthesia in the supine position and moved to the dorsal lithotomy position. Patient was prepped and draped in the regular sterile fashion. A time out was completed. A 30degree Cystoscope was placed into the bladder and the entire bladder was examined. The UO's were identified. The UO was cannulized with a catheter and advanced past the stones after some manipulation. A urine sample was aspirated from the left renal pelvis and sent for analyis. A retrograde pyelogram was completed. A wire was then placed. With the wire in place, a 6 Fr Double J stent was placed. It was confirmed with fluoroscopy. With the stent in place, the bladder was emptied. The scope was removed. The patient was cleaned, aroused from anesthesia, and transferred to the pacu in stable condition having tolerated the procedure well with no complications. I was present and participated in all aspects of the procedure. The patient will be monitored in the PACU until transferred. Plan for stone treatment in next 1-2 weeks after treatment with antibiotics. I attest to the content of the Intraoperative Record and any orders documented therein. Any exceptions are noted below.
[2022-11-01] MEDS ORDERED: FERROUS SULFATE 325 MG TAB PO SCH (10:00)
[2022-11-01] MEDS ORDERED: ASCORBIC ACID 500 MG TAB PO SCH (10:00)
--- NOTE | 2022-11-01 10:26 | Anesthesiology Progress Note ---
Date of Service November 01, 2022 Anesthesia Post Procedure Vital Signs Vital Signs: Temp Pulse Pulse Pulse Pulse Resp BP 11/01/22 10:15 37.1 C 96 H 16 11/01/22 10:05 98 H 18 11/01/22 09:59 36.2 C L 90 14 11/01/22 08:58 37 C 84 18 11/01/22 07:55 37.3 C 89 20 11/01/22 07:08 79 11/01/22 04:28 37.1 C 80 20 10/31/22 23:18 89 10/31/22 23:15 37.1 C 94 H 18 10/31/22 23:05 38.3 C H 103 H 19 116/76 10/31/22 21:51 38.3 C H 102 H 12 10/31/22 21:37 10/31/22 20:16 105 H 10/31/22 18:20 98 H 10/31/22 18:16 99 H 28 H 10/31/22 18:04 36.0 C L 102 H 20 142/89 H BP BP Pulse Ox O2 Del Method O2 Flow Rate 11/01/22 10:15 127/86 93 Room Air 11/01/22 10:05 121/73 97 Room Air 11/01/22 09:59 108/67 92 Oxymask 6 11/01/22 08:58 121/74 93 Room Air 11/01/22 07:55 106/66 91 Room Air 11/01/22 07:08 11/01/22 04:28 116/71 95 Nasal Cannula 10/31/22 23:18 10/31/22 23:15 124/70 93 Room Air 10/31/22 23:05 95 Nasal Cannula 2 10/31/22 21:51 133/80 96 Nasal Cannula 2 10/31/22 21:37 87 L Room Air 0 10/31/22 20:16 95 Room Air 10/31/22 18:20 10/31/22 18:16 129/89 98 Room Air 10/31/22 18:04 99 Room Air Pain Intensity Left Flank: Pain Intensity: 0 Right Leg: Pain Intensity: 8 Transfer of Care Handoff Completed per policy Notes Mental Status: alert / awake / arousable Patient Amnestic to Procedure: Yes Nausea / Vomiting: adequately controlled Pain: adequately controlled Airway Patency, RR, SpO2: stable & adequate BP & HR: stable & adequate Hydration State: stable & adequate Anesthetic Complications: no major complications apparent
--- NOTE | 2022-11-01 10:27 | Fluoroscopy Report ---
FL retrograde includes kub CLINICAL HISTORY: LEFT RETROGRADE. Left ureteral stent placement. COMPARISON STUDY: Abdomen and pelvis CT 10/31/2022. FLUOROSCOPY TIME: 51 seconds FLUOROSCOPY IMAGES: 2 Ka,r: 10.3 mGy FINDINGS: Retrograde opacification of the left renal collecting system with placement of a left urete ral stent. The ureteral stent appears in good position. IMPRESSION: Fluoroscopic assistance as above. Electronically signed by: Elvin Scherer M.D. 11/01/2022 10:26 AM
[2022-11-01] MEDS: CLOPIDOGREL BISULFATE 75 MG TAB PO SCH (10:36)
[2022-11-01] MEDS: EZETIMIBE 10 MG TABLET PO SCH (10:36)
[2022-11-01] MEDS: PANTOprazole 40 MG TAB PO SCH ×2 (10:36→21:10)
[2022-11-01] MEDS: FINASTERIDE 5 MG TAB PO SCH (10:36)
[2022-11-01] MEDS: predniSONE 5 MG TAB PO SCH (10:36)
[2022-11-01] MEDS: DULoxetine HCL 60 MG CAP PO SCH (10:36)
[2022-11-01] MEDS: METOPROLOL SUCC 50MG EXT REL TAB PO SCH ×4 (10:37→21:10)
[2022-11-01] MEDS: TAMSULOSIN HCL 0.4 MG CAP PO SCH (10:37)
[2022-11-01] MEDS: LEVOTHYROXINE SODIUM 137 MCG TABLET PO SCH (10:37)
[2022-11-01] MEDS: LACTATED RINGER'S 1,000 ML IV SCH ×2 (10:38→17:10)
[2022-11-01] MEDS ORDERED: Nursing to Pharmacy Communication SCH (11:30)
--- NOTE | 2022-11-01 16:46 | Hospitalist Progress Note ---
Date of Service November 01, 2022 Assessment & Plan (1) ARF (acute renal failure): Plan 66-year-old male with PMH of CAD status post CABG/stent, PAF on Eliquis, valvular heart disease, HTN, HLD, pulmonary sarcoidosis on chronic steroid treatment, thyroid cancer status post surgery/radioablation, DM2 on oral meds, postsurgical hypothyroidism, GERD, urolithiasis presented to the ED 10/31 with complaint of achy left flank pain reminiscent of kidney stone. Denies any fever or chills or pain or burning while passing urine. He is being managed for the following: Acute renal failure Obstructive uropathy: Heart rate and temperature elevated at presentation. UA nl. Received rocpehin preoperatively, continue to monitor closely. No CVA angle tenderness. No pain/burn/freq of urination per patient. follow urine culture. Admitting BUN and creatinine 22 and 2.15, likely postobstructive renal failure. Admitting CTAP with 9 mm obstructive calculus versus 2 adjacent calculi in the distal ureter x left associated with mild to moderate left hydroureteronephrosis. Numerous additional bilateral nonobstructive renal calculi. Admitting CXR with no acute finding, admitting EKG with sinus tachycardia. Patient with no chest pain. Discussed with urology, for stent placement today. Continue with IV fluids, labs in a.m., expect kidney function improvement with stent placement and continuing IV fluid. Resume Eliquis once cleared per urology. Other chronic medical conditions: Continue with/resume home meds as and when able. hx CAD status post CABG/stent PAF on Eliquis, patient NSR valvular heart disease (mild MR/AR) hypertension, BP stable hyperlipidemia on statin Rx thyroid cancer status post surgery/radioablation DM2 on oral medications, well-controlled as of recent hemoglobin A1c of 6.9 last July 2022 postsurgical hypothyroidism, can repeat thyroid function once out of acute illness. As an outpatient. history sarcoidosis on chronic steroid Rx for GERD, stable on regimen DVT prophylaxis: SCDs until Eliquis can be resumed. Full code Patient's Ms. Libertad Hogan, contact #[phone]. Admission and Anticipated Discharge Date Admission Date: October 31, 2022 Subjective Patient seen and examined at bedside as a follow-up of acute renal failure secondary to obstructive uropathy. Patient was sitting up in bed, on room air, NAD, reports no new acute event overnight, reports left flank pain on and off/colicky in nature/with no much radiation. Patient is n.p.o. for stent today, can resume diet after the stent placement. Patient denies any headache or dizziness or chest pain or palpitation. Patient reports no acute illness in the last 1 week/no lightheadedness/dizziness/chest pain/palpitation/shortness of breath with climbing 2 flight of stairs at home, patient does have chronic sciatica pain due to which he uses cane intermittently. Physical Exam Physical Exam: GENERAL: Alert and oriented x3. NAD, on RA. HEENT: No pallor, no icterus. Pupils equal, round and reactive to light. Oral mucosa moist. NECK: No JVD, no neck masses. HEART: S1 and S2 heard. Regular rate and rhythm. No murmur, no gallop. RESPIRATORY SYSTEM: Normal AP diameter. No accessory muscle use. No wheezing, no crackles. ABDOMEN: Soft, bowel sounds present, nontender, no distention. CENTRAL NERVOUS SYSTEM: No facial droop. Speech is clear. Obeys simple commands. Moves extremities. EXTREMITIES: No edema, no erythema seen. No CVA angle tenderness. Results & Data Results & Data Vital Signs (Past 12 Hours) Vital Signs Temp Pulse Pulse Pulse Pulse Resp BP 11/01/22 15:53 11/01/22 15:25 36.7 C 77 20 11/01/22 13:26 11/01/22 10:38 36.8 C 89 20 11/01/22 10:15 37.1 C 96 H 16 11/01/22 10:05 98 H 18 11/01/22 09:59 36.2 C L 90 14 11/01/22 08:58 37 C 84 18 11/01/22 07:55 37.3 C 89 20 106/66 11/01/22 07:08 79 BP Pulse Ox O2 Del Method O2 Flow Rate 11/01/22 15:53 94 Nasal Cannula 3 11/01/22 15:25 107/66 93 Nasal Cannula 2 11/01/22 13:26 95 Nasal Cannula 2 11/01/22 10:38 120/76 93 Room Air 11/01/22 10:15 127/86 93 Room Air 11/01/22 10:05 121/73 97 Room Air 11/01/22 09:59 108/67 92 Oxymask 6 11/01/22 08:58 121/74 93 Room Air 11/01/22 07:55 91 Room Air 11/01/22 07:08
[2022-11-01] MEDS ORDERED: ALPRAZolam 0.5 MG TABLET PO SCH (21:00)
[2022-11-01] MEDS ORDERED: ATORVASTATIN 40 MG TAB PO SCH (21:00)
[2022-11-01] MEDS ORDERED: GABAPENTIN 100 MG CAP PO SCH (21:00)
[2022-11-01] MEDS: APIXABAN 2.5 MG TAB PO SCH (22:10)
[2022-11-02] MEDS: LACTATED RINGER'S 1,000 ML IV SCH (03:23)
[2022-11-02] MEDS: LEVOTHYROXINE SODIUM 137 MCG TABLET PO SCH (05:36)
[2022-11-02 06:39] LABS: Hematocrit (blood only) 37.4 % (42.0-52.0); Hemoglobin 12.6 g/dl (14.0-18.0); Mean Corpuscular Hemoglobin 29.3 pg (25.0-34.0); Mean Corpuscular Hgb Conc 33.7 g/dL (32.0-36.0); Mean Platelet Volume 9.7 fL (9.4-12.4); Platelet Count 195 K/uL (130-400); RDW Coefficient of Variation 12.8 % (11.5-14.5); RDW Standard Deviation 40.8 fL (36.4-46.3); White Blood Count 4.19 K/ul (4.8-10.8)
[2022-11-02 06:54] LABS: BUN Creatinine Ratio 10.8 (10-20); Calcium 7.7 mg/dl (8.6-10.3); Creatinine Clr Calc Pharmacy 45.7 ml/min; Est GFR (Non-African American) 39.7 ml/min; Magnesium 1.7 mg/dl (1.7-2.4); Phosphorus 3.9 mg/dl (2.5-4.9); Potassium 4.3 mmol/L (3.5-5.1)
[2022-11-02] MEDS: DULoxetine HCL 60 MG CAP PO SCH (08:08)
[2022-11-02] MEDS: TAMSULOSIN HCL 0.4 MG CAP PO SCH (08:08)
[2022-11-02] MEDS: CLOPIDOGREL BISULFATE 75 MG TAB PO SCH (08:08)
[2022-11-02] MEDS: METOPROLOL SUCC 50MG EXT REL TAB PO SCH (08:09)
[2022-11-02] MEDS: EZETIMIBE 10 MG TABLET PO SCH (08:10)
[2022-11-02] MEDS: PANTOprazole 40 MG TAB PO SCH (08:10)
[2022-11-02] MEDS: APIXABAN 2.5 MG TAB PO SCH (08:11)
[2022-11-02] MEDS: FINASTERIDE 5 MG TAB PO SCH (08:11)
[2022-11-02] MEDS: predniSONE 5 MG TAB PO SCH (08:11)
[2022-11-02] MEDS: INSULIN ASPART PER UNIT CHARGE SC SCH ×2 (08:19→12:17)
--- NOTE | 2022-11-02 09:33 | Urology Progress Note ---
Date of Service November 02, 2022 Assessment & Plan (1) Left ureteral calculus: Plan: Pain from his left ureteral stone is well controlled with ureteral stent in place. He is tolerating the stent well. Kidney function is improving and I have low suspicion for infection based on lab work and his clinical condition. He will require future intervention to remove the stone, however this can be coordinated as an outpatient. Urology will arrange follow-up to discuss d efinitive stone management. (2) ARF (acute renal failure): Plan: Renal function is improving with ureteral stent in place. Plan Okay for discharge home from urology perspective We will arrange outpatient follow-up to coordinate definitive stone management. Admission and Anticipated Discharge Date Admission Date: October 31, 2022 Subjective Feeling well s/p stent placement on 11/01/2022 Denies any significant flank pain, more bothered by his sciatica Denies fevers or chills. Urine culture pending No leukocytosis (WBC 4.19), creatinine has improved from 2.15 on arrival to 1.76 Results & Data Vital Signs (Past 12 Hours) Vital Signs Temp Pulse Pulse Resp BP BP Pulse Ox 11/02/22 08:05 66 102/66 11/02/22 08:24 37.0 C 68 18 96/58 L 95 11/02/22 07:24 58 L 11/02/22 04:00 36.7 C 60 18 111/69 97 11/01/22 22:00 64 11/01/22 23:00 36.6 C 64 18 102/60 95 O2 Del Method O2 Flow Rate 11/02/22 08:05 11/02/22 08:24 Room Air 11/02/22 07:24 11/02/22 04:00 Nasal Cannula 3 11/01/22 22:00 11/01/22 23:00 Nasal Cannula 3 PG Care Time/CCT Total # of Minutes Spent Total Time Spent with Patient: Total time spent is greater than 50% in coordination of care (as documented) at patient's floor/unit and/or counseling patient: Coding Level of Care Code 35979 SUB INP/OBS CARE 1/25MIN Diagnoses Left ureteral calculus N20.1 ARF (acute renal failure) N17.9
--- NOTE | 2022-11-02 13:50 | Discharge Summary ---
Date of Service November 02, 2022 Admission HPI Per Admitting Provider History obtained from patient and records. Medical history significant for CAD status post CABG/stent, PAF on Eliquis, valvular heart disease (mild MR/AR), hypertension, hyperlipidemia, pulmonary sarcoidosis on chronic steroid Rx, thyroid cancer status post surgery/radioablation, DM2 on oral medications, postsurgical hypothyroidism, GERD, urolithiasis. Last confinement July 2022 for COVID-19 pneumonia. Patient completed Decadron and remdesivir course. Patient experience achy left flank pain reminiscent of kidney stone pain around noontime today. Some nausea, no emesis. No fever, no chills. No gross hematuria. No headache, no chest pain, no SOB. Patient consulted ER for evaluation. 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 NAD, on RA. HEENT: No pallor, no icterus. Pupils equal, round and reactive to light. Oral mucosa moist. NECK: No JVD, no neck masses. HEART: S1 and S2 heard. Regular rate and rhythm. No murmur, no gallop. RESPIRATORY SYSTEM: Normal AP diameter. No accessory muscle use. No wheezing, no crackles. ABDOMEN: Soft, bowel sounds present, nontender, no distention. CENTRAL NERVOUS SYSTEM: No facial droop. Speech is clear. Obeys simple commands. Moves extremities. EXTREMITIES: No edema, no erythema seen. No CVA angle tenderness. Discharge Data Allergies Allergy/AdvReac Type Severity Reaction Status Date / Time Quinolones Allergy Unknown Unknown Verified 10/31/22 21:02 ofloxacin [From Floxin] AdvReac Severe Hallucinati Verified 10/31/22 21:02 ng empagliflozin AdvReac UTIs Verified 10/31/22 21:02 [From Dwight] Consultations 10/31/22 19:49 ED Decision to Admit Stat 10/31/22 23:26 Consult Urology Routine Procedures Performed Operation Date: 11/01/22 07:40 Actual Procedures p Cystoscopy, Retrograde Pyelogram, Left Ureteral Stent Placement(Not Applicable) - Naren Matthews, Ordered Studies 10/31/22 18:15 CT abd pelvis wo con Stat 11/01/22 FL retrograde includes kub Routine Hospital Course (1) ARF (acute renal failure): Plan 66-year-old male with PMH of CAD status post CABG/stent, PAF on Eliquis, valvular heart disease, HTN, HLD, pulmonary sarcoidosis on chronic steroid treatment, thyroid cancer status post surgery/radioablation, DM2 on oral meds, postsurgical hypothyroidism, GERD, urolithiasis presented to the ED 10/31 with complaint of achy left flank pain reminiscent of kidney stone. Denies any fever or chills or pain or burning while passing urine. He is being managed for the following: Acute renal failure Obstructive uropathy: Heart rate and temperature elevated at presentation. UA nl. Received rocpehin preoperatively, continue to monitor closely. No CVA angle tenderness. No pain/burn/freq of urination per patient. follow urine culture. Admitting BUN and creatinine 22 and 2.15, likely postobstructive renal failure. Admitting CTAP with 9 mm obstructive calculus versus 2 adjacent calculi in the distal ureter x left associated with mild to moderate left hydroureteronephrosis. Numerous additional bilateral nonobstructive renal calculi. Admitting CXR with no acute finding, admitting EKG with sinus tachycardia. Patient with no chest pain. Urology evaled, s/p stent placement; f/u w/ uro as OP. Cr improving trending, pt to maintain adequate hydration and have labs in a week time upon discharge. Resume eliquis. Other chronic medical conditions: Continue with/resume home meds as and when able. hx CAD status post CABG/stent PAF on Eliquis, patient NSR valvular heart disease (mild MR/AR) hypertension, BP stable hyperlipidemia on statin Rx thyroid cancer status post surgery/radioablation DM2 on oral medications, well-controlled as of recent hemoglobin A1c of 6.9 last July 2022 postsurgical hypothyroidism, can repeat thyroid function once out of acute illness. As an outpatient. history sarcoidosis on chronic steroid Rx for GERD, stable on regimen DVT prophylaxis: SCDs until Eliquis can be resumed. Full code Patient's Ms. Libertad Hogan, contact #[phone]. Follow-up with your primary care physician within a week time and likely you will need labs CBC/CMP/magnesium/phosphorus. Continue adequate fluid intake and hydration. Follow-up with the urine culture final results in your next PCP visit within a week time. Repeat thyroid function test in a month time, coor dinate with PCP office. CT scan imaging of your abdomen showed stones in your left ureter, urology evaluated you, you underwent stent placement. You will need to follow-up with urology upon discharge, coordinate with the office. Please make sure that you are able to get your medications today by calling your pharmacy before you leave the hospital so that your treatment continuity is not broken. Home Health Attestation I certify that this patient is under my care and that I, or a physicians dietitian assistant working with me, had a face to-face encounter that meets the home health [id number] encounter requirements with this patient. The encounter with the patient was in whole, or in part, for the following medical condition, which is the primary reason for home health care (list medical condition): I certify that, based on my findings, the following services are medically necessary home health services: My clinical findings support the need for the above services because: Further, I certify that my clinical findings support that this patient is homebound (i.e. absences from home require considerable and taxing effort and are for medical reasons or catholic services or infrequently or of short duration when for other reasons) because: Certification for Home Health Services: Based on the above findings, I certify that this patient is confined to the home and needs intermittent longterm care, physical therapy and/or speech therapy or continues to need occupational therapy. The patient is under my care, and I have initiated the establishment of the plan of care. This patient will be followed by a physician who will periodically review the plan of care. Total Time Total Time Spent Total Time Spent (In Minutes): 45 Discharge Plan Discharge Items Patient Disposition: Home - Self-Care Reason For Visit: ARF Discharge Diagnosis: Acute renal failure Obstructive uropathy Activity: Resume your previous activity Non-emergency contact: Primary Care Provider Call non-emergency contact if: you have any medication questions Follow-up/Referrals: Abundio Melissa MD [Primary Care Provider] - Diet: Carb Consistent or DM2 and Heart Healthy Addtl Attending Provider Instructions: Follow-up with your primary care physician within a week time and likely you will need labs CBC/CMP/magnesium/phosphorus. Continue adequate fluid intake and hydration. Follow-up with the urine culture final results in your next PCP visit within a week time. Repeat thyroid function test in a month time, coordinate with PCP office. CT scan imaging of your abdomen showed stones in your left ureter, urology evaluated you, you underwent stent placement. You will need to follow-up with urology upon discharge, coordinate with the office. Please make sure that you are able to get your medications today by calling your pharmacy before you leave the hospital so that your treatment continuity is not broken. Pending Studies at Discharge: Yes Stand-Alone Forms: My [facility] [employer], Smoking Cessation Medications and DC Order Prescriptions: New oxycodone 5 mg Tablet 5 mg PO QID PRN (Reason: severe pain (scale score 7-10)) Qty: 12 0RF ascorbic acid (vitamin C) [Vitamin C] 500 mg Tablet 500 mg PO MoWeFr@0900 Qty: 30 0RF Continued cyanocobalamin (vitamin B-12) 100 mcg tablet 200 mcg PO QAM atorvastatin [Lipitor] 80 mg tablet 80 mg PO HS icosapent ethyl [Vascepa] 1 gram Capsule 2 g PO AMHS alprazolam [Xanax] 0.5 mg Tablet 0.5 mg PO HS nitroglycerin [Nitrostat] 0.4 mg Tablet, Sublingual 0.4 mg Sublingual DIRECTED PRN (Reason: Chest Pain) Rx Instructions: PLACE ONE TABLET UNDER THE TONGUE EVERY 5 MINUTES FOR UP TO 3 DOSES OVER 15 MINUTES IF NEEDED FOR CHEST PAIN levothyroxine [Synthroid] 137 mcg tablet 137 mcg PO QAM ascorbic acid (vitamin C) [Vitamin C] 500 mg Tablet 500 mg PO DAILY ferrous sulfate 325 mg (65 mg iron) tablet 325 mg PO [id number] Rx Instructions: TAKES MON, WED, & FRI. TAKE THIS MEDICATION WITH VITAMIN C ondansetron 4 mg tablet,disintegrating 4 mg PO Q8H PRN (Reason: Nausea) Rx Instructions: ALLOW TABLET TO DISSOLVE ON TONGUE metformin 500 mg tablet extended release 24 hr 500 mg PO AMHS ezetimibe 10 mg tablet 10 mg PO DAILY clopidogrel 75 mg tablet 75 mg PO DAILY Eliquis 5 mg tablet 5 mg PO BID finasteride 5 mg tablet 5 mg PO QAM duloxetine 60 mg capsule,delayed release(DR/EC) 60 mg PO QAM gabapentin 300 mg capsule 300 mg PO HS Rx Instructions: Take 6-90 min prior to typical onset of restless leg syndrome pantoprazole 40 mg tablet,delayed release (DR/EC) 40 mg PO AMHS metoprolol succinate 50 mg tablet extended release 24 hr 50 mg PO AMHS tramadol 50 mg tablet 50 mg PO BID PRN (Reason: mod-severe pain) meclizine 25 mg Tablet 12.5 - 25 mg PO Q6 PRN (Reason: Dizziness) tamsulosin 0.4 mg capsule 0.4 mg PO QAM prednisone 5 mg Tablet 5 mg PO QAM Qty: 30 0RF Rx Instructions: Resume after you are done with decadron promethazine 25 mg suppository 25 mg CA Q6 PRN (Reason: Nausea) glipizide 2.5 mg tablet extended release 24hr 2.5 mg PO QAM fluticasone propionate 50 mcg/actuation spray,suspension 2 spray INTRANASAL DAILY PRN (Reason: .allergies) Repatha SureClick 140 mg/mL pen injector 140 mg SUBCUT .[id number] Rx Instructions: Did not picker tender yet benzonatate 100 mg capsule 200 mg PO TID PRN (Reason: Cough) guaifenesin [Mucinex] 600 mg tablet extended release 12hr 600 mg PO Q12 PRN (Reason: Congestion) Discharge Orders: Discharge Order (Routine); Ordered 11/02/22 Ordered By: Alexander Peres Admission Data Admit Date/Time: 10/31/22 20:35 Attending Provider: Alexander Peres Admit Provider: Marino Myles Primary Care Provider: Abundio Melissa Other Providers: Marino Myles ; Naren Matthews
--- NOTE | 2022-11-03 17:11 | Electrocardiogram Report ---
Test Reason : Blood Pressure : / mmHG Vent. Rate : 097 BPM Atrial Rate : 097 BPM P-R Int : 136 ms QRS Dur : 078 ms QT Int : 328 ms P-R-T Axes : 025 -22 007 degrees QTc Int : 415 ms Sinus rhythm Cannot rule out Inferior infarct When compared with ECG of 12-AUG-2022 15:58, No significant change Confirmed by Kun Davies ([id number]) on 11/03/2022 5:10:56 PM Referred By: REFERRED SELF Confirmed By:Kun Davies
== END 2022-11-02 14:38 | disposition home or self-care (01) | DRG 661 ==
LOC: ED 18:01 → 2W 20:35